=== PATIENT | male | born 1970 | race Caucasian/White ===

== ENCOUNTER 2020-04-12 16:24 | Outpatient (REF) | payer OTHER, SELFPAY | END 2020-04-12 16:25 | disposition home or self-care (01) | LOC: HO.LAB 16:24 | PROVIDERS: Visit Provider Internal Medicine | DX: Z20.828 Contact with and (suspected) exposure to other viral communicable diseases (principal) | CPT/HCPCS: C9803; U0003 ==

== ENCOUNTER 2020-04-24 08:27 | Outpatient (REF) | payer OTHER, SELFPAY | END 2020-04-24 08:28 | disposition home or self-care (01) | LOC: HO.LAB 08:27 | PROVIDERS: Visit Provider Internal Medicine | DX: Z20.828 Contact with and (suspected) exposure to other viral communicable diseases (principal) | CPT/HCPCS: C9803; U0003 ==

== ENCOUNTER → 2022-05-31 08:15 | Outpatient (BNVA) | payer SELFPAY | PROVIDERS: PCP Internal Medicine; Visit Provider Physician Assistant Medical | DX: Z02.79 Encounter for issue of other medical certificate (principal) ==

== ENCOUNTER 2023-03-14 08:44 | Outpatient (REF) | payer OTHER, SELFPAY | END 2023-03-14 08:45 | disposition home or self-care (01) | LOC: HO.10HDL 08:44 | PROVIDERS: Visit Provider Internal Medicine | DX: Z00.00 Encounter for general adult medical examination without abnormal findings (principal); R73.9 Hyperglycemia, unspecified; E78.00 Pure hypercholesterolemia, unspecified; E66.9 Obesity, unspecified; G47.33 Obstructive sleep apnea (adult) (pediatric); R30.0 Dysuria; E55.9 Vitamin D deficiency, unspecified; Z12.5 Encounter for screening for malignant neoplasm of prostate | CPT/HCPCS: 36415; 80053; 80061; 81003; 82306; 83036; 84153; 84443; 85025 ==

== ENCOUNTER 2023-03-16 16:53 | Outpatient (AMB) | payer OTHER, SELFPAY ==
[2023-03-16 16:58] VITALS: BP 142/94; PULSE 87; RESP 17; O2SAT 98; BMI 44.3
--- NOTE | 2023-03-16 16:58 | MHC.PC.OV ---
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 Required: No Accompanied by: Self / Same As Patient Allergies animal dander Allergy (Unknown, Verified 03/16/23 18:24) WHEEZING banana Allergy (Unknown, Verified 03/16/23 18:24) ITCHY THROAT, WHEEZING cranberry [Cranberry] Allergy (Unknown, Verified 03/16/23 18:24) WHEEZING latex Allergy (Unknown, Verified 03/16/23 18:24) WHEEZY penicillin V Allergy (Unknown, Verified 03/16/23 18:24) hives Penicillins Allergy (Unknown, Verified 03/16/23 18:24) UNKNOWN ENVIRONMENTAL Allergy (Unknown, Uncoded 03/16/23 18:24) WHEEZING SEASONAL ALLERGIES Allergy (Unknown, Uncoded 03/16/23 18:24) WHEEZING Medication List - Last Reconciled 03/16/23 by Nishant Marvin MD albuterol sulfate 90 mcg/actuation 2 puffs inhalation Q6H PRN [CPAP device As directed] [CPAP SUPPLIES (MASK, FILTERS, HOSES and HEADGEAR) As directed] montelukast 10 mg PO QPM Tobacco use date assessed: 11/14/22 Dental Screening Dental Screen Date: 03/16/23 Did you have a dental visit in the last 12 months?: Yes Did you have a dental problem in the last 6 months where you did not have access to dental care?: No Was dental information given to patient?: Patient has dentist HPI Annual Exam HPI Details Patient comes in today for his annual physical examination - was last seen by me almost 3 years ago now on 06/24/2020 States that he is currently experiencing some issues with allergies - reports (+) recurrent nasal congestion and on and off coughing for the past few weeks Also notes (+) mild chest congestion and occasional tightness lately, especially with increased activity States that he has not been taking any OTC allergy meds lately Has Montelukast, which he just refilled recently, but admits that he often forgets to take it more than he remembers to take it States that he does not think he needs to be taking it regularly - is wondering what it will do that he needs to be taking it, if at all He denies any fever or sore throat; denies any headaches or dizziness Denies any chest pains, no increased SOB although he has noticed on and off chest tightness, especially with activity or exertion, as mentioned above No nausea/vomiting, no abdominal pain No change in bowel habits noted Denies any acute urinary symptoms Had his labs done a couple of days ago - to discuss his results Adds that he has a CPAP device that he bought on his own as his old unit was recalled but he has not been able to get any supplies for it to start using it and is wondering how he can get the supplies for it Had his screening colonoscopy last done with Dr. Frances in 2019 and was advised to get this repeated in 5 years (2023) Would also like to get his flu shot and pneumonia vaccine today - states that he has never had a pneumonia vaccine in the past [facility] Medical History Obesity (BMI 30-39.9) Obstructive sleep apnea Allergic rhinitis Migraine equivalent syndrome Sinusitis COVID-19 Hernia Asthma Surgical History Status post colonoscopy (~11/13/18) Status post balloon dilatation of esophageal stricture (~05/09/12) Family History Father No problems noted. Mother High blood pressure High cholesterol Cancer COPD (chronic obstructive pulmonary disease) Social History Housing: House Alcohol intake: current Alcohol intake frequency: a few times a week Patient Tobacco Use Status: Never used Tobacco service: No Current occupational status: employed Cognitive needs: No Hearing needs: No Vision needs: No Questionnaire PHQ-9 Over the last 2 weeks, how often have you been bothered by any of the following problems? 1. Little interest or pleasure in doing things: not at all 2. Feeling down, depressed, or hopeless: not at all 3. Trouble falling or staying asleep, or sleeping too much: not at all 4. Feeling tired or having little energy: not at all 5. Poor appetite or overeating: not at all 6. Feeling bad about yourself - or that you are a failure or have let yourself or your family down: not at all 7. Trouble concentrating on things, such as reading the newspaper or watching television: not at all 8. Moving or speaking so slowly that other people could have noticed. Or the opposite - being so fidgety or restless that you have been moving around a lot more than usual: not at all 9. Thoughts that you would be better off or of hurting yourself in some way: not at all Total score: 0 Depression Screening Interpretation: Negative Depression Screening Done: Yes [id number] - PHQ-9 Billing: Yes Source: Developed by Drs. Rick Fuller, Jasmin Berger, Jaiden Hudson and colleagues, with an educational jason from [employer]. Thrive Questionnaire Date Thrive assessed: 03/16/23 I am a: Patient What is your living situation today?: I have a steady place to live Within the past 12 months, did the food you bought not last and you didn't have the money to get more?: Never true Within the past 12 months, did you worry whether your food would run out before you got money to buy more?: Never true Do you have trouble paying for medicines?: No Do you have trouble getting transportation to medical appointments?: No Do you have trouble paying your heating and electricity bill?: No Do you have trouble taking care of your child, family member or friend?: No Do you have trouble with day-to-day activities such as bathing, preparing meals, shopping, managing finances, etc.?: No Are you currently unemployed and looking for a job?: No Are you interested in more education?: No Currently or been in a relationship where the following occur: no concerns reported AUDIT C Alcohol Use Questionnaire (AUDIT-C) 1. How often do you have a drink containing alcohol?: Monthly or less 2. How many drinks containing alcohol do you have on a typical day when you are drinking?: 5 or 6 3. How often do you have six or more drinks on one occasion?: Never Total Score: 3 Score Reviewed/Action Taken: Yes OTILIA-7 AMB Questionnaire OTILIA-7 Date OTILIA - 7 assessed: 11/14/22 Source: Developed by Drs. Rick Fuller, Jasmin Berger, Jaiden Hudson and colleagues, with an educational jason from [employer]. Review of Systems Const Denies chills, Reports fatigue, Denies fever(s), Denies headache(s), Denies malaise and Denies weakness Eyes Denies blurry vision, Denies change in vision, Denies irritation and Denies itchy eyes ENT Denies dysphagia, Denies dizziness, Denies otalgia, Denies headache(s), Reports nasal congestion (on and off), Denies neck pain, Denies odynophagia and Denies sore throat Card Denies chest pain, Denies rapid heart rate, Denies irregular heart rhythm, Denies palpitations and Denies dyspnea Resp Reports chest congestion (occasionally - chest feels tight at times), Reports cough (on and off), Denies dyspnea and Reports wheezing (occasionally) GI Denies abdominal pain, Denies bloating, Denies constipation, Denies dysphagia, Denies heartburn, Denies diarrhea, Denies nausea, Denies odynophagia and Denies vomiting Denies hematuria, Denies difficulty urinating, Denies dysuria, Denies urinary frequency and Denies urinary urgency Musc Denies back pain, Denies arthralgias, Denies joint swelling, Denies muscle weakness and Denies neck pain Skin/Breast Denies change in pigmentation, Denies lesions, Denies rash and Denies unusual bruising Neuro Denies dizziness, Denies headache(s), Denies paresthesias and Denies weakness Endo Reports fatigue and Denies palpitations Aller/Immun Denies itchy eyes and Reports wheezing (occasionally) Physical exam (Primary Care) Vital Signs: Last Vital Signs Pulse 87 03/16/23 16:58 Resp 17 03/16/23 16:58 BP 142/94 H 03/16/23 16:58 Pulse Ox 98 03/16/23 16:58 Oxygen Delivery Method Room Air 03/16/23 16:58 BMI result Body Mass Index 44.3 Tobacco/Smoking Status: Tobacco use Status Tobacco use date assessed 11/14/22 03/16/23 16:58 Patient Tobacco Use Status Never used Tobacco 03/16/23 16:58 PHQ-9: PHQ-9 Score PHQ-9: Total score 0 03/16/23 17:24 Depression Screening Interpretation: Negative Thrive Assessment: Date of Thrive Assessment Date Thrive assessed 11/14/22 03/16/23 16:58 Currently or been in a relationship where the following occur: no concerns reported Const General: no acute distress, alert and awake Orientation/consciousness: patient oriented x3 [facility] Head: Yes normocephalic and Yes atraumatic Ears: external ears normal, TM's normal bilaterally and EAC's normal General nose exam: No nasal discharge present Face and sinus: Yes normal facial exam and Yes sinuses nontender Teeth and gingiva: dentition normal Throat: Yes posterior oropharynx normal and Yes tonsils normal (no TP congestion) Eyes Eyelids: Yes eyelids normal Conjunctivae: conjunctivae normal Pupils: Equal, round and reactive pupils present EOM: EOMs intact bilaterally Neck Neck: Yes no lymphadenopathy and Yes supple Thyroid: Thyroid normal Resp Auscultation: no crackles, no rales, rhonchi (scattered) throughout, wheezes (occasional, faint) expiratory wheezes and diminished lung sounds (slightly) bilateral Cardio Rate: regular rate Rhythm: regular rhythm Heart sounds: no murmurs GI Palpation (GI): Soft to palpation, nontender and No hepatosplenomegaly present Auscultation: normal bowel sounds General: Yes no CVA tenderness Back/Spine/Pelvis Back: no CVA tenderness Thoracic/Lumbar Spine: thoracic and lumbar spine normal to inspection Skin Lesions: no lesions Rashes: no rashes Neuro General: patient oriented x3, moves all extremities, no focal motor deficits and CN's II-XI intact bilaterally Cranial nerves: Yes Equal, round and reactive pupils present Cognition (Neuro): normal cognition Gait exam (Neuro): Normal gait present Extrem General: Yes no clubbing, cyanosis or edema Office Procedures Flu Questionnaire Does the patient have a severe egg allergy?: No Does the patient have severe life threatening allergies?: No Does the patient have a fever or illness today?: No Has the patient ever had Guillain-[place] Syndrome?: No Has the patient ever had any past reaction to a flu shot?: No Immunizations flu vacc [id number] 6mos up(PF) 60 mcg(15 mcgx4)/0.5 mL IM syringe Performing Provider: Nishant Marvin MD Performing Location: [facility] Administered by: KIERRA Garcia on 03/16/23 17:24 Dose Route Admin Location Dispensed Lot Number Expiration Date NDC Journeyman Operator Assistant 0.5 mL IM Left Deltoid 0.5 mL [id number] 12/02/23 99206-844-77 [employer] VIS Given Date VIS Provided VIS Publication Date 03/16/23 Single Vaccine 21 Eligibility Eligibility Date Funding Source Not VFC Eligible 03/16/23 Private pneumoc 20-chrissy conj-dip cr(PF) 0.5 mL IM syringe Performing Provider: Nishant Marvin MD Performing Location: [facility] Administered by: KIERRA Garcia on 03/16/23 17:26 Dose Route Admin Location Dispensed Lot Number Expiration Date ND Journeyman Operator Assistant 0.5 mL IM Right Deltoid 0.5 mL [id number] 04/03/24 8580-1409-84 WYETH/PFIZER VIS Given Date VIS Provided VIS Publication Date 03/16/23 Single Vaccine 21 Eligibility Eligibility Date Funding Source Not VFC Eligible 03/16/23 Private Results Reviewed Results Reviewed: Laboratory Tests 03/14/23 08:50 WBC 5.3 Hgb 14.8 Hct 43.0 Plt Count 190 Eos % (Auto) 6.0 H Sodium 141 Potassium 4.2 Creatinine 0.87 Estimated GFR > 60 Fasting Glucose 102 H Hemoglobin A1c % 4.6 Calcium 9.5 AST 29 ALT 42 H Triglycerides 119 Cholesterol 153 LDL Cholesterol, Calc 82 HDL Cholesterol 48 PSA Screen 2.15 25-OH Vitamin D Total 41.6 TSH 1.56 Urine pH 6.0 Ur Specific [place] 1.025 Urine Protein Negative Urine Glucose (UA) Negative Urine Blood Negative Assessment and Plan Assessment & Plan (1) Annual physical exam: Code(s): Z00.00 - Encounter for general adult medical examination without abnormal findings Plan: Results of his labs done a couple of days ago reviewed and discussed with patient He is up-to-date with his screening colonoscopy - was last done by Dr. Frances in 2018 and he is supposed to get this repeated in 5 years (2023) Serum PSA level done a couple of days ago came back normal (2) Asthma: Code(s): J45.909 - Unspecified asthma, uncomplicated Qualifiers: Asthma severity: mild Asthma persistence: intermittent Asthma complication type: uncomplicated Qualified Code(s): J45.20 - Mild intermittent asthma, uncomplicated Plan: Patient is advised that his asthma currently does NOT appear well-controlled and some of his recent symptoms (including chest tightness and recurrent cough) are mostly related to his asthma and not due to allergies Have advised him again (as I have mentioned to him in the past) that his Montelukast can help with BOTH his asthma and his allergies and his asthma has been well-controlled in the past on Montelukast alone, not because of his rescue inhaler (Albuterol) Advised that he SHOULD go back to taking his Montelukast 10 mg Q PM and continue on Albuterol HFA 1 to 2 inhalations Q 6 hours only as needed (3) Allergic rhinitis: Code(s): J30.9 - Allergic rhinitis, unspecified Qualifiers: Allergic rhinitis trigger: unspecified Allergic rhinitis seasonality: unspecified Qualified Code(s): J30.9 - Allergic rhinitis, unspecified Plan: Have reminded him again that Montelukast can also help with his allergies and he should start back on it and take it daily He can also again take OTC Claritin (Loratadine) 10 mg QD or Cetirizine 10 mg QD if needed He was getting allergy injections from Dr. Gamboa in the past but has not gotten any shots in the past few years now (4) Migraine equivalent syndrome: Code(s): G43.109 - Migraine with aura, not intractable, without status migrainosus Plan: Patient states that his migraine seems to still be stable/controlled and has not been bothering him much lately and does not need anything for headaches at this time He has seen neurology in the past but has not been back for follow up in a few years now (5) Obstructive sleep apnea: Code(s): G47.33 - Obstructive sleep apnea (adult) (pediatric) Plan: States that he acquired a new CPAP device on his own [id number] about a year or so ago as his old unit was included in a recall but he has not been able to use his new device at all as he does not have the parts needed to use it, including the mask, hose and filters, and does not know where he can get them Have advised patient that we can write him a prescription for these and send them to a local medical or surgical instrument maker supplier and see if they can help him out with these Alternatively, if the medical supplier cannot help him, have advised that we can refer him to Sleep Medicine for further management and they may be able to help him obtain the necessary equipments and parts for him to start using his device again (6) Morbid obesity with BMI of 40.0-44.9, adult: Code(s): E66.01 - Morbid (severe) obesity due to excess calories; Z68.41 - Body mass index [BMI] 40.0-44.9, adult Plan: Reinforced diet/exercise as tolerated/lose weight - is aware that he has gained a lot of weight since we last saw him a few years ago Plan Per request, flu vaccine and pneumonia vaccine given today Follow up in 6 months Orders: Orders Influenza [id number] Immunization Today Z23 - Encounter for immunization Pneumococcal 20 Immunization Today Z23 - Encounter for immunization Medications: New [CPAP SUPPLIES (MASK, FILTERS, HOSES and HEADGEAR)] As directed 1 ea 0RF G47.33 - Obstructive sleep apnea (adult) (pediatric) Coding Level of Care Code Est Pt Prev Care 40-64y(26742) Diagnoses Annual physical exam Z00.00 Mild intermittent asthma without complication J45.20 Asthma severity: mild Asthma persistence: intermittent Asthma complication type: uncomplicated Allergic rhinitis, unspecified seasonality, unspecified trigger J30.9 Allergic rhinitis trigger: unspecified Allergic rhinitis seasonality: unspecified Migraine equivalent syndrome G43.109 Obstructive sleep apnea G47.33 Morbid obesity with BMI of 40.0-44.9, adult E66.01; Z68.41
== END 2023-03-16 17:36 | disposition home or self-care (01) ==
PROVIDERS: PCP Internal Medicine; Visit Provider Internal Medicine
DX: Z00.00 Encounter for general adult medical examination without abnormal findings (principal); E66.01 Morbid (severe) obesity due to excess calories; Z68.41 Body mass index [BMI] 40.0-44.9, adult; J45.20 Mild intermittent asthma, uncomplicated; Z23 Encounter for immunization; J30.9 Allergic rhinitis, unspecified; G43.109 Migraine with aura, not intractable, without status migrainosus; G47.33 Obstructive sleep apnea (adult) (pediatric)
CPT/HCPCS: 90471; 90472; 90677; 90686; 99396

== ENCOUNTER 2023-12-11 16:50 | Outpatient (AMB) | payer BC, SELFPAY ==
--- NOTE | 2023-12-11 16:58 | MHC.PC.OV ---
Vital Signs 12/11/23 17:01 12/11/23 17:28 Height 5 ft 4.5 in Weight 263 lb 2 oz BMI 44.5 BP 144/92 H 146/92 H Blood Pressure Location Lt brachial Lt brachial Position Sitting Sitting Pulse 90 Pulse Source Pulse Oximeter Pulse Oximetry (%) 98 Oxygen Delivery Method Room Air Intake Visit Reasons: 6 month f/u Outplacement Consultant Required: No Accompanied by: Self / Same As Patient Allergies animal dander Allergy (Unknown, Verified 12/11/23 17:10) WHEEZING banana Allergy (Unknown, Verified 12/11/23 17:10) ITCHY THROAT, WHEEZING cranberry [Cranberry] Allergy (Unknown, Verified 12/11/23 17:10) WHEEZING latex Allergy (Unknown, Verified 12/11/23 17:10) WHEEZY penicillin V Allergy (Unknown, Verified 12/11/23 17:10) hives Penicillins Allergy (Unknown, Verified 12/11/23 17:10) UNKNOWN ENVIRONMENTAL Allergy (Unknown, Uncoded 12/11/23 17:10) WHEEZING SEASONAL ALLERGIES Allergy (Unknown, Uncoded 12/11/23 17:10) WHEEZING Medication List - Last Reconciled 12/11/23 by Nishant Marvin MD albuterol sulfate 90 mcg/actuation 2 puffs inhalation Q6H PRN colchicine 0.3 mg (1/2 x 0.6 mg) PO DAILY 5 days [CPAP device As directed] [CPAP SUPPLIES (MASK, FILTERS, HOSES and HEADGEAR) As directed] montelukast 10 mg PO QPM Tobacco use date assessed: 12/11/23 Dental Screening Dental Screen Date: 12/11/23 Did you have a dental visit in the last 12 months?: Yes Did you have a dental problem in the last 6 months where you did not have access to dental care?: No Was dental information given to patient?: Patient has dentist HPI 6 month f/u HPI Details Patient comes in today for his follow up visit States that he currently feels okay He denies any headaches or dizziness Denies any chest pains, no SOB - states that his asthma is again much better controlled since he started back on his Montelukast No nausea/vomiting, no abdominal pain No change in bowel habits noted He continues to use his CPAP device when sleeping at night -states that it has helped him a lot and he feels more alert during the day with less drowsiness and somnolence since he started on his CPAP States that his blood pressure still seems to be high often as 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 Mother High blood pressure High cholesterol Cancer COPD (chronic obstructive pulmonary disease) Social History Housing: House Alcohol intake: current Alcohol intake frequency: a few times a week Patient Tobacco Use Status: Never used Tobacco e-Cigarette/Vaping Use: Never Used service: No Current occupational status: employed Cognitive needs: No Hearing needs: No Vision needs: No Questionnaire PHQ-9 Over the last 2 weeks, how often have you been bothered by any of the following problems? 1. Little interest or pleasure in doing things: not at all 2. Feeling down, depressed, or hopeless: not at all 3. Trouble falling or staying asleep, or sleeping too much: not at all 4. Feeling tired or having little energy: not at all 5. Poor appetite or overeating: not at all 6. Feeling bad about yourself - or that you are a failure or have let yourself or your family down: not at all 7. Trouble concentrating on things, such as reading the newspaper or watching television: not at all 8. Moving or speaking so slowly that other people could have noticed. Or the opposite - being so fidgety or restless that you have been moving around a lot more than usual: not at all 9. Thoughts that you would be better off or of hurting yourself in some way: not at all Total score: 0 Depression Screening Interpretation: Negative Depression Screening Done: Yes 81866 - PHQ-9 Billing: Yes Source: Developed by Drs. Rick Fuller, Jasmin Berger, Jaiden Hudson and colleagues, with an educational jason from [employer]. Thrive Questionnaire Date Thrive assessed: 12/11/23 I am a: Patient What is your living situation today?: I have a steady place to live Within the past 12 months, did the food you bought not last and you didn't have the money to get more?: Never true Within the past 12 months, did you worry whether your food would run out before you got money to buy more?: Never true Do you have trouble paying for medicines?: No Do you have trouble getting transportation to medical appointments?: No Do you have trouble paying your heating and electricity bill?: No Do you have trouble taking care of your child, family member or friend?: No Do you have trouble with day-to-day activities such as bathing, preparing meals, shopping, managing finances, etc.?: No Are you currently unemployed and looking for a job?: No Are you interested in more education?: No Please select the resources that you would like help with: None Currently or been in a relationship where the following occur: No concerns reported THRIVE Score: 0 AUDIT C Alcohol Use Questionnaire (AUDIT-C) 1. How often do you have a drink containing alcohol?: Monthly or less 2. How many drinks containing alcohol do you have on a typical day when you are drinking?: 5 or 6 3. How often do you have six or more drinks on one occasion?: Never Total Score: 3 Score Reviewed/Action Taken: Yes OTILIA-7 AMB Questionnaire OTILIA-7 Date OTILIA - 7 assessed: 12/11/23 Feeling nervous, anxious, or on edge: 0 = Not at all Not being able to stop or control worryin = Not at all Worrying too much about different things: 0 = Not at all Trouble relaxin = Not at all Being so restless that it is hard to sit still: 0 = Not at all Becoming easily annoyed or irritable: 0 = Not at all Feeling afraid as if something awful might happen: 0 = Not at all Total OTILIA-7 score (0-4 normal; 5-9 mild; 10-14 moderate; 15-21 severe): 0 Source: Developed by Drs. Rick Fuller, Jasmin Berger, Jaiden Hudson and colleagues, with an educational jason from [employer]. OTILIA-7 Assessment Billing OTILIA-7 Assessment Tool: OTILIA-7 Assessment 07449 Review of Systems Const Denies chills, Denies fatigue, Denies fever(s) and Denies headache(s) ENT Denies dysphagia, Denies dizziness, Denies otalgia, Denies headache(s), Denies neck pain, Denies odynophagia and Denies sore throat Card Denies chest pain, Denies palpitations and Denies dyspnea Resp Denies cough and Denies dyspnea GI Denies abdominal pain, Denies constipation, Denies dysphagia, Denies heartburn, Denies diarrhea, Denies nausea, Denies odynophagia and Denies vomiting Denies dysuria, Denies nocturia and Denies urinary frequency Musc Denies back pain and Denies neck pain Skin/Breast Denies rash Neuro Denies dizziness and Denies headache(s) Endo Denies fatigue and Denies palpitations Physical exam (Primary Care) Vital Signs: Last Vital Signs Pulse 90 12/11/23 17:01 BP 144/92 H 12/11/23 17:01 Pulse Ox 98 12/11/23 17:01 Oxygen Delivery Method Room Air 12/11/23 17:01 BMI result Body Mass Index 44.5 Tobacco/Smoking Status: Tobacco use Status Tobacco use date assessed 12/11/23 12/11/23 17:03 Patient Tobacco Use Status Never used Tobacco 12/11/23 17:03 e-Cigarette/Vaping Use Never Used 12/11/23 17:03 PHQ-9: PHQ-9 Score PHQ-9: Total score 0 12/11/23 17:03 Depression Screening Interpretation: Negative Thrive Assessment: Date of Thrive Assessment Date Thrive assessed 12/11/23 12/11/23 17:03 Currently or been in a relationship where the following occur: No concerns reported Const General: no acute distress and alert HENMT Throat: Yes posterior oropharynx normal and Yes tonsils normal (no TP congestion) Neck Neck: Yes no lymphadenopathy and Yes supple Thyroid: Thyroid normal Resp Auscultation: clear to auscultation bilaterally, no rales and no wheezes Cardio Rate: regular rate Rhythm: regular rhythm Heart sounds: no murmurs GI Palpation (GI): Soft to palpation and nontender Auscultation: normal bowel sounds General: Yes no CVA tenderness Back/Spine/Pelvis Back: no CVA tenderness Thoracic/Lumbar Spine: No lumbar spinal tenderness Skin Rashes: no rashes Extrem General: Yes no clubbing, cyanosis or edema Assessment and Plan Assessment & Plan (1) Essential hypertension: Code(s): I10 - Essential (primary) hypertension Plan: Have advised patient that with his multiple elevated BP readings, he now actually has hypertension and not just elevated blood pressure anymore Reinforced low sodium diet Have offered to start him on BP meds but he again declined - states that he will now work seriously on trying to lose weight first and if that is not enough to get his BP to goal, then he will agree to start taking the Rx He is aware of the effects and consequences of uncontrolled or suboptimally controlled BP, including renal, cardiac and [employer] events Have advised him in the meantime to check and monitor his blood pressure regularly - goal is systolic BP of 120 mm or less and diastolic BP of 85 mm or less (2) Asthma: Code(s): J45.909 - Unspecified asthma, uncomplicated Qualifiers: Asthma severity: mild Asthma persistence: intermittent Asthma complication type: uncomplicated Qualified Code(s): J45.20 - Mild intermittent asthma, uncomplicated Plan: Stable/controlled Patient states that his asthma has been much better controlled again since he started back on Montelukast 10 mg Q PM at our suggestion at his last visit a few months ago Continue Montelukast 10 mg Q PM and Albuterol HFA 1 to 2 inhalations Q 6 hours only as needed (3) Allergic rhinitis: Code(s): J30.9 - Allergic rhinitis, unspecified Qualifiers: Allergic rhinitis trigger: unspecified Allergic rhinitis seasonality: unspecified Qualified Code(s): J30.9 - Allergic rhinitis, unspecified Plan: Continue Montelukast 10 mg Q PM He can also still take OTC Claritin (Loratadine) 10 mg QD or Cetirizine 10 mg QD if needed He was getting allergy injections from Dr. Gamboa in the past but has not gotten any shots in the past few years (4) Migraine equivalent syndrome: Code(s): G43.109 - Migraine with aura, not intractable, without status migrainosus Plan: Patient states that his migraine has been stable/controlled and has not been bothering him lately; he does not need anything for headaches at this time He has seen neurology in the past but has not been back for follow up in a few years (5) Obstructive sleep apnea: Code(s): G47.33 - Obstructive sleep apnea (adult) (pediatric) Plan: Continue using his CPAP device when sleeping at night daily Feels that his CPAP therapy has helped him a lot as he feels more alert during the day (6) Morbid obesity with BMI of 40.0-44.9, adult: Code(s): E66.01 - Morbid (severe) obesity due to excess calories; Z68.41 - Body mass index [BMI] 40.0-44.9, adult Plan: Reinforced diet/exercise as tolerated/lose weight Plan To return in 6 months for his next annual physical examination He is reminded to get his follow up labs done just BEFORE he comes in for his appointment in 6 months Orders: Orders Comprehensive [place]. Panel Fast 6 Months E78.00 - Pure hypercholesterolemia, unspecified, Z00.00 - Encounter for general adult medical examination without abnormal findings TSH reflex Free T4 6 Months E78.00 - Pure hypercholesterolemia, unspecified, Z00.00 - Encounter for general adult medical examination without abnormal findings Vitamin D 25-OH Total 6 Months E55.9 - Vitamin D deficiency, unspecified, Z00.00 - Encounter for general adult medical examination without abnormal findings Prostate Specific Antigen Scr 6 Months Z00.00 - Encounter for general adult medical examination without abnormal findings Complete Blood Count Auto Diff 6 Months D64.9 - Anemia, unspecified, Z00.00 - Encounter for general adult medical examination without abnormal findings Lipid Panel 6 Months E78.00 - Pure hypercholesterolemia, unspecified, Z00.00 - Encounter for general adult medical examination without abnormal findings UA CC w/rflx Micro + Cult 6 Months R30.0 - Dysuria, Z00.00 - Encounter for general adult medical examination without abnormal findings Referrals Nutrition/Dietitian Referral E66.01 - Morbid (severe) obesity due to excess calories, Z68.41 - Body mass index [BMI] 40.0-44.9, adult Coding Level of Care Code Est Pt Level 4 (43589) Diagnoses Essential hypertension I10 Mild intermittent asthma without complication J45.20 Asthma severity: mild Asthma persistence: intermittent Asthma complication type: uncomplicated Allergic rhinitis, unspecified seasonality, unspecified trigger J30.9 Allergic rhinitis trigger: unspecified Allergic rhinitis seasonality: unspecified Migraine equivalent syndrome G43.109 Obstructive sleep apnea G47.33 Morbid obesity with BMI of 40.0-44.9, adult E66.01; Z68.41 Additional Codes OTILIA-7 Assessment Billing - OTILIA-7 Assessment Tool: OTILIA-7 Assessment 88732 ([id number])
[2023-12-11 17:01] VITALS: BP 144/92; PULSE 90; O2SAT 98; BMI 44.5
[2023-12-11 17:28] VITALS: BP 146/92
== END 2023-12-11 17:30 | disposition home or self-care (01) ==
PROVIDERS: PCP Internal Medicine; Visit Provider Internal Medicine
DX: I10 Essential (primary) hypertension (principal); E66.01 Morbid (severe) obesity due to excess calories; Z68.41 Body mass index [BMI] 40.0-44.9, adult; J45.20 Mild intermittent asthma, uncomplicated; J30.9 Allergic rhinitis, unspecified; G43.109 Migraine with aura, not intractable, without status migrainosus; G47.33 Obstructive sleep apnea (adult) (pediatric)
CPT/HCPCS: 99214

== ENCOUNTER 2023-12-19 13:19 | Outpatient (AMB) | payer BC, SELFPAY ==
[2023-12-19 13:42] VITALS: BMI 45.7
--- NOTE | 2023-12-19 13:42 | A.OFFVIS_ITS ---
VS Expanded 12/19/23 13:42 Height 5 ft 4.5 in Weight 270 lb 4.587 oz BMI 45.7 Intake Visit Reasons: MORBID OBESITY/ CONFIRMED Allergies animal dander Allergy (Unknown, Verified 12/11/23 17:10) WHEEZING banana Allergy (Unknown, Verified 12/11/23 17:10) ITCHY THROAT, WHEEZING cranberry [Cranberry] Allergy (Unknown, Verified 12/11/23 17:10) WHEEZING latex Allergy (Unknown, Verified 12/11/23 17:10) WHEEZY penicillin V Allergy (Unknown, Verified 12/11/23 17:10) hives Penicillins Allergy (Unknown, Verified 12/11/23 17:10) UNKNOWN ENVIRONMENTAL Allergy (Unknown, Uncoded 12/11/23 17:10) WHEEZING SEASONAL ALLERGIES Allergy (Unknown, Uncoded 12/11/23 17:10) WHEEZING Nutrition Presentation Details: Patient presents for medical nutrition therapy for morbid obesity. Patient was referred by primary care physician Dr. Marvin. Patient reports having tried meal replacements in the past leading to 230 lb weight loss in a month, but also leading to lack of taste for food. Patient wants to work on healthy meal pattern B: ham/eggs/2 wraps, coffee with sugar /cream L: BBq chicken and beans , kombucha or seltzer water snack: soup ( clam chowder/split peas) dinner: chicken / hamburger with bun, water Food frequency Dairy: 10+ Fruits: 1 a day Fish: 1 time per week Vegetables: Typically starchy vegetables Fried foods: 3 to 4 times week Physical activity: Daily life activities Alcohol: Positive Smoking: Denies BS Monitoring Most Recent Diabetes Results: Cholesterol 153 mg/dL (<200) 03/14/23 HDL Cholesterol 48 mg/dL (>40) 03/14/23 Triglycerides 119 mg/dL (<150) 03/14/23 Creatinine 0.87 mg/dL (0.5-1.4) 03/14/23 Blood Urea Nitrogen 21 mg/dL (9-16) H 03/14/23 Sodium 141 mmol/L (135-145) 03/14/23 Potassium 4.2 mmol/L (3.3-5.1) 03/14/23 Chloride 108 mmol/L (96-108) 03/14/23 Carbon Dioxide 22 mmol/L (22-29) 03/14/23 Calcium 9.5 mg/dL (8.4-10.2) 03/14/23 AST 29 U/L (5-37) 03/14/23 ALT 42 U/L (0-40) H 03/14/23 Total Protein 6.9 g/dL (6.5-8.0) 03/14/23 Albumin 4.1 g/dL (3.5-5.0) 03/14/23 SRP-Fkgulgy-Ef.Jeor Equation Height: 5 ft 4.5 in Weight: 270 lb Resting Metabolic Rate: 1981.81 Calculated Activity Level: Sedentary Calories Needed to Maintain Weight: 2378.17 Diagnosis Nutrition problem #1: excessive energy intake As related to (etiology) #1: diagnosis As evidenced by (sign/symptom) #1: high BMI (45.7(12/2023)) [facility] Medical History (Updated 12/11/23 @ 18:02 by Nishant Marvin MD) Essential hypertension Obesity (BMI 30-39.9) Obstructive sleep apnea Allergic rhinitis Migraine equivalent syndrome Sinusitis COVID-19 Hernia Asthma Surgical History Status post colonoscopy (~11/13/18) Status post balloon dilatation of esophageal stricture (~05/09/12) Family History Father No problems noted. Mother High blood pressure High cholesterol Cancer COPD (chronic obstructive pulmonary disease) Social History Housing: House Alcohol intake: current Alcohol intake frequency: a few times a week Patient Tobacco Use Status: Never used Tobacco e-Cigarette/Vaping Use: Never Used service: No Current occupational status: employed Cognitive needs: No Hearing needs: No Vision needs: No Assessment & Plan Assessment & Plan (1) Obesity (BMI 30-39.9): Code(s): E66.9 - Obesity, unspecified Category: Medical Plan: Wt: 123 Kg ( 12/2023 ) Est kcal needs as per MSJ: 2500 (40% carb, 30% protein/fat) Est fluid needs as per 25-30 ml/d: Est prot per day as per 1 g/kg bw: Recommend fiber intake : 8-10 g per day and gradually increase to 25-28 g per day for women and 35-38 g for men or as tolerated Recommend sodium intake per day : less than 2000 mg Educated patient on: ( R = reviewed V = verbalizes understanding N/R = needs review N/A = not applicable * Food sources of carbohydrate, adequate serving sizes and its role in various health conditions: R * Differences between complex carbohydrates a simple carbohydrates, role of fiber in diet: R V N/R * Lean protein sources of foods: R V * Differences between types of fats and role in diet (mono on saturated fat fatty acids, saturated fatty acids, trans fats): R * Food sources of sodium in salt and healthy modifications for heart health in kidney health: R V R/V * Vitamins and minerals: R V N/R * Healthy plate method concept: R * Physical activity: Benefits a precaution: R V N/R Patient Instructions: Practice mindful eating Reduce on empty calorie beverages (sodas, choose drinks, alcohol), choose water herbs or fruit infused water See healthy plate method meal ideas low in fat and sugars Coding Level of Care Code Nutr Indiv Intake (78388) Diagnoses Obesity (BMI 30-39.9) E66.9 Time Spent (min) 30
[2023-12-26 08:41] VITALS: BMI 45.6
== END 2023-12-19 14:12 | disposition home or self-care (01) ==
PROVIDERS: PCP Internal Medicine; Visit Provider Dietitian, Registered
DX: E66.9 Obesity, unspecified (principal)

== ENCOUNTER → 2023-12-19 13:19 | Outpatient (BNVA) | payer BC, SELFPAY | PROVIDERS: PCP Internal Medicine; Visit Provider Dietitian, Registered | DX: E66.9 Obesity, unspecified (principal); Z68.41 Body mass index [BMI] 40.0-44.9, adult; Z71.3 Dietary counseling and surveillance | CPT/HCPCS: 97802 ==

== ENCOUNTER 2024-01-31 14:03 | Outpatient (AMB) | payer BC, SELFPAY ==
[2024-01-31 14:06] VITALS: BMI 44.9
--- NOTE | 2024-01-31 14:06 | A.OFFVIS_ITS ---
VS Expanded 01/31/24 14:06 Height 5 ft 4.5 in Weight 265 lb 10.512 oz BMI 44.9 Intake Visit Reasons: Obesity/CONFIRMED Allergies animal dander Allergy (Unknown, Verified 12/11/23 17:10) WHEEZING banana Allergy (Unknown, Verified 12/11/23 17:10) ITCHY THROAT, WHEEZING cranberry [Cranberry] Allergy (Unknown, Verified 12/11/23 17:10) WHEEZING latex Allergy (Unknown, Verified 12/11/23 17:10) WHEEZY penicillin V Allergy (Unknown, Verified 12/11/23 17:10) hives Penicillins Allergy (Unknown, Verified 12/11/23 17:10) UNKNOWN ENVIRONMENTAL Allergy (Unknown, Uncoded 12/11/23 17:10) WHEEZING SEASONAL ALLERGIES Allergy (Unknown, Uncoded 12/11/23 17:10) WHEEZING Nutrition Presentation Details: Pt presents for MNT f/u for obesity Pt reports working on reduction BS Monitoring Most Recent Diabetes Results: Cholesterol 153 mg/dL (<200) 03/14/23 HDL Cholesterol 48 mg/dL (>40) 03/14/23 Triglycerides 119 mg/dL (<150) 03/14/23 Creatinine 0.87 mg/dL (0.5-1.4) 03/14/23 Blood Urea Nitrogen 21 mg/dL (9-16) H 03/14/23 Sodium 141 mmol/L (135-145) 03/14/23 Potassium 4.2 mmol/L (3.3-5.1) 03/14/23 Chloride 108 mmol/L (96-108) 03/14/23 Carbon Dioxide 22 mmol/L (22-29) 03/14/23 Calcium 9.5 mg/dL (8.4-10.2) 03/14/23 AST 29 U/L (5-37) 03/14/23 ALT 42 U/L (0-40) H 03/14/23 Total Protein 6.9 g/dL (6.5-8.0) 03/14/23 Albumin 4.1 g/dL (3.5-5.0) 03/14/23 [facility] Medical History (Updated 12/11/23 @ 18:02 by Nishant Marvin MD) Essential hypertension Obesity (BMI 30-39.9) Obstructive sleep apnea Allergic rhinitis Migraine equivalent syndrome Sinusitis COVID-19 Hernia Asthma Surgical History Status post colonoscopy (~11/13/18) Status post balloon dilatation of esophageal stricture (~05/09/12) Family History Father No problems noted. Mother High blood pressure High cholesterol Cancer COPD (chronic obstructive pulmonary disease) Social History Housing: House Alcohol intake: current Alcohol intake frequency: a few times a week Patient Tobacco Use Status: Never used Tobacco e-Cigarette/Vaping Use: Never Used service: No Current occupational status: employed Cognitive needs: No Hearing needs: No Vision needs: No Assessment & Plan Assessment & Plan (1) Obesity (BMI 30-39.9): Code(s): E66.9 - Obesity, unspecified Category: Medical Plan: Wt: 123 Kg ( 12/2023 ), 121 kg (01/25) Est kcal needs as per MSJ: 2500 (40% carb, 30% protein/fat) Est fluid needs as per 25-30 ml/d: 3700 Est prot per day as per 1 g/kg bw: 123 Recommend fiber intake : 8-10 g per day and gradually increase to 25-28 g per day for women and 35-38 g for men or as tolerated Recommend sodium intake per day : less than 2000 mg Educated patient on: ( R = reviewed V = verbalizes understanding N/R = needs review N/A = not applicable * Food sources of carbohydrate, adequate serving sizes and its role in various health conditions: R * Differences between complex carbohydrates a simple carbohydrates, role of fiber in diet: R * Lean protein sources of foods: R V * Differences between types of fats and role in diet (mono on saturated fat fatty acids, saturated fatty acids, trans fats): R * Food sources of sodium in salt and healthy modifications for heart health in kidney health: R V R/V * Vitamins and minerals: R * Healthy plate method concept: R * Physical activity: Benefits a precaution: R Patient Instructions: Increase on fluids (choose low sugar/decaf options) water /fruit/herb infused water Snack on carrots/celery vs chips Engage in walking start with 10 minutes /day and gradually increase to 30 min or as tolerated Coding Level of Care Code Nutr Indiv Subseq (25547) Diagnoses Obesity (BMI 30-39.9) E66.9 Time Spent (min) 30
== END 2024-01-31 14:30 | disposition home or self-care (01) ==
PROVIDERS: PCP Internal Medicine; Visit Provider Dietitian, Registered
DX: E66.9 Obesity, unspecified (principal)

== ENCOUNTER → 2024-01-31 14:03 | Outpatient (BNVA) | payer BC, SELFPAY | PROVIDERS: PCP Internal Medicine; Visit Provider Dietitian, Registered | DX: E66.9 Obesity, unspecified (principal); Z68.41 Body mass index [BMI] 40.0-44.9, adult; Z71.3 Dietary counseling and surveillance | CPT/HCPCS: 97803 ==

== ENCOUNTER 2024-03-06 14:32 | Outpatient (AMB) | payer BC, SELFPAY ==
[2024-03-06 14:36] VITALS: BMI 37.9
--- NOTE | 2024-03-06 14:36 | A.OFFVIS_ITS ---
VS Expanded 03/06/24 14:36 Height 5 ft 10.2 in Weight 265 lb 10.512 oz BMI 37.9 Intake Visit Reasons: Obesity/CONFIRMED Allergies animal dander Allergy (Unknown, Verified 12/11/23 17:10) WHEEZING banana Allergy (Unknown, Verified 12/11/23 17:10) ITCHY THROAT, WHEEZING cranberry [Cranberry] Allergy (Unknown, Verified 12/11/23 17:10) WHEEZING latex Allergy (Unknown, Verified 12/11/23 17:10) WHEEZY penicillin V Allergy (Unknown, Verified 12/11/23 17:10) hives Penicillins Allergy (Unknown, Verified 12/11/23 17:10) UNKNOWN ENVIRONMENTAL Allergy (Unknown, Uncoded 12/11/23 17:10) WHEEZING SEASONAL ALLERGIES Allergy (Unknown, Uncoded 12/11/23 17:10) WHEEZING Nutrition Presentation Details: Pt presents for MNT f/u for obesity Pt reports no new dietary modifications. BS Monitoring Most Recent Diabetes Results: Cholesterol 153 mg/dL (<200) 03/14/23 HDL Cholesterol 48 mg/dL (>40) 03/14/23 Triglycerides 119 mg/dL (<150) 03/14/23 Creatinine 0.87 mg/dL (0.5-1.4) 03/14/23 Blood Urea Nitrogen 21 mg/dL (9-16) H 03/14/23 Sodium 141 mmol/L (135-145) 03/14/23 Potassium 4.2 mmol/L (3.3-5.1) 03/14/23 Chloride 108 mmol/L (96-108) 03/14/23 Carbon Dioxide 22 mmol/L (22-29) 03/14/23 Calcium 9.5 mg/dL (8.4-10.2) 03/14/23 AST 29 U/L (5-37) 03/14/23 ALT 42 U/L (0-40) H 03/14/23 Total Protein 6.9 g/dL (6.5-8.0) 03/14/23 Albumin 4.1 g/dL (3.5-5.0) 03/14/23 [facility] Medical History (Updated 12/11/23 @ 18:02 by Nishant Marvin MD) Essential hypertension Obesity (BMI 30-39.9) Obstructive sleep apnea Allergic rhinitis Migraine equivalent syndrome Sinusitis COVID-19 Hernia Asthma Surgical History Status post colonoscopy (~11/13/18) Status post balloon dilatation of esophageal stricture (~05/09/12) Family History Father No problems noted. Mother High blood pressure High cholesterol Cancer COPD (chronic obstructive pulmonary disease) Social History Housing: House Alcohol intake: current Alcohol intake frequency: a few times a week Patient Tobacco Use Status: Never used Tobacco e-Cigarette/Vaping Use: Never Used service: No Current occupational status: employed Cognitive needs: No Hearing needs: No Vision needs: No Assessment & Plan Assessment & Plan (1) Obesity (BMI 30-39.9): Code(s): E66.9 - Obesity, unspecified Category: Medical Plan: Wt: 123 Kg ( 12/2023 ), 121 kg (01/25, 03/27) Est kcal needs as per MSJ: 2500 (40% carb, 30% protein/fat) Est fluid needs as per 25-30 ml/d: 3700 Est prot per day as per 1 g/kg bw: 123 Recommend fiber intake : 8-10 g per day and gradually increase to 25-28 g per day for women and 35-38 g for men or as tolerated Recommend sodium intake per day : less than 2000 mg Educated patient on: ( R = reviewed V = verbalizes understanding N/R = needs review N/A = not applicable * Food sources of carbohydrate, adequate serving sizes and its role in various health conditions: R * Differences between complex carbohydrates a simple carbohydrates, role of fiber in diet: R * Lean protein sources of foods: R V * Differences between types of fats and role in diet (mono on saturated fat fatty acids, saturated fatty acids, trans fats): R * Food sources of sodium in salt and healthy modifications for heart health in kidney health: R V R/V * Vitamins and minerals: R * Healthy plate method concept: R * Physical activity: Benefits a precaution: R * empty calorie foods: R Patient Instructions: walk 3 times a week for 30 minutes and gradually increase to 1 hour oras tolerated reduce on empty calories (beverages, sodas and similar and pastries/fats) Coding Level of Care Code Nutr Indiv Subseq (25334) Diagnoses Obesity (BMI 30-39.9) E66.9 Time Spent (min) 30
== END 2024-03-06 15:02 | disposition home or self-care (01) ==
PROVIDERS: PCP Internal Medicine; Visit Provider Dietitian, Registered
DX: E66.9 Obesity, unspecified (principal)

== ENCOUNTER → 2024-03-06 14:32 | Outpatient (BNVA) | payer BC, SELFPAY | PROVIDERS: PCP Internal Medicine; Visit Provider Dietitian, Registered | DX: E66.9 Obesity, unspecified (principal); Z68.37 Body mass index [BMI] 37.0-37.9, adult; Z71.3 Dietary counseling and surveillance | CPT/HCPCS: 97803 ==

== ENCOUNTER 2024-03-17 17:09 | Outpatient (AMB) | payer BC, SELFPAY ==
[2024-03-17 17:14] VITALS: BP 136/84; PULSE 77; O2SAT 97; BMI 44.5
--- NOTE | 2024-03-17 17:14 | MHC.PC.OV ---
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 Accompanied by: Self / Same As Patient Allergies animal dander Allergy (Unknown, Verified 03/17/24 17:40) WHEEZING banana Allergy (Unknown, Verified 03/17/24 17:40) ITCHY THROAT, WHEEZING cranberry [Cranberry] Allergy (Unknown, Verified 03/17/24 17:40) WHEEZING latex Allergy (Unknown, Verified 03/17/24 17:40) WHEEZY penicillin V Allergy (Unknown, Verified 03/17/24 17:40) hives Penicillins Allergy (Unknown, Verified 03/17/24 17:40) UNKNOWN ENVIRONMENTAL Allergy (Unknown, Uncoded 03/17/24 17:40) WHEEZING SEASONAL ALLERGIES Allergy (Unknown, Uncoded 03/17/24 17:40) WHEEZING Medication List - Last Reconciled 03/17/24 by Nishant Marvin MD albuterol sulfate 90 mcg/actuation 2 puffs inhalation Q6H PRN colchicine 0.3 mg (1/2 x 0.6 mg) PO DAILY 5 days [CPAP device As directed] [CPAP SUPPLIES (MASK, FILTERS, HOSES and HEADGEAR) As directed] montelukast 10 mg PO QPM Tobacco use date assessed: 03/17/24 Dental Screening Dental Screen Date: 03/17/24 Did you have a dental visit in the last 12 months?: Yes Did you have a dental problem in the last 6 months where you did not have access to dental care?: No Was dental information given to patient?: Patient has dentist HPI Physical HPI Details Patient comes in today for his annual physical examination States that he feels okay but still has a recurrent cough and some congestion, which he thinks are likely due to allergies He had a bout with bronchitis last month that he states improved with the Z-robert that we sent in for him He denies any fever or sore throat; denies any headaches or dizziness Denies any chest pains, no increased SOB No nausea/vomiting, no abdominal pain No change in bowel habits noted He denies any acute urinary symptoms States that he tried to go get his labs done the other day but was advised that he has no labs ordered until June 2024 Adds that he recently received a letter/notice from Dr. Frances' office informing him that it is time for his repeat colonoscopy and that he should call Dr. Frances' office to schedule his appointment [facility] Medical History Essential hypertension Obesity (BMI 30-39.9) Obstructive sleep apnea Allergic rhinitis Migraine equivalent syndrome Sinusitis COVID-19 Hernia Asthma Surgical History Status post colonoscopy (~11/13/18) Status post balloon dilatation of esophageal stricture (~05/09/12) Family History Father No problems noted. Mother High blood pressure High cholesterol Cancer COPD (chronic obstructive pulmonary disease) Social History Housing: House Alcohol intake: current Alcohol intake frequency: a few times a week Patient Tobacco Use Status: Never used Tobacco e-Cigarette/Vaping Use: Never Used service: No Current occupational status: employed Cognitive needs: No Hearing needs: No Vision needs: No Questionnaire PHQ-9 Over the last 2 weeks, how often have you been bothered by any of the following problems? 1. Little interest or pleasure in doing things: not at all 2. Feeling down, depressed, or hopeless: not at all 3. Trouble falling or staying asleep, or sleeping too much: not at all 4. Feeling tired or having little energy: not at all 5. Poor appetite or overeating: not at all 6. Feeling bad about yourself - or that you are a failure or have let yourself or your family down: not at all 7. Trouble concentrating on things, such as reading the newspaper or watching television: not at all 8. Moving or speaking so slowly that other people could have noticed. Or the opposite - being so fidgety or restless that you have been moving around a lot more than usual: not at all 9. Thoughts that you would be better off or of hurting yourself in some way: not at all Total score: 0 Depression Screening Interpretation: Negative Depression Screening Done: Yes 50202 - PHQ-9 Billing: Yes Source: Developed by Drs. Rick Fuller, Jasmin Berger, Jaiden Hudson and colleagues, with an educational jason from [employer]. Thrive Questionnaire Date Thrive assessed: 03/17/24 I am a: Patient What is your living situation today?: I have a steady place to live Within the past 12 months, did the food you bought not last and you didn't have the money to get more?: Often true Within the past 12 months, did you worry whether your food would run out before you got money to buy more?: Never true Do you have trouble paying for medicines?: No Do you have trouble getting transportation to medical appointments?: No Do you have trouble paying your heating and electricity bill?: No Do you have trouble taking care of your child, family member or friend?: No Do you have trouble with day-to-day activities such as bathing, preparing meals, shopping, managing finances, etc.?: No Are you currently unemployed and looking for a job?: No Are you interested in more education?: No Please select the resources that you would like help with: None Currently or been in a relationship where the following occur: No concerns reported THRIVE Score: 1 AUDIT C Alcohol Use Questionnaire (AUDIT-C) 1. How often do you have a drink containing alcohol?: 2-4 times a month 2. How many drinks containing alcohol do you have on a typical day when you are drinking?: 3 or 4 3. How often do you have six or more drinks on one occasion?: Less than monthly Total Score: 4 Score Reviewed/Action Taken: Yes OTILIA-7 AMB Questionnaire OTILIA-7 Date OTILIA - 7 assessed: 03/17/24 Feeling nervous, anxious, or on edge: 0 = Not at all Not being able to stop or control worryin = Not at all Worrying too much about different things: 0 = Not at all Trouble relaxin = Not at all Being so restless that it is hard to sit still: 0 = Not at all Becoming easily annoyed or irritable: 0 = Not at all Feeling afraid as if something awful might happen: 0 = Not at all Total OTILIA-7 score (0-4 normal; 5-9 mild; 10-14 moderate; 15-21 severe): 0 Source: Developed by Drs. Rick Fuller, Jasmin Berger, Jaiden Hudson and colleagues, with an educational jason from [employer]. Review of Systems Const Denies chills, Denies fatigue, Denies fever(s), Denies headache(s), Denies malaise and Denies weakness Eyes Denies blurry vision, Denies change in vision, Denies irritation and Denies itchy eyes ENT Denies dysphagia, Denies dizziness, Denies otalgia, Denies headache(s), Reports nasal congestion (mild), Denies neck pain, Denies odynophagia and Denies sore throat Card Denies chest pain, Denies rapid heart rate, Denies irregular heart rhythm, Denies palpitations and Denies dyspnea Resp Denies chest congestion, Reports cough (on and off, non-productive), Denies dyspnea and Denies wheezing GI Denies abdominal pain, Denies bloating, Denies constipation, Denies dysphagia, Denies heartburn, Denies diarrhea, Denies nausea, Denies odynophagia and Denies vomiting Denies hematuria, Denies difficulty urinating, Denies dysuria, Denies urinary frequency and Denies urinary urgency Musc Denies back pain, Denies arthralgias, Denies joint swelling, Denies muscle weakness and Denies neck pain Skin/Breast Denies change in pigmentation, Denies lesions, Denies rash and Denies unusual bruising Neuro Denies dizziness, Denies headache(s), Denies paresthesias and Denies weakness Endo Denies fatigue and Denies palpitations Aller/Immun Denies itchy eyes and Denies wheezing Physical exam (Primary Care) Vital Signs: Last Vital Signs Pulse 77 03/17/24 17:14 BP 136/84 03/17/24 17:14 Pulse Ox 97 03/17/24 17:14 Oxygen Delivery Method Room Air 03/17/24 17:14 BMI result Body Mass Index 44.5 Tobacco/Smoking Status: Tobacco use Status Tobacco use date assessed 03/17/24 03/17/24 17:22 Patient Tobacco Use Status Never used Tobacco 03/17/24 17:22 e-Cigarette/Vaping Use Never Used 03/17/24 17:22 PHQ-9: PHQ-9 Score PHQ-9: Total score 0 03/17/24 17:45 Depression Screening Interpretation: Negative Thrive Assessment: Date of Thrive Assessment Date Thrive assessed 03/17/24 03/17/24 17:22 Currently or been in a relationship where the following occur: No concerns reported Const General: no acute distress, alert and awake Orientation/consciousness: [facility]: Yes normocephalic and Yes atraumatic Ears: external ears normal, TM's normal bilaterally and EAC's normal General nose exam: No nasal discharge present Face and sinus: Yes normal facial exam and Yes sinuses nontender Teeth and gingiva: dentition normal Throat: Yes posterior oropharynx normal and Yes tonsils normal (no TP congestion) Eyes Eyelids: Yes eyelids normal Conjunctivae: conjunctivae normal Pupils: Equal, round and reactive pupils present EOM: EOMs intact bilaterally Neck Neck: Yes no lymphadenopathy and Yes supple Thyroid: Thyroid normal Resp Auscultation: clear to auscultation bilaterally, no rales, rhonchi (occasional) throughout and no wheezes Cardio Rate: regular rate Rhythm: regular rhythm Heart sounds: no murmurs GI Palpation (GI): Soft to palpation, nontender and No hepatosplenomegaly present Auscultation: normal bowel sounds General: Yes no CVA tenderness Back/Spine/Pelvis Back: no CVA tenderness Thoracic/Lumbar Spine: thoracic and lumbar spine normal to inspection Skin Lesions: no lesions Rashes: no rashes Neuro General: patient oriented x3, moves all extremities, no focal motor deficits and CN's II-XI intact bilaterally Cranial nerves: Yes Equal, round and reactive pupils present Cognition (Neuro): normal cognition Gait exam (Neuro): Normal gait present Extrem General: Yes no clubbing, cyanosis or edema Coding Level of Care Code Est Pt Prev Care 40-64y(59212) Diagnoses Annual physical exam Z00.00 Essential hypertension I10 Mild intermittent asthma without complication J45.20 Asthma severity: mild Asthma persistence: intermittent Asthma complication type: uncomplicated Allergic rhinitis, unspecified seasonality, unspecified trigger J30.9 Allergic rhinitis trigger: unspecified Allergic rhinitis seasonality: unspecified Migraine equivalent syndrome G43.109 Obstructive sleep apnea G47.33 Morbid obesity with BMI of 40.0-44.9, adult E66.01; Z68.41 Assessment & Plan Assessment & Plan (1) Annual physical exam: Code(s): Z00.00 - Encounter for general adult medical examination without abnormal findings Category: Medical Plan: Check labs He is due for his repeat colonoscopy and will be contacting Dr. Frances' office to schedule his appointment [facility] (2) Essential hypertension: Code(s): I10 - Essential (primary) hypertension Category: Medical Plan: Reinforced low sodium diet - goal is systolic BP of 120 mm or less and diastolic BP of 85 mm or less Have offered to start him on BP meds in the past but he declined - states that he would like to work on trying to lose weight first and if that is not enough to get his BP to goal, then he will agree to start taking Rx His BP today appears slightly better as he has been able to lose some weight since his last visit Patient is reminded to continue monitoring his blood pressure regularly (3) Asthma: Code(s): J45.909 - Unspecified asthma, uncomplicated Category: Medical Qualifiers: Asthma severity: mild Asthma persistence: intermittent Asthma complication type: uncomplicated Qualified Code(s): J45.20 - Mild intermittent asthma, uncomplicated Plan: Stable/controlled Continue Montelukast 10 mg Q PM and Albuterol HFA 1 to 2 inhalations Q 6 hours only as needed (4) Allergic rhinitis: Code(s): J30.9 - Allergic rhinitis, unspecified Category: Medical Qualifiers: Allergic rhinitis trigger: unspecified Allergic rhinitis seasonality: unspecified Qualified Code(s): J30.9 - Allergic rhinitis, unspecified Plan: Continue Montelukast 10 mg Q PM He can also take OTC Claritin (Loratadine) 10 mg QD or Cetirizine 10 mg QD if needed He was getting allergy injections from Dr. Gamboa in the past but has not gotten any shots in the past few years (5) Migraine equivalent syndrome: Code(s): G43.109 - Migraine with aura, not intractable, without status migrainosus Category: Medical Plan: Patient states that his migraine has been stable/controlled and has not been bothering him lately; he does not need anything for headaches at this time He has seen neurology in the past but has not been back for follow up in a few years (6) Obstructive sleep apnea: Code(s): G47.33 - Obstructive sleep apnea (adult) (pediatric) Category: Medical Plan: Continue using his CPAP device when sleeping at night daily Feels that his CPAP therapy has helped him a lot as he feels more alert during the day (7) Morbid obesity with BMI of 40.0-44.9, adult: Code(s): E66.01 - Morbid (severe) obesity due to excess calories; Z68.41 - Body mass index [BMI] 40.0-44.9, adult Category: Medical Plan: Reinforced diet/exercise as tolerated/lose weight Plan Follow up in 6 months
== END 2024-03-17 17:48 | disposition home or self-care (01) ==
PROVIDERS: PCP Internal Medicine; Visit Provider Internal Medicine
DX: Z00.00 Encounter for general adult medical examination without abnormal findings (principal); I10 Essential (primary) hypertension; E66.813 Obesity, class 3; Z68.41 Body mass index [BMI] 40.0-44.9, adult; J45.20 Mild intermittent asthma, uncomplicated; J30.9 Allergic rhinitis, unspecified; G43.109 Migraine with aura, not intractable, without status migrainosus; G47.33 Obstructive sleep apnea (adult) (pediatric)

== ENCOUNTER → 2024-03-17 17:09 | Outpatient (BNVA) | payer BC, SELFPAY | PROVIDERS: PCP Internal Medicine; Visit Provider Internal Medicine ==

== ENCOUNTER 2024-04-09 14:30 | Outpatient (AMB) | payer BC, SELFPAY ==
[2024-04-09 14:35] VITALS: BMI 44.3
--- NOTE | 2024-04-09 14:35 | A.OFFVIS_ITS ---
VS Expanded 04/09/24 14:35 Height 5 ft 4.3 in Weight 260 lb 9.382 oz BMI 44.3 Intake Visit Reasons: Obesity Allergies animal dander Allergy (Unknown, Verified 03/17/24 17:40) WHEEZING banana Allergy (Unknown, Verified 03/17/24 17:40) ITCHY THROAT, WHEEZING cranberry [Cranberry] Allergy (Unknown, Verified 03/17/24 17:40) WHEEZING latex Allergy (Unknown, Verified 03/17/24 17:40) WHEEZY penicillin V Allergy (Unknown, Verified 03/17/24 17:40) hives Penicillins Allergy (Unknown, Verified 03/17/24 17:40) UNKNOWN ENVIRONMENTAL Allergy (Unknown, Uncoded 03/17/24 17:40) WHEEZING SEASONAL ALLERGIES Allergy (Unknown, Uncoded 03/17/24 17:40) WHEEZING Nutrition Presentation Details: Pt presents for MNT f/u for obesity Pt reports walking 2 times /wk and continue to work on reducing on empty calories beverages. BS Monitoring Most Recent Diabetes Results: Cholesterol 153 mg/dL (<200) 03/14/23 HDL Cholesterol 48 mg/dL (>40) 03/14/23 Triglycerides 119 mg/dL (<150) 03/14/23 Creatinine 0.87 mg/dL (0.5-1.4) 03/14/23 Blood Urea Nitrogen 21 mg/dL (9-16) H 03/14/23 Sodium 141 mmol/L (135-145) 03/14/23 Potassium 4.2 mmol/L (3.3-5.1) 03/14/23 Chloride 108 mmol/L (96-108) 03/14/23 Carbon Dioxide 22 mmol/L (22-29) 03/14/23 Calcium 9.5 mg/dL (8.4-10.2) 03/14/23 AST 29 U/L (5-37) 03/14/23 ALT 42 U/L (0-40) H 03/14/23 Total Protein 6.9 g/dL (6.5-8.0) 03/14/23 Albumin 4.1 g/dL (3.5-5.0) 03/14/23 COUNTS INCLUDE 234 BEDS AT THE [facility] Medical History Essential hypertension Obesity (BMI 30-39.9) Obstructive sleep apnea Allergic rhinitis Migraine equivalent syndrome Sinusitis COVID-19 Hernia Asthma Surgical History Status post colonoscopy (~11/13/18) Status post balloon dilatation of esophageal stricture (~05/09/12) Family History Father No problems noted. Mother High blood pressure High cholesterol Cancer COPD (chronic obstructive pulmonary disease) Social History Housing: House Alcohol intake: current Alcohol intake frequency: a few times a week Patient Tobacco Use Status: Never used Tobacco e-Cigarette/Vaping Use: Never Used service: No Current occupational status: employed Cognitive needs: No Hearing needs: No Vision needs: No Assessment & Plan Assessment & Plan (1) Obesity (BMI 30-39.9): Code(s): E66.9 - Obesity, unspecified Category: Medical Plan: Wt: 123 Kg ( 12/2023 ), 121 kg (01/25, 03/27), 118 (kg) 04/27 Est kcal needs as per MSJ: 2400 (40% carb, 30% protein/fat) Est fluid needs as per 25-30 ml/d: 3500 Est prot per day as per 1 g/kg bw: 123 Recommend fiber intake : 8-10 g per day and gradually increase to 25-28 g per day for women and 35-38 g for men or as tolerated Recommend sodium intake per day : less than 2000 mg Educated patient on: ( R = reviewed V = verbalizes understanding N/R = needs review N/A = not applicable * Food sources of carbohydrate, adequate serving sizes and its role in various health conditions: R * Differences between complex carbohydrates a simple carbohydrates, role of fiber in diet: R * Lean protein sources of foods: R V * Differences between types of fats and role in diet (mono on saturated fat fatty acids, saturated fatty acids, trans fats): R * Food sources of sodium in salt and healthy modifications for heart health in kidney health: R * Vitamins and minerals: R * Healthy plate method concept: R * Physical activity: Benefits a precaution: R * empty calorie foods.beverages: R Patient Instructions: increase frequency of walks to 4 times a week Reduce on the empty calorie beverages Increase in water intake , carry with it Be mindful of fats/sweets Coding Level of Care Code Nutr Indiv Subseq (40441) Diagnoses Obesity (BMI 30-39.9) E66.9 Time Spent (min) 20
== END 2024-04-09 14:55 | disposition home or self-care (01) ==
LOC: HO.ENCR 14:30
PROVIDERS: PCP Internal Medicine; Visit Provider Dietitian, Registered
DX: E66.9 Obesity, unspecified (principal)

== ENCOUNTER → 2024-04-09 14:30 | Outpatient (BNVA) | payer BC, SELFPAY | PROVIDERS: PCP Internal Medicine; Visit Provider Dietitian, Registered | DX: E66.9 Obesity, unspecified (principal); Z68.41 Body mass index [BMI] 40.0-44.9, adult; Z71.3 Dietary counseling and surveillance | CPT/HCPCS: 97803 ==

== ENCOUNTER 2024-05-13 14:36 | Outpatient (AMB) | payer BC, SELFPAY ==
--- NOTE | 2024-05-13 14:48 | A.OFFVIS_ITS ---
VS Expanded 05/13/24 14:49 Height 5 ft 4.3 in Weight 269 lb 2.951 oz BMI 45.8 Intake Visit Reasons: Obesity/Confirmed-k.h Allergies animal dander Allergy (Unknown, Verified 03/17/24 17:40) WHEEZING banana Allergy (Unknown, Verified 03/17/24 17:40) ITCHY THROAT, WHEEZING cranberry [Cranberry] Allergy (Unknown, Verified 03/17/24 17:40) WHEEZING latex Allergy (Unknown, Verified 03/17/24 17:40) WHEEZY penicillin V Allergy (Unknown, Verified 03/17/24 17:40) hives Penicillins Allergy (Unknown, Verified 03/17/24 17:40) UNKNOWN ENVIRONMENTAL Allergy (Unknown, Uncoded 03/17/24 17:40) WHEEZING SEASONAL ALLERGIES Allergy (Unknown, Uncoded 03/17/24 17:40) WHEEZING Nutrition Presentation Details: Pt presents for MNT f/u for obesity Pt reports increasing food portions BS Monitoring Most Recent Diabetes Results: No Data to Display [facility] Medical History Essential hypertension Obesity (BMI 30-39.9) Obstructive sleep apnea Allergic rhinitis Migraine equivalent syndrome Sinusitis COVID-19 Hernia Asthma Surgical History Status post colonoscopy (~11/13/18) Status post balloon dilatation of esophageal stricture (~05/09/12) Family History Father No problems noted. Mother High blood pressure High cholesterol Cancer COPD (chronic obstructive pulmonary disease) Social History Housing: House Alcohol intake: current Alcohol intake frequency: a few times a week Patient Tobacco Use Status: Never used Tobacco e-Cigarette/Vaping Use: Never Used service: No Current occupational status: employed Cognitive needs: No Hearing needs: No Vision needs: No Assessment & Plan Assessment & Plan (1) Obesity (BMI 30-39.9): Code(s): E66.9 - Obesity, unspecified Category: Medical Plan: Wt: 123 Kg ( 12/2023 ), 121 kg (01/25, 03/27), 118 (kg) 04/27, 122 kg (05/27) Est kcal needs as per MSJ: 2400 (40% carb, 30% protein/fat) Est fluid needs as per 25-30 ml/d: 3500 Est prot per day as per 1 g/kg bw: 123 Recommend fiber intake : 8-10 g per day and gradually increase to 25-28 g per day for women and 35-38 g for men or as tolerated Recommend sodium intake per day : less than 2000 mg Educated patient on: ( R = reviewed V = verbalizes understanding N/R = needs review N/A = not applicable * Food sources of carbohydrate, adequate serving sizes and its role in various health conditions: R * Differences between complex carbohydrates a simple carbohydrates, role of fiber in diet: R * Lean protein sources of foods: R V * Differences between types of fats and role in diet (mono on saturated fat fatty acids, saturated fatty acids, trans fats): R * Food sources of sodium in salt and healthy modifications for heart health in kidney health: R * Vitamins and minerals: R * Healthy plate method concept: R * Physical activity: Benefits a precaution: R * empty calorie foods.beverages: R Patient Instructions: Resume meal planning and practicing mindful eating HAve a protein shake once a day as a meal replacement Coding Level of Care Code Nutr Indiv Subseq (46399) Diagnoses Obesity (BMI 30-39.9) E66.9 Time Spent (min) 30
[2024-05-13 14:49] VITALS: BMI 45.8
== END 2024-05-13 15:05 | disposition home or self-care (01) ==
PROVIDERS: PCP Internal Medicine; Visit Provider Dietitian, Registered
DX: E66.9 Obesity, unspecified (principal)

== ENCOUNTER → 2024-05-13 14:36 | Outpatient (BNVA) | payer BC, SELFPAY | PROVIDERS: PCP Internal Medicine; Visit Provider Dietitian, Registered | DX: E66.9 Obesity, unspecified (principal); Z68.42 Body mass index [BMI] 45.0-49.9, adult; Z71.3 Dietary counseling and surveillance | CPT/HCPCS: 97803 ==

== ENCOUNTER 2024-05-16 07:46 | Outpatient (REF) | payer BC, SELFPAY ==
[2024-05-16 10:25] LABS: MANUAL DIFF FLAG NO
[2024-05-16 10:28] LABS: Appearance Urine Turbid; Color Urine Dark Yellow; Glucose Urine UA Negative (Negative); Leukocyte Esterase Urine Negative (Negative); Nitrite Urine Negative (Negative); Specific Gravity - Urine 1.025 (1.005-1.025); Urine Blood Negative (Negative); Urine Ketones Negative (Negative); Urine Protein Negative (Neg-Trace)
[2024-05-16 10:31] LABS: Basophils Absolute Auto 0.1 X10*3/uL (0.0-0.2); Basophils Percent Auto 0.7 % (0-2); Eosinophils Absolute Auto 0.5 X10*3/uL (0.0-0.4); Eosinophils Percent Auto 7.1 % (0-4); Hematocrit 42.4 % (42.0-52.0); Imm Gran Abs Auto 0.01 X10*3/uL (0.00-0.03); Imm Gran Pct Auto 0.1 % (0.0-0.4); Lymphocytes Absolute Auto 1.4 X10*3/uL (1.2-4.9); Lymphocytes Percent Auto 20.1 % (20-40); Mean Corpuscular HGB Conc 35.4 g/dl (31.0-36.0); Mean Corpuscular Volume 90.4 fL (80.0-98.0); Mean Platelet Volume 9.9 fL (9.4-12.4); Monocytes Absolute Auto 0.7 X10*3/uL (0.1-1.2); Neutrophils Absolute Auto 4.2 x10*3/uL (2.0-8.3); Platelet Count 196 X10*3/uL (160-400); Red Blood Count 4.69 X10*6/uL (4.60-5.80); Red Cell Distribution Width 12.3 % (11.0-16.0); White Blood Count 6.8 X10*3/uL (4.8-10.8)
[2024-05-16 11:02] LABS: Alanine Aminotransferase 57 U/L (0-40); Alkaline Phosphatase 52 U/L (39-117); Anion Gap 8 (12-20); Aspartate Amino Transferase 36 U/L (5-37); Bilirubin Total 0.9 mg/dL (0.0-1.0); Blood Urea Nitrogen 22 mg/dL (9-16); Calcium 9.3 mg/dL (8.4-10.2); Carbon Dioxide 27 mmol/L (22-29); Chloride 109 mmol/L (96-108); Cholesterol 143 mg/dL (<200); Estimated Glomerular Filt Rate > 60; Glucose Fasting 119 mg/dL (60-99); HDL Cholesterol 47 mg/dL (>40); LDL Cholesterol Calculated 73 mg/dL (<100); Potassium 4.4 mmol/L (3.3-5.1); Sodium 140 mmol/L (135-145); Total Protein 6.9 g/dL (6.5-8.0); Triglycerides 116 mg/dL (<150)
[2024-05-16 11:03] LABS: TSH reflex Free T4 1.33 uIU/mL (0.32-4.0); Vitamin D 25-OH Total 33.9 ng/mL (>30)
[2024-05-16 11:04] LABS: Prostate Specific Antigen Scr 2.82 ng/mL (<0.05-4.0)
== END 2024-05-16 07:47 | disposition home or self-care (01) ==
LOC: HO.10HDL 07:46
PROVIDERS: Visit Provider Internal Medicine
DX: Z00.00 Encounter for general adult medical examination without abnormal findings (principal); Z12.5 Encounter for screening for malignant neoplasm of prostate; E78.00 Pure hypercholesterolemia, unspecified; R30.0 Dysuria; E55.9 Vitamin D deficiency, unspecified; D64.9 Anemia, unspecified
CPT/HCPCS: 36415; 80053; 80061; 81003; 82306; 84153; 84443; 85025

== ENCOUNTER 2024-08-05 13:23 | Emergency (ER) | payer BC, SELFPAY ==
--- NOTE | ~2024-08-05 | CT_ITS ---
CLINICAL HISTORY: migraine, change in pattern and frequency CT head without contrast Comparison: CT/SR - BRAIN WO IV CONTRAST [id number] - 08/10/18 17:31 EST Findings: No intra-axial mass, midline shift, hydrocephalus, or acute hemorrhage. No significant atrophy-like change or white matter disease. The visualized paranasal sinuses and mastoid air cells are normal. The orbits are within normal limits. There is no acute fracture. IMPRESSION: 1. No acute intracranial findings. This document has been electronically signed by: Jose A Murphy MD, PHD on 08/06/2024 02:09:05
[2024-08-05 14:10] VITALS: BP 169/104; PULSE 108; RESP 16; TEMP 37; O2SAT 98; BMI 44.8
--- NOTE | 2024-08-05 14:18 | ED_ITS ---
HPI - Headache General Chief Complaint: Headache Stated Complaint: Migraine Time Seen by Provider: 08/05/24 23:55 Source: patient Mode of arrival: ambulatory Limitations: no limitations History of Present Illness ED Provider: Noelle Arriaga NP HPI Narrative: Patient is a 54-year-old male who presents emergency department for evaluation. He endorses a history of migraine headaches, recently has noticed an increase in the frequency of occurrence. He states that previously he would experience 1 very infrequently every a few years or so. Over the past few weeks he has had head least 2 or 3 a week, overall has a feeling that it has never completely gone away either. Primarily right sided temporoparietal region. endorses associated aura including vision changes/blurred vision and feeling ?out of it and disconnected? prior to headache onset. States his primary care doctor has referred him to Neurology but does not have an appointment until November of this year. Denies any red flag symptoms including fevers, chills, neck stiffness, malaise, aphasia, weakness, poor coordination, descriptors such as ?the worst headache ever ?or ?thunderclap?, or painful temporal region. Denies dizziness, lightheadedness, vision changes, URI symptoms, chest pain, shortness of breath, numbness or tingling of the extremities. Related Data Previous Rx's ?Medication ?Instructions ?Recorded colchicine 0.6 mg tablet 0.3 mg (1/2 x 0.6 mg) PO DAILY 5 06/06/23 days #3 tabs CPAP SUPPLIES (MASK, FILTERS, #1 ea 06/29/23 HOSES and HEADGEAR) CPAP device #1 ea 06/29/23 albuterol sulfate 90 mcg/actuation 2 puff inhalation Q6H PRN for 12/04/23 aerosol inhaler wheezing #8.5 ea montelukast 10 mg tablet 10 mg PO QPM #90 tabs 02/29/24 azithromycin 250 mg tablet See Rx Instructions PO .COMPLEX #6 07/30/24 tabs Allergies Allergy/AdvReac Type Severity Reaction Status Date / Time animal dander Allergy Unknown WHEEZING Verified 08/05/24 14:14 banana Allergy Unknown ITCHY Verified 08/05/24 14:14 THROAT, WHEEZING cranberry [Cranberry] Allergy Unknown WHEEZING Verified 08/05/24 14:14 latex Allergy Unknown WHEEZY Verified 08/05/24 14:14 penicillin V Allergy Unknown hives Verified 08/05/24 14:14 Penicillins Allergy Unknown UNKNOWN Verified 08/05/24 14:14 ENVIRONMENTAL Allergy Unknown WHEEZING Uncoded 03/17/24 17:40 SEASONAL ALLERGIES Allergy Unknown WHEEZING Uncoded 03/17/24 17:40 Review of Systems 2 Review of Systems: Yes all other systems are reviewed and are negative PMFSH Past Medical History Attestation statement: The following information was validated with the patient. Source: old records reviewed Medical History Essential hypertension Obesity (BMI 30-39.9) Obstructive sleep apnea Allergic rhinitis Migraine equivalent syndrome Sinusitis COVID-19 Hernia Asthma Surgical History Status post colonoscopy (~11/13/18) Status post balloon dilatation of esophageal stricture (~05/09/12) Family History Family History Father No problems noted. Mother High blood pressure High cholesterol Cancer COPD (chronic obstructive pulmonary disease) Social History Social History Housing: House Alcohol intake: current Alcohol intake frequency: does not drink Patient Tobacco Use Status: Never used Tobacco Smoked in Last 30 Days: No e-Cigarette/Vaping Use: Never Used Use of substances other than those prescribed or required for medical reasons: No Advance Directives: No Advance Directives Information Provided: Yes service: No Current occupational status: employed Cognitive needs: No Hearing needs: No Vision needs: No Physical Exam 2 Vital Signs: Vital Signs: Last Vital Signs Temp 97.6 F 08/06/24 02:23 Pulse 74 08/06/24 02:23 Resp 16 08/06/24 02:23 BP 160/88 H 08/06/24 02:23 Pulse Ox 98 08/06/24 02:23 O2 Del Method Room Air 08/06/24 02:23 BMI result Body Mass Index 44.8 Appearance: Alert.?Oriented to person, place and time. No acute distress.?Normal affect. Head: Normocephalic, atraumatic Eyes: Pupils equal, round and reactive to light. EOMI. No nystagmus. No ptosis. No tenderness to palpation over the temporal region. ENT: External auditory canal normal tympanic membrane pearly seymour and intact bilaterally. Oropharynx normal. Neck: Normal inspection.? Neck supple. No nuchal rigidity. CVS: Heart sounds normal. Normal heart rate and rhythm.? Pulses normal.?? Respiratory: No respiratory distress.? Lung sounds clear to auscultation bilaterally?? Abdomen: Soft and non-tender. Normoactive bowel sounds. ?? Skin: Skin warm and dry.? Normal skin color.? ?? Extremities: No lower extremity edema.? Neuro: Moves all extremities spontaneously. Sensation intact bilaterally. CN II- XII intact. No focal neuro deficits. Ambulatory with steady gait. Course Course Course Narrative: This is an RME: Additional HPI, ROS, PE not included below will be deferred to primary provider. RME assessment and note performed by: Marisol Torres PA-C this is a 54-year-old male, with a history of migraines, who presents emergency department with complaints of increased frequency of migraines. Patient reports pain is primarily behind his right eye. He states that he was seen by his primary care physician, who wants him to see neuro however will take until November for the referral. he is neurologically intact. Plan; viral swabs, labs, CT head Reevaluation(s) Reevaluation #1: Patient with a history of recurrent and or similar headache, there is no substantial change to typical headache pattern, there are no red flag symptoms, no focal neurological deficits, no high risk comorbidities, at this time feel that patient is stable for discharge home Medical Decision Making Medical Decision Making MDM Narrative: Patient is a 54-year-old male with past medical history of hypertension, IRWIN, allergic rhinitis, migraine, hernia, asthma who presents emergency department for evaluation of migraines as per HPI. Given his age, and change in frequency abruptly over the past 3 weeks, will obtain head CT to exclude intracranial mass/lesion, lower suspicion for ICH, SDH, infarct. He has no focal neurological deficits on examination. He was noted to have elevated blood pressure reading on arrival 169/104, subsequently 179/102, has history of hypertension, not currently on antihypertensives has declined them from his PCP prior, citing that he wanted to attempt weight loss first. On reassessment it is 160/88, not consistent with hypertensive crisis. Differential Diagnosis Differential Diagnoses: The differential diagnosis associated with the presentation includes (SDH, SAH, ICH, CONSULTING SENIOR PRACTICE DIRECTOR mass, meningitis, encephalitis, CVA, GCA, migraine, headache) Admission/Observation Consideration of admission/observation: Escalation of care including admission/observation considered Lab Data MDM Lab Attestation statement: I reviewed the patient's lab results. CBC is without leukocytosis, anemia, thrombocytopenia. No electrolyte derangement. No RAN. LFTs overall unremarkable. Viral serologies are negative. 08/05/24 15:00 08/05/24 15:00 Labs: Lab Results 08/05/24 Range/Units 15:00 WBC 8.2 (4.8-10.8) X10*3/uL RBC 4.74 (4.60-5.80) X10*6/uL Hgb 15.0 (14.0-18.0) g/dl Hct 42.3 (42.0-52.0) % MCV 89.2 (80.0-98.0) fL MCH 31.6 (27.0-33.0) pg MCHC 35.5 (31.0-36.0) g/dl RDW 12.5 (11.0-16.0) % Plt Count 206 (160-400) X10*3/uL MPV 9.7 (9.4-12.4) fL Immature Gran % (Auto) 0.4 (0.0-0.4) % Neut % (Auto) 67.0 (45-73) % Lymph % (Auto) 20.7 (20-40) % [place] % (Auto) 8.2 (2-11) % Eos % (Auto) 3.1 (0-4) % Baso % (Auto) 0.6 (0-2) % Lymph # (Auto) 1.7 (1.2-4.9) X10*3/uL [place] # (Auto) 0.7 (0.1-1.2) X10*3/uL Eos # (Auto) 0.3 (0.0-0.4) X10*3/uL Baso # (Auto) 0.1 (0.0-0.2) X10*3/uL Abs Immat Gran (auto) 0.03 (0.00-0.03) X10*3/uL Absolute Neuts (auto) 5.5 (2.0-8.3) x10*3/uL Absolute Nucleated RBC 0.000 (0.0-0.012) X10*3/uL Nucleated RBC % (auto) 0.0 (0.0-0.2) /100WBC Sodium 141 (135-145) mmol/L Potassium 4.1 (3.3-5.1) mmol/L Chloride 105 (96-108) mmol/L Carbon Dioxide 28 (22-29) mmol/L Anion Gap 12 (12-20) BUN 21 H (9-16) mg/dL Creatinine 1.29 (0.5-1.4) mg/dL Estim Creat Clear Calc 77.5 Estimated GFR 58 Random Glucose 106 (60-115) mg/dL Calcium 9.9 D (8.4-10.2) mg/dL Total Bilirubin 0.6 (0.0-1.0) mg/dL AST 37 (5-37) U/L ALT 49 H (0-40) U/L Alkaline Phosphatase 58 (39-117) U/L Total Protein 7.4 (6.5-8.0) g/dL Albumin 4.1 (3.5-5.0) g/dL Influenza Type A (PCR) NEGATIVE (Negative) Influenza Type B (PCR) NEGATIVE (Negative) RSV RNA Qual (PCR) NEGATIVE (Negative) SARS-CoV-2 RNA (RT-PCR) NEGATIVE (Negative) Radiology Impression Discussion of test interpretation with radiology: I have reviewed the radiologist's reading. External Record Review External record reviewed: Outpatient record Chronic Conditions Patient?s care impacted by: Other (See narrative above) Discharge Plan Discharge Clinical Impression: Migraine Patient Disposition: Home, Self-Care Instructions: Migraine Headache (ED) Additional Instructions: Head CT was normal without any acute findings. This is reassuring. Follow-up with your primary care doctor in the interim while we were awaiting evaluation from Neurology in regard to the change in frequency of your migraine headaches. You may return to emergency department any new or worsening symptoms or concerns. Prescriptions: No Action colchicine 0.6 mg tablet 0.3 mg PO DAILY 5 Days Qty: 3 0RF (DME) CPAP device See Rx Instructions .Route .MEDSUPPLY Qty: 1 0RF Rx Instructions: As directed (DME) CPAP SUPPLIES (MASK, FILTERS, HOSES and HEADGEAR) See Rx Instructions .Route .MEDSUPPLY Qty: 1 0RF Rx Instructions: As directed albuterol sulfate 90 mcg/actuation HFA aerosol inhaler 2 puff inhalation Q6H PRN (Reason: for wheezing) Qty: 8.5 3RF montelukast 10 mg tablet 10 mg PO QPM Qty: 90 1RF azithromycin 250 mg tablet See Rx Instructions PO .COMPLEX Qty: 6 0RF Rx Instructions: take 500 mg today (day 1), then 250 mg for 4 days (days 2-5) PO Referrals: Nishant Marvin MD [Primary Care Provider] - Interventions: ED Discharge Assessment Last Done: 08/06/24 02:23 Discharge Date/Time: 08/06/24 02:23 Print Language: Welsh
[2024-08-05 15:05] LABS: MANUAL DIFF FLAG NO
[2024-08-05 15:07] LABS: Basophils Absolute Auto 0.1 X10*3/uL (0.0-0.2); Basophils Percent Auto 0.6 % (0-2); Eosinophils Absolute Auto 0.3 X10*3/uL (0.0-0.4); Eosinophils Percent Auto 3.1 % (0-4); Hematocrit 42.3 % (42.0-52.0); Imm Gran Abs Auto 0.03 X10*3/uL (0.00-0.03); Imm Gran Pct Auto 0.4 % (0.0-0.4); Lymphocytes Absolute Auto 1.7 X10*3/uL (1.2-4.9); Lymphocytes Percent Auto 20.7 % (20-40); Mean Corpuscular HGB Conc 35.5 g/dl (31.0-36.0); Mean Corpuscular Hemoglobin 31.6 pg (27.0-33.0); Mean Corpuscular Volume 89.2 fL (80.0-98.0); Mean Platelet Volume 9.7 fL (9.4-12.4); Monocytes Absolute Auto 0.7 X10*3/uL (0.1-1.2); Monocytes Percent Auto 8.2 % (2-11); Neutrophils Absolute Auto 5.5 x10*3/uL (2.0-8.3); Platelet Count 206 X10*3/uL (160-400); Red Blood Count 4.74 X10*6/uL (4.60-5.80); Red Cell Distribution Width 12.5 % (11.0-16.0); White Blood Count 8.2 X10*3/uL (4.8-10.8)
[2024-08-05 15:26] LABS: Alanine Aminotransferase 49 U/L (0-40); Albumin Level 4.1 g/dL (3.5-5.0); Anion Gap 12 (12-20); Aspartate Amino Transferase 37 U/L (5-37); Bilirubin Total 0.6 mg/dL (0.0-1.0); Blood Urea Nitrogen 21 mg/dL (9-16); Calcium 9.9 mg/dL (8.4-10.2); Carbon Dioxide 28 mmol/L (22-29); Chloride 105 mmol/L (96-108); Creatinine Clr Calc Pharmacy 77.5; Estimated Glomerular Filt Rate 58; Glucose Random 106 mg/dL (60-115); Potassium 4.1 mmol/L (3.3-5.1); Sodium 141 mmol/L (135-145); Total Protein 7.4 g/dL (6.5-8.0)
[2024-08-05 15:46] LABS: Influenza A PCR NEGATIVE (Negative); Influenza B PCR NEGATIVE (Negative); Resp Syncy Virus RNA Qual PCR NEGATIVE (Negative); SARS COV2 PCR INHOUSE NEGATIVE (Negative)
[2024-08-05 17:45] LABS: Alkaline Phosphatase 58 U/L (39-117)
[2024-08-05 21:30] VITALS: BP 179/102; PULSE 79; RESP 18; TEMP 37.2; O2SAT 96
[2024-08-06 00:55] VITALS: BP 160/88; PULSE 74; RESP 16; O2SAT 98
--- NOTE | 2024-08-06 01:23 | PC.NURSE ---
Provider into discuss plan of care. pt awaiting CT Scan
--- NOTE | 2024-08-06 02:18 | PC.NURSE ---
provider into discuss CT-scan results, will review discharge instructions with pt.
--- NOTE | 2024-08-06 02:22 | PC.NURSE ---
reviewed discharge instructions with pt, pt verbalized understanding, no sign of distress, pt ambulated with a steady gait upon discharge.
[2024-08-06 02:23] VITALS: BP 160/88; PULSE 74; RESP 16; TEMP 36.4; O2SAT 98
== END 2024-08-06 02:23 | disposition home or self-care (01) ==
PROVIDERS: Physician Assistant Medical; Emergency Provider Emergency Medicine Emergency Medical Services; PCP Internal Medicine
DX: G43.909 Migraine, unspecified, not intractable, without status migrainosus (principal); I10 Essential (primary) hypertension; J45.909 Unspecified asthma, uncomplicated; Z03.818 Encounter for observation for suspected exposure to other biological agents ruled out
CPT/HCPCS: 0241U; 36415; 70450; 80053; 85025; 99284

== ENCOUNTER → 2024-08-06 00:46 | Outpatient (BNV) | payer BC, SELFPAY | PROVIDERS: Emergency Provider Emergency Medicine Emergency Medical Services; PCP Internal Medicine; Visit Provider General Practice | DX: G44.52 New daily persistent headache (NDPH) (principal) | CPT/HCPCS: 70450 ==

== ENCOUNTER 2024-09-08 16:56 | Outpatient (AMB) | payer BC, SELFPAY ==
[2024-09-08 17:04] VITALS: BP 162/104; PULSE 98; O2SAT 97; BMI 44.6
--- NOTE | 2024-09-08 17:04 | A.OFFPC_ITS ---
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 Required: No Accompanied by: Self / Same As Patient Allergies animal dander Allergy (Unknown, Verified 09/08/24 17:17) WHEEZING banana Allergy (Unknown, Verified 09/08/24 17:17) ITCHY THROAT, WHEEZING cranberry [Cranberry] Allergy (Unknown, Verified 09/08/24 17:17) WHEEZING latex Allergy (Unknown, Verified 09/08/24 17:17) WHEEZY penicillin V Allergy (Unknown, Verified 09/08/24 17:17) hives Penicillins Allergy (Unknown, Verified 09/08/24 17:17) UNKNOWN ENVIRONMENTAL Allergy (Unknown, Uncoded 09/08/24 17:17) WHEEZING SEASONAL ALLERGIES Allergy (Unknown, Uncoded 09/08/24 17:17) WHEEZING Medication List - Last Reconciled 09/08/24 by Nishant Marvin MD albuterol sulfate 90 mcg/actuation 2 puffs inhalation Q6H PRN colchicine 0.3 mg (1/2 x 0.6 mg) PO DAILY 5 days [CPAP device As directed] [CPAP SUPPLIES (MASK, FILTERS, HOSES and HEADGEAR) As directed] montelukast 10 mg PO QPM Tobacco use date assessed: 09/08/24 Dental Screening Dental Screen Date: 09/08/24 Did you have a dental visit in the last 12 months?: Yes Did you have a dental problem in the last 6 months where you did not have access to dental care?: No Was dental information given to patient?: Patient has dentist HPI 6 month f/u HPI Details Patient comes in today for his follow-up visit States that he has been experiencing recurrent headaches for the past month and a half now States that he also notes some visual symptoms which he describes as an aura with blurred vision and he reports feeling ?out of it often prior to his headaches occurring Notes that his headaches/pain is mostly over the right parieto-occipital area of his head He went to the ER last month for the same complaints and was sent for a head CT that came out normal He has been referred to neurology for further evaluation and has an appointment coming up with Dr. Calvert next week States that his sinus infection last month cleared up with the Azithromycin prescription that we called in for him He denies any dizziness Denies any chest pains, no increased shortness of breath No nausea/vomiting, no abdominal pain No change in bowel habits noted [facility] Medical History Essential hypertension Obesity (BMI 30-39.9) Obstructive sleep apnea Allergic rhinitis Migraine equivalent syndrome Sinusitis COVID-19 Hernia Asthma Surgical History Status post colonoscopy (~11/13/18) Status post balloon dilatation of esophageal stricture (~05/09/12) Family History (Updated 09/08/24 @ 17:07 by ISAIAS Kumar) Father Mental health disorder Mother High blood pressure High cholesterol Cancer COPD (chronic obstructive pulmonary disease) Social History Housing: House Alcohol intake: current Alcohol intake frequency: does not drink Patient Tobacco Use Status: Never used Tobacco e-Cigarette/Vaping Use: Never Used Second Hand Smoke Exposure: No service: No Current occupational status: employed Cognitive needs: No Hearing needs: No Vision needs: No Questionnaire PHQ-9 Over the last 2 weeks, how often have you been bothered by any of the following problems? 1. Little interest or pleasure in doing things: not at all 2. Feeling down, depressed, or hopeless: not at all 3. Trouble falling or staying asleep, or sleeping too much: not at all 4. Feeling tired or having little energy: not at all 5. Poor appetite or overeating: not at all 6. Feeling bad about yourself - or that you are a failure or have let yourself or your family down: not at all 7. Trouble concentrating on things, such as reading the newspaper or watching television: not at all 8. Moving or speaking so slowly that other people could have noticed. Or the opposite - being so fidgety or restless that you have been moving around a lot more than usual: not at all 9. Thoughts that you would be better off or of hurting yourself in some way: not at all Total score: 0 Depression Screening Interpretation: Negative Depression Screening Done: Yes 74743 - PHQ-9 Billing: Yes Source: Developed by Drs. Rick Fuller, Jasmin Berger, Jaiden Hudson and colleagues, with an educational jason from [employer]. Thrive Questionnaire Date Thrive assessed: 09/08/24 I am a: Patient What is your living situation today?: I have a steady place to live Within the past 12 months, did the food you bought not last and you didn't have the money to get more?: Often true Within the past 12 months, did you worry whether your food would run out before you got money to buy more?: Never true Do you have trouble paying for medicines?: No Do you have trouble getting transportation to medical appointments?: No Do you have trouble paying your heating and electricity bill?: No Do you have trouble taking care of your child, family member or friend?: No Do you have trouble with day-to-day activities such as bathing, preparing meals, shopping, managing finances, etc.?: No Are you currently unemployed and looking for a job?: No Are you interested in more education?: No Please select the resources that you would like help with: None Currently or been in a relationship where the following occur: No concerns reported THRIVE Score: 1 AUDIT C Alcohol Use Questionnaire (AUDIT-C) 1. How often do you have a drink containing alcohol?: 2-4 times a month 2. How many drinks containing alcohol do you have on a typical day when you are drinking?: 3 or 4 3. How often do you have six or more drinks on one occasion?: Monthly Total Score: 5 Score Reviewed/Action Taken: Yes OTILIA-7 AMB Questionnaire OTILIA-7 Date OTILIA - 7 assessed: 09/08/24 Feeling nervous, anxious, or on edge: 0 = Not at all Not being able to stop or control worryin = Not at all Worrying too much about different things: 0 = Not at all Trouble relaxin = Not at all Being so restless that it is hard to sit still: 0 = Not at all Becoming easily annoyed or irritable: 0 = Not at all Feeling afraid as if something awful might happen: 0 = Not at all Total OTILIA-7 score (0-4 normal; 5-9 mild; 10-14 moderate; 15-21 severe): 0 Source: Developed by Drs. Rick Fuller, Jasmin Berger, Jaiden Hudson and colleagues, with an educational jason from [employer]. Review of Systems Const Denies chills, Denies fatigue, Denies fever(s) and Reports headache(s) (recurrent for the past month or so - see HPI) Eyes Reports as per HPI ENT Denies dysphagia, Denies dizziness, Denies otalgia, Reports headache(s) (recurrent for the past month or so - see HPI), Denies neck pain, Denies odynophagia and Denies sore throat Card Denies chest pain, Denies irregular heart rhythm, Denies palpitations and Denies dyspnea Resp Denies chest congestion, Denies cough and Denies dyspnea GI Denies abdominal pain, Denies constipation, Denies dysphagia, Denies heartburn, Denies diarrhea, Denies nausea, Denies odynophagia and Denies vomiting Denies difficulty urinating, Denies dysuria, Denies nocturia and Denies urinary frequency Musc Denies back pain, Denies arthralgias and Denies neck pain Skin/Breast Denies rash Neuro Denies dizziness, Reports headache(s) (recurrent for the past month or so - see HPI) and Denies paresthesias Endo Denies fatigue and Denies palpitations Physical exam (Primary Care) Vital Signs: Last Vital Signs Pulse 98 09/08/24 17:04 BP 162/104 H 09/08/24 17:04 Pulse Ox 97 09/08/24 17:04 Oxygen Delivery Method Room Air 09/08/24 17:04 BMI result Body Mass Index 44.6 Tobacco/Smoking Status: Tobacco use Status Tobacco use date assessed 09/08/24 09/08/24 17:10 Patient Tobacco Use Status Never used Tobacco 09/08/24 17:10 e-Cigarette/Vaping Use Never Used 09/08/24 17:10 PHQ-9: PHQ-9 Score PHQ-9: Total score 0 09/08/24 17:32 Depression Screening Interpretation: Negative Thrive Assessment: Date of Thrive Assessment Date Thrive assessed 09/08/24 09/08/24 17:10 Currently or been in a relationship where the following occur: No concerns reported Const General: no acute distress and alert Orientation/consciousness: patient oriented x3 HENMT Head: Yes normal to inspection and No scalp tenderness Ears: TM's normal bilaterally and EAC's normal Face and sinus: Yes sinuses nontender Throat: Yes posterior oropharynx normal and Yes tonsils normal (no TP congestion) Neck Neck: Yes supple and No lymphadenopathy Thyroid: Thyroid normal Resp Auscultation: clear to auscultation bilaterally, no rales and no wheezes Cardio Rate: regular rate Rhythm: regular rhythm Heart sounds: no murmurs GI Palpation (GI): Soft to palpation and nontender Auscultation: normal bowel sounds General: Yes no CVA tenderness Back/Spine/Pelvis Back: no CVA tenderness Thoracic/Lumbar Spine: No lumbar spinal tenderness Skin Rashes: no rashes Neuro General: patient oriented x3, moves all extremities, no focal motor deficits and CN's II-XI intact bilaterally Extrem General: Yes no clubbing, cyanosis or edema Results Reviewed Results Reviewed: Laboratory Tests 08/05/24 15:00 WBC 8.2 Hgb 15.0 Hct 42.3 Plt Count 206 Sodium 141 Potassium 4.1 Creatinine 1.29 Estimated GFR 58 Random Glucose 106 Calcium 9.9 D AST 37 ALT 49 H Coding Level of Care Code Est Pt Level 4 (73317) Diagnoses Nonintractable episodic headache, unspecified headache type R51.9 Headache type: unspecified Headache chronicity pattern: episodic headache Intractability: not intractable Essential hypertension I10 Mild intermittent asthma without complication J45.20 Asthma severity: mild Asthma persistence: intermittent Asthma complication type: uncomplicated Allergic rhinitis, unspecified seasonality, unspecified trigger J30.9 Allergic rhinitis trigger: unspecified Allergic rhinitis seasonality: unspecified Obstructive sleep apnea G47.33 Morbid obesity with BMI of 40.0-44.9, adult E66.01; Z68.41 Additional Codes PHQ-9 - 99763 - PHQ-9 Billing: Yes ([id number]) Assessment & Plan Assessment & Plan (1) Headache: Code(s): R51.9 - Headache, unspecified Category: Medical Qualifiers: Headache type: unspecified Headache chronicity pattern: episodic headache Intractability: not intractable Qualified Code(s): R51.9 - Headache, unspecified Plan: These are likely migraine headaches (with aura) - he has (+) Hx of migraine although he states that they have been mostly controlled and have not bothered him for a while until the past 1 to 2 months He went to the ER last week with similar findings and had a head CT done, which came out normal He has been seen by neurology in the past but he has not been back for a follow up visit in a few years He was referred back to neurology recently and has an appointment scheduled to see Dr. Calvert next week We have considered starting him on Sumatriptan today but with his HIGH blood pressure readings lately, will hold off on this for now Have advised patient to try taking some OTC Tylenol instead in the meantime until he is seen by neurology next week and that he will likely need to be started on prophylactic Rx for his headaches as well (2) Essential hypertension: Code(s): I10 - Essential (primary) hypertension Category: Medical Plan: Reinforced low sodium diet - goal is systolic BP of 120 mm or less and diastolic BP of 85 mm or less Have offered to start him on BP meds in the past but he declined - states that he would like to work on trying to lose weight first and if that is not enough to get his BP to goal, then he will agree to start taking Rx His BP has been running very high over the past month, likely in relation to his increased headaches lately although have cautioned patient that it is possible that his headaches are also in part, due to his high blood pressure He would like to hold off on being started on BP meds at least until he is seen by neurology next week Patient is reminded to continue monitoring his blood pressure regularly and to call back if his BP continues to stay consistently high over the next few weeks irregardless of whether his headaches are better controlled or not by then We will also alert our nurse navigators to try reaching out to patient and help him recheck his blood pressure sometime over the next few weeks (3) Asthma: Code(s): J45.909 - Unspecified asthma, uncomplicated Category: Medical Qualifiers: Asthma severity: mild Asthma persistence: intermittent Asthma complication type: uncomplicated Qualified Code(s): J45.20 - Mild intermittent asthma, uncomplicated Plan: Controlled Continue Montelukast 10 mg Q PM and Albuterol HFA 1 to 2 inhalations Q 6 hours only as needed (4) Allergic rhinitis: Code(s): J30.9 - Allergic rhinitis, unspecified Category: Medical Qualifiers: Allergic rhinitis trigger: unspecified Allergic rhinitis seasonality: unspecified Qualified Code(s): J30.9 - Allergic rhinitis, unspecified Plan: Continue Montelukast 10 mg Q PM Have reminded him again that he can also take OTC Claritin (Loratadine) 10 mg QD or Cetirizine 10 mg QD if needed He was getting allergy injections from Dr. Gamboa in the past but has not gotten any shots in the past few years (5) Obstructive sleep apnea: Code(s): G47.33 - Obstructive sleep apnea (adult) (pediatric) Category: Medical Plan: Continue using his CPAP device when sleeping at night daily Feels that his CPAP therapy has helped him a lot as he feels more alert during the day (6) Morbid obesity with BMI of 40.0-44.9, adult: Code(s): E66.01 - Morbid (severe) obesity due to excess calories; Z68.41 - Body mass index [BMI] 40.0-44.9, adult Category: Medical Plan: Reinforced diet/exercise as tolerated/lose weight Plan To return as scheduled in March 2025 for his next annual physical examination Patient is instructed to get his labs (ordered) done prior to coming in for his appointment in March 2025 Orders: Orders Complete Blood Count Auto Diff 03/14/25 D64.9 - Anemia, unspecified, Z00. - Encounter for general adult medical examination without abnormal findings Comprehensive [place]. Panel Fast 03/14/25 E78.00 - Pure hypercholesterolemia, unspecified, Z00. - Encounter for general adult medical examination without abnormal findings TSH reflex Free T4 03/14/25 E78.00 - Pure hypercholesterolemia, unspecified, Z00.00 - Encounter for general adult medical examination without abnormal findings Lipid Panel 03/14/25 E78.00 - Pure hypercholesterolemia, unspecified, Z00.00 - Encounter for general adult medical examination without abnormal findings UA CC w/rflx Micro + Cult 03/14/25 R30.0 - Dysuria, Z00. - Encounter for general adult medical examination without abnormal findings Vitamin D 25-OH Total 03/14/25 E55.9 - Vitamin D deficiency, unspecified, Z00. - Encounter for general adult medical examination without abnormal findings Prostate Specific Antigen Scr 03/14/25 Z00.00 - Encounter for general adult medical examination without abnormal findings
== END 2024-09-08 17:33 | disposition home or self-care (01) ==
LOC: HO.HMCH 16:57
PROVIDERS: PCP Internal Medicine; Visit Provider Internal Medicine
DX: R51.9 Headache, unspecified (principal); I10 Essential (primary) hypertension; E66.01 Morbid (severe) obesity due to excess calories; Z68.41 Body mass index [BMI] 40.0-44.9, adult; J45.20 Mild intermittent asthma, uncomplicated; J30.9 Allergic rhinitis, unspecified; G47.33 Obstructive sleep apnea (adult) (pediatric)

== ENCOUNTER → 2024-09-08 16:56 | Outpatient (BNVA) | payer BC, SELFPAY | PROVIDERS: PCP Internal Medicine; Visit Provider Internal Medicine | DX: R51.9 Headache, unspecified (principal); I10 Essential (primary) hypertension; J45.20 Mild intermittent asthma, uncomplicated; J30.9 Allergic rhinitis, unspecified; G47.33 Obstructive sleep apnea (adult) (pediatric); E66.01 Morbid (severe) obesity due to excess calories; Z68.41 Body mass index [BMI] 40.0-44.9, adult; Z79.899 Other long term (current) drug therapy | CPT/HCPCS: 96127 ==

== ENCOUNTER → 2024-10-16 15:16 | Outpatient (BNVA) | payer BC, SELFPAY | PROVIDERS: PCP Internal Medicine ==

== ENCOUNTER 2024-12-08 15:36 | Outpatient (AMB) | payer BC, SELFPAY ==
--- NOTE | 2024-12-08 15:38 | A.OFFVIS_ITS ---
Intake Visit Reasons: 2 month Allergies animal dander Allergy (Unknown, Verified 09/08/24 17:17) WHEEZING banana Allergy (Unknown, Verified 09/08/24 17:17) ITCHY THROAT, WHEEZING cranberry (Cranberry) Allergy (Unknown, Verified 09/08/24 17:17) WHEEZING latex Allergy (Unknown, Verified 09/08/24 17:17) WHEEZY penicillin V Allergy (Unknown, Verified 09/08/24 17:17) hives Penicillins Allergy (Unknown, Verified 09/08/24 17:17) UNKNOWN topiramate Allergy (Verified 12/08/24 15:42) Rash ENVIRONMENTAL Allergy (Unknown, Uncoded 09/08/24 17:17) WHEEZING SEASONAL ALLERGIES Allergy (Unknown, Uncoded 09/08/24 17:17) WHEEZING Medication List - Last Reconciled 12/08/24 by Soren Calvert MD albuterol sulfate 90 mcg/actuation 2 puffs inhalation Q6H PRN azithromycin take 500 mg today (day 1), then 250 mg for 4 days (days 2-5) PO colchicine 0.3 mg (1/2 x 0.6 mg) PO DAILY 5 days [CPAP device As directed] [CPAP SUPPLIES (MASK, FILTERS, HOSES and HEADGEAR) As directed] montelukast 10 mg PO QPM topiramate 25 mg PO DAILY verapamil 40 mg PO BID HPI Comments Details: 54 yo man with migraine with visual aura. He developed a rash with topiramate and it was stopped. Now he was taking verapamil 40mg bid. He was feeling little bit better. He also talked about tingling and numb feeling in his hands, which was happening even during daytime. 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 [facility] Medical History (Updated 12/08/24 @ 15:46 by Soren Calvert MD) Concussion Migraine with aura Essential hypertension Obesity (BMI 30-39.9) Obstructive sleep apnea Allergic rhinitis Migraine equivalent syndrome Sinusitis COVID-19 Hernia Asthma Surgical History Status post colonoscopy (~11/13/18) Status post balloon dilatation of esophageal stricture (~05/09/12) Family History (Updated 09/08/24 @ 17:07 by ISAIAS Kumar) Father Mental health disorder Mother High blood pressure High cholesterol Cancer COPD (chronic obstructive pulmonary disease) Social History Housing: House Alcohol intake: current Alcohol intake frequency: does not drink Patient Tobacco Use Status: Never used Tobacco e-Cigarette/Vaping Use: Never Used Second Hand Smoke Exposure: No service: No Current occupational status: employed Cognitive needs: No Hearing needs: No Vision needs: No Physical Exam Neuro Other: Mental Status: Alert and oriented to person, place, and time. Normal attention. Normal spontaneous speech, fluency, and comprehension. No obvious issues with mood and memory. Affect is appropriate. Cranial Nerves: CN II: Visual nair full to confrontation, visual acuity intact. CN III, IV, : Pupils equal, round, reactive to light and accommodation. Extraocular movements are normal. CN V: Facial sensation is normal. CN VII: Facial movements symmetrical. CN VIII: Hearing intact to bedside conversation is normal. CN IX, X: Palate elevates symmetrically. CN XI: Shoulder shrug and head turn symmetrical. CN XII: Tongue midline without atrophy or fasciculations. Motor: Bulk and tone normal in all extremities. No significant muscle weakness in arms and legs. No drift. Reflexes: Deep tendon reflexes 2+ and symmetric. Plantar response down-going bilaterally. Coordination: [id number] and [id number] testing normal. No dysmetria. Gait and Station: No obvious gait abnormality. No ataxia or instability. Sensory: Intact to light touch, pinprick, and vibration. Romberg is negative. Extrapyramidal: Full facial expressions and blinking. No rigidity. Movements are appropriate with no tremor or abnormality. Speech: Normal; no dysarthria or tremor. Assessment & Plan Assessment & Plan (1) Migraine equivalent syndrome: Comment: CT brain WO at [facility] [place] in Aug 2024: Mild cortical FP atrophy CT brain WO at [facility] [place] in May 2017: WNL Code(s): G43.109 - Migraine with aura, not intractable, without status migrainosus Category: Medical Plan: Topiramate stopped because of allergic reaction. Verapamil is changed to 120 mg 1 a day at night. (2) Carpal tunnel syndrome: Code(s): G56.00 - Carpal tunnel syndrome, unspecified upper limb Category: Medical Qualifiers: Laterality: bilateral Qualified Code(s): G56.03 - Carpal tunnel syndrome, bilateral upper limbs Plan EMG nerve conduction study is recommended to rule out carpal tunnel syndrome. Orders: Orders NE nerve conduction velocity Today G56.03 - Carpal tunnel syndrome, bilateral upper limbs NE electromyogram EMG w Botuli Today G56.03 - Carpal tunnel syndrome, bilateral upper limbs Medications: New verapamil 120 mg PO BEDTIME 90 tabs 0RF Coding Level of Care Code Tele Est Pt Level 4 (71930) Diagnoses Migraine equivalent syndrome G43.109 Bilateral carpal tunnel syndrome G56.03 Laterality: bilateral
--- OUTSIDE RECORDS SUMMARY | 2024-12-08 15:47 | XMS_ITS | Patient Health Record ---
Author Organization [facility] Address [address] [place] [address] Care Team Providers Care Machine Hamper Maker Name Role Phone Yon LEYVA, Nishant Primary Care Provider Unava ilable Rick Frances Unavailable [phone] Allergies Allergen (clinical drug ingredient) Drug/Non Drug Allergy documented on EMR Reaction Allergy Type Onset Date Status Penicillin Unknown Drug Allergy Active dogs, cats,dust,mold,grass and cranberrys (uncoded) Unknown Allergy Active Latex latex (uncoded) Unknown Allergy Acti ve Reason For Referral Referring Provider First Name Nishant Referring Provider Last Name Yon Referring Provider Speciality Internal M edicine Referred Organization [facility] Referred Provider Rick Frances Referred Address [address] [facility],[address],[place], [place],[address], Referred Provider Specialty Gastroentero logy General Notes requested [facility] for visit with Dr. Frances on 11-19-2024 [address] [place] [address] Dr. Marvin's office dated 11-19-24 Referral Priority Routine Medications Medication SIG (Take, Route, Frequency, Duration) Notes Start Date End Date Status ProAir HFA 108 (90 Base) MCG/ACT USE 2 PUFFS 4 TIMES A DAY NEEDED INHALATION 30 DAYS Inhalation for 25 Active Albuterol Sulfate Ac tive Topiramate 25 MG TAKE 1 TABLET BY PEYTON TH EVERY DAY FOR 30 DAYS Oral for 30 Days Active Montelukast Sodium 10 MG TAKE 1 TABLET A T BEDTIME ONCE A DAY ORALLY 30 DAYS Oral for 30 Active Immunizations Vaccine Route Administration Date Status Comme nts Influenza Unknown 02/02/2018 Administered Influenza Unknown 02/19/2024 Administered Social History AUDIT-C (Standard) Question Answer Notes Did you have a drink containing alcohol in the p ast year? No Points 0 Interpretation Negative Section Notes: Nonsmoker; drinks 4-6 beers daily Nonsmoker; drinks 4-6 beers daily Nonsmoker; drinks 4-6 beers every other day Nonsmoker; drinks 4-6 beers every other day but quit in 08/2024 Problems Problem Type SNOMED Code ICD Code Onset Dates Problem Status W/U Status Risk Notes Problem 069168651 Encounter for screening for malignant neoplasm of colon (Z12.11) Active confirmed Problem 704735727 Family history of colonic polyps (Z83.71) Active confirmed Problem Fatty liver (K76.0) Active confirmed Problem Erosive esophagitis (87857852) Erosive esophagitis (K22.10) Active confirmed Problem 008693478 Esophageal ring (K22.2) Active confirmed Problem 75601106 Esophageal dysphagia (R13.10) Active confirmed Vital Signs Temperature 98.4 degrees Fahrenheit 11/19/2024 Blood pressure diastolic 01 mm Hg 11/19/2024 Height 65 in 11/19/2024 Blood pressure systolic 001 mm Hg 11/19/2024 Weight 259.6 lbs 11/19/2024 BMI 43.19 kg/m2 11/19/2024 Procedures Procedure Date Ordered Date Performed Result Body Sit e UPPER GI ENDOSCOPY 11/19/2024 N/A COLONOSCOPY 11/19/2024 N/A Encounters Encounter Location Date Provider Diagnosis [facility] [address] [place] [phone] 11/19/2024 Rick Frances Encounter for screening for malignant neoplasm of colon Z12.11 ; Erosive esophagitis K22.10 ; Family history of colonic polyps Z83.71 ; Family history of colon cancer Z80.0 ; Fatty liver K76.0 and Elevated liver function tests R79.89 [facility] [address] [place] [phone] 11/19/2024 Rick Frances Assessments Encounter Date Diagnosis (ICD Code) Assessment Notes Treatment Notes Treatment Clinical Notes Section Notes 11/19/2024 Encounter for screening for malignant neoplasm of colon (ICD-10 - Z12.11) Overall, Vance is not having any particularly new or worrisome GI complaints. I did recommend a follow-up colonoscopy for screening given his last colonoscopy being in 2019 and is significant family history of 3 first-degree relatives with colon polyps and a paternal uncle with relatively early colon cancer. We did review the rationale for this in regard to colorectal cancer prevention. I have also recommended a follow-up upper endoscopy on the same day to reassess his finding of erosive esophagitis back in 2019. He is not having any particularly worrisome symptoms at this point such as dysphagia or weight significant heartburn, but I advised him that I think would be important to be sure there is no ongoing inflammation and damage to the esophagus that is going unchecked as he is not taking any acid suppression at this time. I do not think he will need a dilation at the time of the endoscopy as he is not having any significant dysphagia at this time. I did advise him that if indeed I find ongoing esophagitis I would definitely recommend that he get on some acid suppression such as a PPI after that. Full consent has been obtained from him for both procedures, including risks of bleeding and perforation. The procedures will be done with monitored anesthesia care. In regard to the history of fatty liver and slightly elevated ALT, I did recommend a follow-up abdominal ultrasound to reassess his liver and to look for any indirect signs of cirrhosis. I shall repeat a liver profile as well. We did review his risk factors for fatty liver including that of his obesity and alcohol use. I did advise him that I would be very important that he hopefully stay off alcohol completely at this point as well as trying to lose some weight and watching his diet. Vance was comfortable with this plan. Thank you again for allowing me to participate in Vance's care. I shall continue to keep you advised of his progress. 11/19/2024 Erosive esophagitis (ICD-10 - K22.10) Overall, Vance is not having any particularly new or worrisome GI complaints. I did recommend a follow-up colonoscopy for screening given his last colonoscopy being in 2019 and is significant family history of 3 first-degree relatives with colon polyps and a paternal uncle with relatively early colon cancer. We did review the rationale for this in regard to colorectal cancer prevention. I have also recommended a follow-up upper endoscopy on the same day to reassess his finding of erosive esophagitis back in 2019. He is not having any particularly worrisome symptoms at this point such as dysphagia or weight significant heartburn, but I advised him that I think would be important to be sure there is no ongoing inflammation and damage to the esophagus that is going unchecked as he is not taking any acid suppression at this time. I do not think he will need a dilation at the time of the endoscopy as he is not having any significant dysphagia at this time. I did advise him that if indeed I find ongoing esophagitis I would definitely recommend that he get on some acid suppression such as a PPI after that. Full consent has been obtained from him for both procedures, including risks of bleeding and perforation. The procedures will be done with monitored anesthesia care. In regard to the history of fatty liver and slightly elevated ALT, I did recommend a follow-up abdominal ultrasound to reassess his liver and to look for any indirect signs of cirrhosis. I shall repeat a liver profile as well. We did review his risk factors for fatty liver including that of his obesity and alcohol use. I did advise him that I would be very important that he hopefully stay off alcohol completely at this point as well as trying to lose some weight and watching his diet. Vance was comfortable with this plan. Thank you again for allowing me to participate in Vance's care. I shall continue to keep you advised of his progress. 11/19/2024 Family history of colonic polyps (ICD-10 - Z83.71) Overall, Vance is not having any particularly new or worrisome GI complaints. I did recommend a follow-up colonoscopy for screening given his last colonoscopy being in 2019 and is significant family history of 3 first-degree relatives with colon polyps and a paternal uncle with relatively early colon cancer. We did review the rationale for this in regard to colorectal cancer prevention. I have also recommended a follow-up upper endoscopy on the same day to reassess his finding of erosive esophagitis back in 2019. He is not having any particularly worrisome symptoms at this point such as dysphagia or weight significant heartburn, but I advised him that I think would be important to be sure there is no ongoing inflammation and damage to the esophagus that is going unchecked as he is not taking any acid suppression at this time. I do not think he will need a dilation at the time of the endoscopy as he is not having any significant dysphagia at this time. I did advise him that if indeed I find ongoing esophagitis I would definitely recommend that he get on some acid suppression such as a PPI after that. Full consent has been obtained from him for both procedures, including risks of bleeding and perforation. The procedures will be done with monitored anesthesia care. In regard to the history of fatty liver and slightly elevated ALT, I did recommend a follow-up abdominal ultrasound to reassess his liver and to look for any indirect signs of cirrhosis. I shall repeat a liver profile as well. We did review his risk factors for fatty liver including that of his obesity and alcohol use. I did advise him that I would be very important that he hopefully stay off alcohol completely at this point as well as trying to lose some weight and watching his diet. Vance was comfortable with this plan. Thank you again for allowing me to participate in Vance's care. I shall continue to keep you advised of his progress. 11/19/2024 Family history of colon cancer (ICD-10 - Z80.0) Overall, Vance is not having any particularly new or worrisome GI complaints. I did recommend a follow-up colonoscopy for screening given his last colonoscopy being in 2019 and is significant family history of 3 first-degree relatives with colon polyps and a paternal uncle with relatively early colon cancer. We did review the rationale for this in regard to colorectal cancer prevention. I have also recommended a follow-up upper endoscopy on the same day to reassess his finding of erosive esophagitis back in 2019. He is not having any particularly worrisome symptoms at this point such as dysphagia or weight significant heartburn, but I advised him that I think would be important to be sure there is no ongoing inflammation and damage to the esophagus that is going unchecked as he is not taking any acid suppression at this time. I do not think he will need a dilation at the time of the endoscopy as he is not having any significant dysphagia at this time. I did advise him that if indeed I find ongoing esophagitis I would definitely recommend that he get on some acid suppression such as a PPI after that. Full consent has been obtained from him for both procedures, including risks of bleeding and perforation. The procedures will be done with monitored anesthesia care. In regard to the history of fatty liver and slightly elevated ALT, I did recommend a follow-up abdominal ultrasound to reassess his liver and to look for any indirect signs of cirrhosis. I shall repeat a liver profile as well. We did review his risk factors for fatty liver including that of his obesity and alcohol use. I did advise him that I would be very important that he hopefully stay off alcohol completely at this point as well as trying to lose some weight and watching his diet. Vance was comfortable with this plan. Thank you again for allowing me to participate in Vance's care. I shall continue to keep you advised of his progress. 11/19/2024 Fatty liver (ICD-10 - K76.0) Overall, Vance is not having any particularly new or worrisome GI complaints. I did recommend a follow-up colonoscopy for screening given his last colonoscopy being in 2019 and is significant family history of 3 first-degree relatives with colon polyps and a paternal uncle with relatively early colon cancer. We did review the rationale for this in regard to colorectal cancer prevention. I have also recommended a follow-up upper endoscopy on the same day to reassess his finding of erosive esophagitis back in 2019. He is not having any particularly worrisome symptoms at this point such as dysphagia or weight significant heartburn, but I advised him that I think would be important to be sure there is no ongoing inflammation and damage to the esophagus that is going unchecked as he is not taking any acid suppression at this time. I do not think he will need a dilation at the time of the endoscopy as he is not having any significant dysphagia at this time. I did advise him that if indeed I find ongoing esophagitis I would definitely recommend that he get on some acid suppression such as a PPI after that. Full consent has been obtained from him for both procedures, including risks of bleeding and perforation. The procedures will be done with monitored anesthesia care. In regard to the history of fatty liver and slightly elevated ALT, I did recommend a follow-up abdominal ultrasound to reassess his liver and to look for any indirect signs of cirrhosis. I shall repeat a liver profile as well. We did review his risk factors for fatty liver including that of his obesity and alcohol use. I did advise him that I would be very important that he hopefully stay off alcohol completely at this point as well as trying to lose some weight and watching his diet. Vance was comfortable with this plan. Thank you again for allowing me to participate in Vance's care. I shall continue to keep you advised of his progress. 11/19/2024 Elevated liver function tests (ICD-10 - R79.89) Overall, Vance is not having any particularly new or worrisome GI complaints. I did recommend a follow-up colonoscopy for screening given his last colonoscopy being in 2019 and is significant family history of 3 first-degree relatives with colon polyps and a paternal uncle with relatively early colon cancer. We did review the rationale for this in regard to colorectal cancer prevention. I have also recommended a follow-up upper endoscopy on the same day to reassess his finding of erosive esophagitis back in 2019. He is not having any particularly worrisome symptoms at this point such as dysphagia or weight significant heartburn, but I advised him that I think would be important to be sure there is no ongoing inflammation and damage to the esophagus that is going unchecked as he is not taking any acid suppression at this time. I do not think he will need a dilation at the time of the endoscopy as he is not having any significant dysphagia at this time. I did advise him that if indeed I find ongoing esophagitis I would definitely recommend that he get on some acid suppression such as a PPI after that. Full consent has been obtained from him for both procedures, including risks of bleeding and perforation. The procedures will be done with monitored anesthesia care. In regard to the history of fatty liver and slightly elevated ALT, I did recommend a follow-up abdominal ultrasound to reassess his liver and to look for any indirect signs of cirrhosis. I shall repeat a liver profile as well. We did review his risk factors for fatty liver including that of his obesity and alcohol use. I did advise him that I would be very important that he hopefully stay off alcohol completely at this point as well as trying to lose some weight and watching his diet. Vance was comfortable with this plan. Thank you again for allowing me to participate in Vance's care. I shall continue to keep you advised of his progress. Plan Of Treatment Pending Test Test Name Order Date UPPER GI ENDOSCOPY 11/19/2024 COLONOSCOPY 11/19/2024 LIVER PROFILE 11/19/2024 US abdomen comp w elastography Future Test Test Name Order Date UPPER GI ENDOSCOPY BALLOOON DILATION OF ESOPH 05/09/2012 UPPER GI ENDOSCOPY BALLOOON DILATION OF ESOPH 08/13/2018 COLONOSCOPY 08/13/2018 Next Appt Details Provider Name:Rick Brantley Juan Daniel , 02/23/2025 09:40:00 AM, [address] [facility] , [place], [place], [phone], Insurance Providers Payer Name Payer Address Payer Phone Subscriber Number Group Number Insured Name Patient Relationship to Insured Coverage Start Date Coverage End Date [facility] PROFESSIONAL CLAIMS [address] [place] [address] [phone] [id number] CECY DILLON Self - patient is the insured Medical (General) History Medical History History ICD Code Hyperplastic colon polyps-colonoscopy 2010 Sleep apnea-uses a CPAP mask Asthma Bronchitis Denies [place],DM,CVA,renal disease EGD with balloon dilation in 05/2012-sma ll HH and distal esophageal ring Abdominal ultrasound in 2014 was negative for gallstones, but did show evidence of probable fatty liver and mildly enlarged spleen. Followup laboratories in 2014 revealed a normal liver profile except for an ALT of 48, normal iron saturation, ferritin 378, and negative viral serologies. Gout Migraine headaches Colonoscopy 2018 was negative EGD 2018 with erosive esopha gitis and small hiatal hernia--no stricture nor ring Surgical History Surgery Date(Month/Year) tubes in ears adenoidectomy tonsillectomy hernia surgery x 2
== END 2024-12-08 15:58 | disposition home or self-care (01) ==
LOC: HO.HSM 15:37
PROVIDERS: PCP Internal Medicine; Visit Provider Psychiatry & Neurology Neurology
DX: G43.109 Migraine with aura, not intractable, without status migrainosus (principal); G56.03 Carpal tunnel syndrome, bilateral upper limbs
CPT/HCPCS: 99214

== ENCOUNTER 2025-01-05 08:13 | Outpatient (REF) | payer BC, SELFPAY ==
--- OUTSIDE RECORDS SUMMARY | 2025-01-05 08:19 | XMS_ITS | Patient Health Record ---
Author Organization [facility] Address [address] [place] [address] Care Team Providers Care City Collector Name Role Phone Yon LEYVA, Nishant Primary Care Provider Unava ilable Rick Frances Unavailable [phone] Allergies Allergen (clinical drug ingredient) Drug/Non Drug Allergy documented on EMR Reaction Allergy Type Onset Date Status Penicillin Unknown Drug Allergy Active dogs, cats,dust,mold,grass and cranberrys (uncoded) Unknown Allergy Active Latex latex (uncoded) Unknown Allergy Acti ve Reason For Referral Referring Provider First Name Nishant Referring Provider Last Name Yon Referring Provider Speciality Internal M edicine Referred Organization [facility] Referred Provider Rick Frances Referred Address [address] [facility],[address],[place], [place],[address], Referred Provider Specialty Gastroentero logy General Notes [facility] for visit with Dr. Frances on 11-19-2024 [...] Problem Status W/U Status Risk Notes Problem 262331533 Encounter for screening for malignant neoplasm of colon (Z12.11) Active confirmed Problem 751126906 Family history of colonic polyps (Z83.71) Active confirmed Problem Fatty liver (140861824) Fatty liver (K76.0) Active confirmed Problem Erosive esophagitis (11984495) Erosive esophagitis (K22.10) Active confirmed Problem 660211958 Esophageal ring (K22.2) Active confirmed Problem 06566188 Esophageal dysphagia (R13.10) Active confirmed Vital Signs Temperature 98.4 degrees Fahrenheit 11/19/2024 Blood pressure diastolic 01 mm Hg 11/19/2024 Height 65 in 11/19/2024 Blood pressure systolic 001 mm Hg 11/19/2024 Weight 259.6 lbs 11/19/2024 BMI 43.19 kg/m2 11/19/2024 Procedures Procedure Date Ordered Date Performed Result Body Sit e UPPER GI ENDOSCOPY 11/19/2024 N/A COLONOSCOPY 11/19/2024 N/A Encounters Encounter Location Date Provider Diagnosis [facility] [address] [place] [phone] 11/19/2024 Rick Frances Encounter for screening for malignant neoplasm of colon Z12.11 ; Erosive esophagitis K22.10 ; Family history of colonic polyps Z83.71 ; Family history of colon cancer Z80.0 ; Fatty liver K76.0 and Elevated liver function tests R79.89 [facility] [address] [place] [phone] 11/19/2024 Rick Frances Assessments Encounter Date Diagnosis [...] Name:Rick Karon Frances , 02/23/2025 09:40:00 AM, [address] [place] [address] , [place], [place], [phone], Insurance Providers Payer Name Payer Address Payer Phone Subscriber Number Group Number Insured Name Patient Relationship to Insured Coverage Start Date Coverage End Date [facility] PROFESSIONAL CLAIMS [address] [place] [address] [phone] [id number] CECY DILLON Self - patient is the insured Medical (General) History Medical History History ICD Code Hyperplastic colon polyps-colonoscopy 2010 Sleep apnea-uses a CPAP mask Asthma Bronchitis Denies [place],DM,CVA,renal disease EGD with balloon dilation in 05/2012-sma [...]
[2025-01-05 11:07] LABS: Alanine Aminotransferase 40 U/L (0-40); Albumin Level 4.0 g/dL (3.5-5.0); Alkaline Phosphatase 51 U/L (39-117); Aspartate Amino Transferase 32 U/L (5-37); Total Protein 6.3 g/dL (6.5-8.0)
== END 2025-01-05 08:14 | disposition home or self-care (01) ==
LOC: HO.10HDL 08:13
PROVIDERS: Visit Provider Internal Medicine
DX: K76.0 Fatty (change of) liver, not elsewhere classified (principal); R79.89 Other specified abnormal findings of blood chemistry
CPT/HCPCS: 36415; 80076

== ENCOUNTER 2025-01-07 08:01 | Outpatient (REF) | payer BC, SELFPAY ==
--- NOTE | ~2025-01-07 | US_ITS ---
EXAMINATION: US ABDOMEN COMPLETE WITH LIVER ELASTOGRAPHY HISTORY: FATTY LIVER, ELEVATED LFT TECHNIQUE: Real-time grayscale ultrasound imaging of the abdomen was performed and images were reviewed. COMPARISON: There are no prior studies available for comparison. FINDINGS: Liver: The right lobe of the liver measures 16.1 cm in size. The left lobe of the liver measures 14.2 cm in size. The liver demonstrates increased echotexture, consistent with steatosis. No focal mass or intrahepatic biliary ductal dilatation is identified. There is normal hepatopedal flow in the portal vein. Ultrasound elastography of the liver was performed with 10 separate measurements of the liver parenchyma with the patient in the supine position. Measurements were obtained approximately 2 cm below Isacc's capsule and perpendicular to the capsule. The median shear wave velocity is 0.89 m/s. The interquartile range/median (IQR/median) is 0.29. Gallbladder and biliary tree: The gallbladder is unremarkable, without evidence of calculi, wall thickening, or pericholecystic fluid. There is no sonographic Kelley sign. The common bile duct is normal in caliber measuring 3 mm. Kidneys: The right kidney measures 11.5 cm in length. The left kidney measures 12.1 cm in length. The kidneys are unremarkable, without evidence of masses, hydronephrosis, or calculi. Pancreas: The pancreatic head, neck, and body are unremarkable. The pancreatic tail is obscured by bowel gas. Spleen: The spleen is normal in size and contour, measuring 14.7 cm in length. Abdominal aorta and inferior vena cava: The visualized portions of the abdominal aorta and inferior vena cava are normal in caliber. There is no free fluid in the abdomen. US/US abdomen comp w elastography IMPRESSION: Hepatosplenomegaly and hepatic steatosis. The median shear wave velocity in the liver is 0.89 m/s, corresponding to a median liver stiffness of 2.4 kPa. The IQR/median value is 0.29. This is indicative of a quality data set. Findings are indicative of a normal elastography value with a low likelihood of severe fibrosis or cirrhosis. REFERENCE: Society of Radiologists in Ultrasound Liver Stiffness Thresholds (2020): LIVER STIFFNESS THRESHOLDS: *Shear wave velocity less than 1.3 m/s (Liver Stiffness equal or less than 5 kPa): High probability of being normal. *Shear wave velocity less than 1.7 m/s (Liver Stiffness less than 9 kPa): In the absence of other known clinical signs, rules out compensated advanced chronic liver disease. *Shear wave velocity between 1.7-2.1 m/s (Liver Stiffness 9-13 kPa): Suggestive of compensated advanced chronic liver disease but need further test for confirmation. *Shear wave velocity between 2.1-2.4 m/s (Liver Stiffness 13-17 kPa): Rules in compensated advanced chronic liver disease. *Shear wave velocity greater than 2.4 m/s (Liver Stiffness over 17 kPa): Suggestive of clinically significant portal hypertension. QUALITY OF DATA SET: *IQR/Median value equal or less than 0.30 implies a quality data set. *IQR/Median value over 0.30 implies a poor quality data set. SIGNIFICANT CHANGE FROM PRIOR EXAM: Significant change if liver stiffness measurement is 10% or greater from prior exam. OTHER CONSIDERATIONS: The stage of liver fibrosis may be overestimated in the setting of acute hepatitis, liver inflammation, elevated liver function tests, hepatic vascular congestion, obstructive cholestasis, non-fasting state, and infiltrative diseases such as amyloidosis and lymphoma. In some patients with NAFLD, the liver stiffness thresholds for compensated advanced chronic liver disease may be lower. In causes other than viral hepatitis and NAFLD, liver stiffness thresholds are not well established. Electronically signed by: Rick Loya MD 01/07/2025 08:55 AM EDT
--- OUTSIDE RECORDS SUMMARY | 2025-01-07 08:03 | XMS_ITS | Patient Health Record ---
Author Organization [facility] Address [address] [place] [address] Care Team Providers Care Radiologist Chief Of Breast Imaging Name Role Phone Yon LEYVA, Nishant Primary Care Provider Unava ilable Rick Frances Unavailable [phone] Allergies Allergen (clinical drug ingredient) Drug/Non Drug Allergy documented on EMR Reaction Allergy Type Onset Date Status Penicillin Unknown Drug Allergy Active dogs, cats,dust,mold,grass and cranberrys (uncoded) Unknown Allergy Active Latex latex (uncoded) Unknown Allergy Acti ve Results Component Value Reference Range Notes Liver Panel (Not yet reviewe d by provider) Interpretation: Performing Lab:[facility], [address] [place] [id number] Notes/Report: Bilirubin Total 0.9 0.0-1.0 mg/dL Bilirubin Direct 0.3 0.0-0.5 mg/dL Aspartate Amino Transferase 32 5-37 U/L Alanine Aminotransferase 40 0-40 U/L Total Protein 6.3 6.5-8.0 g/dL Albumin Level 4.0 3.5-5.0 g/dL Alkaline Phosphatase 51 39-117 U/L Reason For Referral Referring Provider First Name Nishant Referring Provider Last Name Yon Referring Provider Speciality Internal M edicine Referred Organization [facility] Referred Provider Rick Frances Referred Address [address],[place], [place],[address], Referred Provider Specialty Gastroentero logy General Notes requested [facility] for visit with Dr. Frances on [...] Problem Status W/U Status Risk Notes Problem 494008894 Encounter for screening for malignant neoplasm of colon (Z12.11) Active confirmed Problem 350099986 Family history of colonic polyps (Z83.71) Active confirmed Problem Fatty liver (K76.0) Active confirmed Problem Erosive esophagitis (03852912) Erosive esophagitis (K22.10) Active confirmed Problem 339773592 Esophageal ring (K22.2) Active confirmed Problem 88074497 Esophageal dysphagia (R13.10) Active confirmed Vital Signs Temperature 98.4 degrees Fahrenheit 11/19/2024 Blood pressure diastolic 01 mm Hg 11/19/2024 Height 65 in 11/19/2024 Blood pressure systolic 001 mm Hg 11/19/2024 Weight 259.6 lbs 11/19/2024 BMI 43.19 kg/m2 11/19/2024 Procedures Procedure Date Ordered Date Performed Result Body Sit e UPPER GI ENDOSCOPY 11/19/2024 N/A COLONOSCOPY 11/19/2024 N/A Encounters Encounter Location Date Provider Diagnosis [facility] [address] [facility] [address] [place] [address] 11/19/2024 Rick Frances Encounter for screening for malignant neoplasm of colon Z12.11 ; Erosive esophagitis K22.10 ; Family history of colonic polyps Z83.71 ; Family history of colon cancer Z80.0 ; Fatty liver K76.0 and Elevated liver function tests R79.89 [facility] [address] [place] [address] 11/19/2024 Rick Frances Assessments Encounter Date Diagnosis [...] ENDOSCOPY 11/19/2024 COLONOSCOPY 11/19/2024 LIVER PROFILE 11/19/2024 Liver Panel 01/05/2025 US abdomen comp w elastography Future Test Test Name Order Date UPPER GI ENDOSCOPY BALLOOON DILATION OF ESOPH 05/09/2012 UPPER GI ENDOSCOPY BALLOOON DILATION OF ESOPH 08/13/2018 COLONOSCOPY 08/13/2018 Next Appt Details Provider Name:Rick Frances , 02/23/2025 09:40:00 AM, [address] [place] [address] , [place], [place], [phone], Insurance Providers Payer Name Payer Address Payer Phone Subscriber Number Group Number Insured Name Patient Relationship to Insured Coverage Start Date Coverage End Date [employer] CLAIM[employer] [address] [place] [address] [id number] CECY DILLON Self - patient is the insured Medical (General) History Medical History History ICD Code Hyperplastic colon polyps-colonoscopy 2010 Sleep apnea-uses a CPAP mask Asthma Bronchitis Denies VT,DM,CVA,renal disease EGD with balloon dilation in 05/2012-sma [...] Migraine headaches Colonoscopy 2018 was negative EGD 2019 with erosive esopha gitis and small hiatal hernia--no stricture nor ring Surgical History Surgery Date(Month/Year) tubes in ears adenoidectomy tonsillectomy hernia surgery x 2
== END 2025-01-07 08:02 | disposition home or self-care (01) ==
LOC: HO.US 08:01
PROVIDERS: PCP Internal Medicine; Visit Provider Internal Medicine
DX: K76.0 Fatty (change of) liver, not elsewhere classified (principal); R79.89 Other specified abnormal findings of blood chemistry
CPT/HCPCS: 76700; 76981

== ENCOUNTER → 2025-01-07 08:04 | Outpatient (BNV) | payer BC, SELFPAY | PROVIDERS: PCP Internal Medicine; Visit Provider Radiology Diagnostic Radiology | DX: K76.0 Fatty (change of) liver, not elsewhere classified (principal); R16.2 Hepatomegaly with splenomegaly, not elsewhere classified | CPT/HCPCS: 76700 ==

== ENCOUNTER 2025-02-23 08:45 | Day surgery (SDC) | payer BC, SELFPAY ==
--- OUTSIDE RECORDS SUMMARY | 2024-12-29 09:55 | XMS_ITS | Patient Health Record ---
Author Organization [facility] Address [address] [place] [address] Care Team Providers Care Supervisor Sawmill Name Role Phone Yon LEYVA, Nishant Primary Care Provider Unava ilable Rick Frances Unavailable [phone] Allergies Allergen (clinical drug ingredient) Drug/Non Drug Allergy documented on EMR Reaction Allergy Type Onset Date Status Penicillin Unknown Drug Allergy Active dogs, cats,dust,mold,grass and cranberrys (uncoded) Unknown Allergy Active Latex latex (uncoded) Unknown Allergy Acti ve Reason For Referral Referring Provider First Name Nishant Referring Provider Last Name Yon Referring Provider Speciality Internal M edicine Referred Organization [facility] Referred Provider Rick Frances Referred Address [address] [facility],[address],[place], [place],[address], Referred Provider Specialty Gastroentero logy General Notes requested [facility] for visit with Dr. Frances on 11-19-2024 [...] Problem Status W/U Status Risk Notes Problem 620121659 Encounter for screening for malignant neoplasm of colon (Z12.11) Active confirmed Problem 118720611 Family history of colonic polyps (Z83.71) Active confirmed Problem Fatty liver (372069545) Fatty liver (K76.0) Active confirmed Problem Erosive esophagitis (18882848) Erosive esophagitis (K22.10) Active confirmed Problem 275982159 Esophageal ring (K22.2) Active confirmed Problem 21342337 Esophageal dysphagia (R13.10) Active confirmed Vital Signs Temperature 98.4 degrees Fahrenheit 11/19/2024 Blood pressure diastolic 01 mm Hg 11/19/2024 Height 65 in 11/19/2024 Blood pressure systolic 001 mm Hg 11/19/2024 Weight 259.6 lbs 11/19/2024 BMI 43.19 kg/m2 11/19/2024 Procedures Procedure Date Ordered Date Performed Result Body Sit e UPPER GI ENDOSCOPY 11/19/2024 N/A COLONOSCOPY 11/19/2024 N/A Encounters Encounter Location Date Provider Diagnosis [facility] [address] [place] [phone] 11/19/2024 Rick Frances Encounter for screening for malignant neoplasm of colon Z12.11 ; Erosive esophagitis K22.10 ; Family history of colonic polyps Z83.71 ; Family history of colon cancer Z80.0 ; Fatty liver K76.0 and Elevated liver function tests R79.89 [facility] [address] [place] [phone] 11/19/2024 Rick Frances Assessments Encounter Date Diagnosis [...] COLONOSCOPY 08/13/2018 Next Appt Details Provider Name:Rick Karon Frances , 02/23/2025 09:40:00 AM, [address] [place] [address] , [place], [place], [phone], Insurance Providers Payer Name Payer Address Payer Phone Subscriber Number Group Number Insured Name Patient Relationship to Insured Coverage Start Date Coverage End Date [facility] PROFESSIONAL CLAIMS [address] [place] [address] [id number] CECY DILLON Self - patient is the insured Medical (General) History Medical History History ICD Code Hyperplastic colon polyps-colonoscopy 2010 Sleep apnea-uses a CPAP mask Asthma Bronchitis Denies [place],DM,CVA,renal disease EGD with balloon dilation in 05/2012-sma [...]
--- NOTE | 2025-02-19 12:53 | HO.ANESPROP2 ---
Documented by User: Adriana Singh NP 02/19/25 12:54 HPI - Anesthesia Eval Consult details Narrative: 54yo M for Upper Endoscopy and Colonoscopy [facility] Active Problems Active Problems: All Active Problems Carpal tunnel syndrome (Acute) Blurring of vision (Acute) Headache (Acute) Essential hypertension (Acute) Annual physical exam (Acute) Morbid obesity with BMI of 40.0-44.9, adult (Acute) Asthma (Acute) Obesity (BMI 30-39.9) (Acute) Obstructive sleep apnea (Acute) Allergic rhinitis (Acute) Migraine equivalent syndrome (Acute) Sinusitis (Acute) COVID-19 (Acute) Past Medical History Medical History Concussion Essential hypertension Obesity (BMI 30-39.9) Obstructive sleep apnea Allergic rhinitis Migraine equivalent syndrome Asthma Family History Family History Father Mental health disorder Mother High blood pressure High cholesterol Cancer COPD (chronic obstructive pulmonary disease) Surgical History Surgical History Hx of myringotomy History of tonsillectomy and adenoidectomy History of hernia surgery Status post colonoscopy (~11/13/18) Status post balloon dilatation of esophageal stricture (~05/09/12) Social History Social History Housing: House Alcohol intake: current Alcohol intake frequency: does not drink Patient Tobacco Use Status: Never used Tobacco e-Cigarette/Vaping Use: Never Used Second Hand Smoke Exposure: No service: No Current occupational status: employed Cognitive needs: No Hearing needs: No Vision needs: No Meds Allergies Allergy/AdvReac Type Severity Reaction Status Date / Time animal dander Allergy Intermediate WHEEZING Verified 02/19/25 14:43 banana Allergy Intermediate ITCHY Verified 02/19/25 14:43 THROAT, WHEEZING environmental allergies Allergy Intermediate Wheezing Verified 02/19/25 14:43 latex Allergy Intermediate WHEEZY Verified 02/19/25 14:43 Penicillins Allergy Intermediate Hives Verified 02/19/25 14:43 topiramate Allergy Intermediate Rash Verified 02/19/25 14:43 cranberry (Cranberry) Allergy Mild WHEEZING Verified 02/19/25 14:43 Assessment and Plan Assessment Anesthesia Assessment: Chart Reviewed Documented by User: Yoly Tompkins MD 02/23/25 08:41 PMFSH Past Medical History Medical History Concussion Essential hypertension Obesity (BMI 30-39.9) Obstructive sleep apnea Allergic rhinitis Migraine equivalent syndrome Asthma Family History Family History Father Mental health disorder Mother High blood pressure High cholesterol Cancer COPD (chronic obstructive pulmonary disease) Family history of problems with anesthesia: No Surgical History Surgical History Hx of myringotomy History of tonsillectomy and adenoidectomy History of hernia surgery Status post colonoscopy (~11/13/18) Status post balloon dilatation of esophageal stricture (~05/09/12) History of Problems with Anesthesia: No Social History Social History Housing: House Alcohol intake: current Alcohol intake frequency: does not drink Patient Tobacco Use Status: Never used Tobacco e-Cigarette/Vaping Use: Never Used Second Hand Smoke Exposure: No service: No Current occupational status: employed Cognitive needs: No Hearing needs: No Vision needs: No Meds Allergies Allergy/AdvReac Type Severity Reaction Status Date / Time animal dander Allergy Intermediate WHEEZING Verified 02/19/25 14:43 banana Allergy Intermediate ITCHY Verified 02/19/25 14:43 THROAT, WHEEZING environmental allergies Allergy Intermediate Wheezing Verified 02/19/25 14:43 latex Allergy Intermediate WHEEZY Verified 02/19/25 14:43 Penicillins Allergy Intermediate Hives Verified 02/19/25 14:43 topiramate Allergy Intermediate Rash Verified 02/19/25 14:43 cranberry (Cranberry) Allergy Mild WHEEZING Verified 02/19/25 14:43 Exam Airway Mallampati Class: III TM Dist: <=3cm Neck ROM: Full Heart: rrr Lungs: cta Assessment and Plan Assessment Anesthesia Assessment: Anesthesia Plan Discussed Final Anesthetic Review Family History of Problems with Anesthesia: No History of Problems with Anesthesia: No NPO: Yes ASA Class: III Final Preanesthetic Review: No Changes in Pt Med Stat, Meds/Allgs Chart Reviewed, Consent Obtained/Reviewed and Anes Risks/Benef Reviewed Patient Risk: Intermediate Procedure Risk: Low Anesthetic Plan Anesthetic Plan: MAC: and Agree w/ Assess. and Plan Disposition: Standard PACU
[2025-02-19 14:39] VITALS: BMI 43.2
[2025-02-23 08:52] VITALS: BMI 40.8
[2025-02-23 09:08] VITALS: BP 134/83; PULSE 80; RESP 16; TEMP 36.6; O2SAT 99
[2025-02-23] MEDS: Lactated Ringers 1,000 ML 100 ML IVCONT (09:19)
[2025-02-23 11:22] VITALS: PULSE 89; RESP 13; TEMP 36.4; O2SAT 99
--- NOTE | 2025-02-23 11:29 | PM.OP ---
Brief Operative Note Date of Service: 02/23/25 Pre-op diagnosis: Screening, GERD, dysphagia Post-op diagnosis: other (Esophageal stricture, Colon polyps) Procedure: EGD with bx and Balloon dilation from 18 to 19mm, Colonoscopy to the cecum and TI with bx/removal of polyps and hot snare polypectomy at 50cm Surgeon: Rick Frances MD Anesthesia: MAC Was an Seed Cutter used for this Procedure?: No Estimated blood loss (mL): 2.0 Pathology: other (A. Gastric antrum B. Ascending colon polyp C. Transverse colon polyp D. Polyp at 50cm) Condition: stable Disposition: PACU
[2025-02-23 11:37] VITALS: BP 132/82; PULSE 66; RESP 20; O2SAT 100
[2025-02-23 11:42] VITALS: BP 133/75; PULSE 64; RESP 20; TEMP 36.4; O2SAT 100
--- NOTE | 2025-02-23 11:57 | OP_ITS ---
DATE OF SERVICE: 02/23/2025 SURGEON: Rick Frances MD INDICATIONS: The patient presents for evaluation of history of esophagitis, gastroesophageal reflux, occasional dysphagia, colorectal cancer screening, family history of colon polyps. PREOPERATIVE DIAGNOSIS: POSTOPERATIVE DIAGNOSIS: PROCEDURE PERFORMED: Esophagogastroduodenoscopy with biopsies and balloon dilation of distal esophageal stricture, and colonoscopy to the cecum and terminal ileum with biopsy removal of polyps and hot snare polypectomy. ESTIMATED BLOOD LOSS: COMPLICATIONS: ANESTHESIA: Medication use, monitored anesthesia care. ASSISTANTS: SPECIMENS: POSTOPERATIVE DIAGNOSES: The patient presents for evaluation of history of esophagitis, gastroesophageal reflux, occasional dysphagia, colorectal cancer screening, family history of colon polyps, small hiatal hernia, esophageal stricture, gastritis, colon polyps, diverticulosis, and internal hemorrhoids. DESCRIPTION OF PROCEDURE: The patient was placed in the left lateral decubitus position. The Olympus video gastroscope was passed in the posterior oropharynx and upper esophagus under direct vision. The scope was passed slowly to the distal esophagus. The gastroesophageal junction appeared at 36 cm with a fibrotic nonobstructing esophageal stricture, which allowed easy passage of the scope. There was no mass, esophagitis, nor Fernandez's esophagus. The scope entered into the stomach. There was a small hiatal hernia. The scope was advanced to the pylorus and the duodenum was cannulated to the descending portion. The duodenum including the bulb appeared normal without mass or ulceration. The scope was withdrawn back to the stomach. The gastric antrum had some areas of edema and erythema consistent with some gastritis, but no erosions or ulceration. There was good peristalsis. Biopsies were obtained from the antrum. The scope was retroflexed visualizing the proximal stomach carefully, which appeared normal, without any sign of mass or ulceration. The scope was straightened and withdrawn back to the esophagus. I did use a [employer] incremental balloon to dilate the esophageal stricture from 18 mm to 19 mm at the recommended pressure for between 30 and 60 seconds each. The stricture was disrupted with some heme noted. Proximal to this the esophageal mucosa appeared normal. The scope was withdrawn from the patient. He was turned around for the colonoscopy. The digital rectal exam revealed no abnormalities. The Olympus video pediatric colonoscope was entered into the rectum and advanced easily to the cecum. Once in the cecum, I did identify normal-appearing cecal pouch with appendiceal orifice and normal-appearing ileocecal valve. The terminal ileum was cannulated and appeared normal. The scope was withdrawn back in the colon. The entire cecum and ileocecal valve appeared normal. The scope was slowly withdrawn assessing all mucosal surfaces carefully. Preparation was excellent. In the ascending colon and transverse colon, there were flat 3 or 4 mm polyps, which were each biopsied and completely removed with cold biopsy forceps. At 50 cm, there was an approximately 8 mm polyp, which was removed by hot snare polypectomy and recovered by suction. The polypectomy site appeared clean, without any sign of residual polyp nor bleeding. I did not visualize any other polyps. There was a mild amount of sigmoid diverticulosis. In the rectum scope was retroflexed visualizing internal hemorrhoids, but no other pathology. The rectal mucosa appeared normal. The scope was straightened and withdrawn from the patient. He tolerated the procedures well and was returned to recovery area in stable condition. IMPRESSION: 1. Distal esophageal stricture, status post balloon dilation. 2. Hiatal hernia. 3. Gastritis. 4. Colon polyps. 5. Diverticulosis. 6. Internal hemorrhoids. PLAN: The results of the pathology will be checked. I would recommend a repeat colonoscopy in 5 years for further surveillance. He was advised not to use any aspirin and NSAIDs for 1 week. Given the finding of the stricture and previous history of esophagitis, I shall send over a prescription for him to use omeprazole 20 mg daily, although he is not having much in the way of reflux symptoms. However, I would recommend he stay on that to hopefully prevent recurrence of the stricture. He will see me on a p.r.n. basis otherwise. This has been discussed with his . MD CLAUDINE Bradley/VALERIA / [id number] MTDNuria
== END 2025-02-23 12:28 | disposition home or self-care (01) ==
PROVIDERS: PCP Internal Medicine; Visit Provider Internal Medicine
PROC: (CPT 45385; principal; 2025-02-23 09:40)
DX: Z12.11 Encounter for screening for malignant neoplasm of colon (principal); Z80.0 Family history of malignant neoplasm of digestive organs; Z83.719 Family history of colon polyps, unspecified; D12.2 Benign neoplasm of ascending colon; D12.3 Benign neoplasm of transverse colon; D12.5 Benign neoplasm of sigmoid colon; K57.30 Diverticulosis of large intestine without perforation or abscess without bleeding; K64.8 Other hemorrhoids; K21.9 Gastro-esophageal reflux disease without esophagitis; R13.10 Dysphagia, unspecified; K22.10 Ulcer of esophagus without bleeding; K22.2 Esophageal obstruction; K29.70 Gastritis, unspecified, without bleeding; K44.9 Diaphragmatic hernia without obstruction or gangrene; K76.0 Fatty (change of) liver, not elsewhere classified; R79.89 Other specified abnormal findings of blood chemistry; J45.909 Unspecified asthma, uncomplicated; M10.9 Gout, unspecified; G47.33 Obstructive sleep apnea (adult) (pediatric); G43.909 Migraine, unspecified, not intractable, without status migrainosus; Z79.899 Other long term (current) drug therapy; Z99.89 Dependence on other enabling machines and devices; Z91.040 Latex allergy status; Z88.0 Allergy status to penicillin
CPT/HCPCS: 45385; 45380; 43249; 43239; 88305; 88313; 88342; J2003; J2250; J2704; J3010

== ENCOUNTER 2025-03-06 08:58 | Outpatient (REF) | payer BC, SELFPAY ==
--- OUTSIDE RECORDS SUMMARY | 2025-02-23 05:40 | XMS_ITS ---
Author Organization [facility] Address [address] [place] [address] Care Team Providers Care Power Transformer Inspector Name Role Phone Nishant Marvin MD Primary Care Provider UnaRick Fishman [phone] REASON FOR VISIT screening colon Encounters Encounter Location Date Provider Diagnosis [facility] [place] Out[place] [address] [facility] [place] [id number] 02/23/2025 Rick Frances Plan Of Treatment No Information Progress Notes * CECY DILLONDOB:[birth year] (54 yo M)Acc No.[id number]:02/23/2025 EGD and COL/MAC Patient: CECY SURESH Provider: Sean Frances MD :1970 A ge:54 Y S ex:Male Date:02/23/2025 Address:[address] [place] [address] [place] Pcp:Nishant Marvin MD Subjective: * Chief Complaints: [...] 02/23/2025 Generated for Printi ng/Faavisg/eTransmitting on: 1 09:24 AM EDT
--- OUTSIDE RECORDS SUMMARY | 2025-03-06 09:25 | XMS_ITS | Patient Health Record ---
Author Organization [facility] Address [address] [place] [address] Care Team Providers Care Field Supervisor Name Role Phone Yon LEYVA, Nishant Primary Care Provider Unava Rick Lilly [phone] Allergies Allergen (clinical drug ingredient) Drug/Non Drug Allergy documented on EMR Reaction Allergy Type Onset Date Status Penicillin Unknown Drug Allergy Active dogs, cats,dust,mold,grass and cranberrys (uncoded) Unknown Allergy Active Latex latex (uncoded) Unknown Allergy Acti ve Results Component Value Reference Range Notes Liver Panel Reviewed date:02/22/2025 04:29:12 PM Interpretation: Performing Lab:[facility], [address] [place] [phone] Notes/Report: Bilirubin Total 0.9 0.0-1.0 mg/dL Bilirubin Direct 0.3 0.0-0.5 mg/dL Aspartate Amino Transferase 32 5-37 U/L Alanine Aminotransferase 40 0-40 U/L Total Protein 6.3 6.5-8.0 g/dL Albumin Level 4.0 3.5-5.0 g/dL Alkaline Phosphatase 51 39-117 U/L US abdomen comp w elastograp hy Reviewed date:02/22/2025 04:31:23 PM Interpretation: Performing Lab: Notes/Report: [address] [address] Ultrasound Report Signed with Addenda Patient: Cecy Dillon MR#: [id number] 473 : 1970 Acct:[id number] Age/Sex: 54 / M ADM Date: 01/07/25 Loc: HO.US Attending Dr: Rick Frances MD Ordering Physician: Rick Frances MD Date of Service: 01/07/25 Procedure(s): US abdomen comp w elastography Accession Number(s): [id number] cc: Nishant Marvin MD; Rick Frances MD Reason for Exam: FATTY LIVER, ELEVATED LFT ADDENDUM ADDENDUM #1 In the body of the report, the section regarding the spleen should read as follows: Spleen: The spleen is enlarged, measuring 14.7 cm in length. Electronically signed by: Rick Loya MD 02/20/2025 03:31 PM EDT Addendum Dictated By: Rick Loya MD Addendum Signed By: <Electronically signed by Rick Loya MD in OV> 02/20/25 1531 Addendum Cosigned By: DD/ /27/815 TD/TT: 01/07/2511/26/832 EXAMINATION: US ABDOMEN COMPLETE WITH LIVER ELASTOGRAPHY HISTORY: FATTY LIVER, ELEVATED LFT TECHNIQUE: Real-time grayscale ultrasound imaging of the abdomen was performed and images were reviewed. COMPARISON: There are no prior studies available for comparison. FINDINGS: Liver: The right lobe of the liver measures 16.1 cm in size. The left lobe of the liver measures 14.2 cm in size. The liver demonstrates increased echotexture, consistent with steatosis. No focal mass or intrahepatic biliary ductal dilatation is identified. There is normal hepatopedal flow in the portal vein. Ultrasound elastography of the liver was performed with 10 separate measurements of the liver parenchyma with the patient in the supine position. Measurements were obtained approximately 2 cm below Isacc's capsule and perpendicular to the capsule. The median shear wave velocity is 0.89 m/s. The interquartile range/median (IQR/median) is 0.29. Gallbladder and biliary tree: The gallbladder is unremarkable, without evidence of calculi, wall thickening, or pericholecystic fluid. There is no sonographic Kelley sign. The common bile duct is normal in caliber measuring 3 mm. Kidneys: The right kidney measures 11.5 cm in length. The left kidney measures 12.1 cm in length. The kidneys are unremarkable, without evidence of masses, hydronephrosis, or calculi. Pancreas: The pancreatic head, neck, and body are unremarkable. The pancreatic tail is obscured by bowel gas. Spleen: The spleen is normal in size and contour, measuring 14.7 cm in length. Abdominal aorta and inferior vena cava: The visualized portions of the abdominal aorta and inferior vena cava are normal in caliber. There is no free fluid in the abdomen. US/US abdomen comp w elastography IMPRESSION: Hepatosplenomegaly and hepatic steatosis. The median shear wave velocity in the liver is 0.89 m/s, corresponding to a median liver stiffness of 2.4 kPa. The IQR/median value is 0.29. This is indicative of a quality data set. Findings are indicative of a normal elastography value with a low likelihood of severe fibrosis or cirrhosis. REFERENCE: Society of Radiologists in Ultrasound Liver Stiffness Thresholds (2020): LIVER STIFFNESS THRESHOLDS: *Shear wave velocity less than 1.3 m/s (Liver Stiffness equal or less than 5 kPa): High probability of being normal. *Shear wave velocity less than 1.7 m/s (Liver Stiffness less than 9 kPa): In the absence of other known clinical signs, rules out compensated advanced chronic liver disease. *Shear wave velocity between 1.7-2.1 m/s (Liver Stiffness 9-13 kPa): Suggestive of compensated advanced chronic liver disease but need further test for confirmation. *Shear wave velocity between 2.1-2.4 m/s (Liver Stiffness 13-17 kPa): Rules in compensated advanced chronic liver disease. *Shear wave velocity greater than 2.4 m/s (Liver Stiffness over 17 kPa): Suggestive of clinically significant portal hypertension. QUALITY OF DATA SET: *IQR/Median value equal or less than 0.30 implies a quality data set. *IQR/Median value over 0.30 implies a poor quality data set. SIGNIFICANT CHANGE FROM PRIOR EXAM: Significant change if liver stiffness measurement is 10% or greater from prior exam. OTHER CONSIDERATIONS: The stage of liver fibrosis may be overestimated in the setting of acute hepatitis, liver inflammation, elevated liver function tests, hepatic vascular congestion, obstructive cholestasis, non-fasting state, and infiltrative diseases such as amyloidosis and lymphoma. In some patients with NAFLD, the liver stiffness thresholds for compensated advanced chronic liver disease may be lower. In causes other than viral hepatitis and NAFLD, liver stiffness thresholds are not well established. 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 Frances [...] ORALLY 30 DAYS Oral for 30 Active Omeprazole 20 MG 1 Orally Once a day every morning for 30 days 02/24/2025 Active Immunizations Vaccine Route Administration Date Status [...] Problem Status W/U Status Risk Notes Problem 166140037 Encounter for screening for malignant neoplasm of colon (Z12.11) Active confirmed Problem 298530606 Family history of colonic polyps (Z83.71) Active confirmed Problem Fatty liver (955549717) Fatty liver (K76.0) Active confirmed Problem Erosive esophagitis (67146498) Erosive esophagitis (K22.10) Active confirmed Problem 690793161 Esophageal ring (K22.2) Active confirmed Problem 38037531 Esophageal dysphagia (R13.10) Active confirmed Vital Signs Temperature 98.4 degrees Fahrenheit 11/19/2024 Blood pressure diastolic 01 mm Hg 11/19/2024 Height 65 in 11/19/2024 Blood pressure systolic 001 mm Hg 11/19/2024 Weight 259.6 lbs 11/19/2024 BMI 43.19 kg/m2 11/19/2024 Procedures Procedure Date Ordered Date Performed Result Body Sit e UPPER GI ENDOSCOPY 11/19/2024 N/A COLONOSCOPY 11/19/2024 N/A Encounters Encounter Location Date Provider Diagnosis [facility] [place] [facility] [address] [place] [phone] 02/23/2025 Rick Frances [facility] [address] [place] [phone] 11/19/2024 Rick Frances Encounter for screening for malignant neoplasm of colon Z12.11 ; Erosive esophagitis K22.10 ; Family history of colonic polyps Z83.71 ; Family history of colon cancer Z80.0 ; Fatty liver K76.0 and Elevated liver function tests R79.89 [facility] [address] [place] [phone] 11/19/2024 Rick Frances [facility] [address] [place] [phone] 02/20/2025 Rick Frances [facility] [address] [place] [phone] 02/24/2025 Rick Frances Assessments Encounter Date Diagnosis (ICD [...] ENDOSCOPY 11/19/2024 COLONOSCOPY 11/19/2024 LIVER PROFILE 11/19/2024 Pathology 02/23/2025 US abdomen comp w elastography Future Test Test Name Order Date UPPER GI ENDOSCOPY BALLOOON DILATION OF ESOPH 05/09/2012 UPPER GI ENDOSCOPY BALLOOON DILATION OF ESOPH 08/13/2018 COLONOSCOPY 08/13/2018 Insurance Providers Payer Name Payer Address Payer Phone Subscriber Number Group Number Insured Name Patient Relationship to Insured Coverage Start Date Coverage End Date [facility] [address] [place] [address] [id number] CECY DILLON Self - patient is the insured Medical (General) History Medical History History ICD Code Hyperplastic colon polyps-colonoscopy 2010 Sleep apnea-uses a CPAP mask Asthma Bronchitis Denies [place],DM,CVA,renal disease EGD with balloon dilation in 05/2012-sma [...]
[2025-03-06 10:22] LABS: MANUAL DIFF FLAG NO
[2025-03-06 10:25] LABS: Hematocrit 41.4 % (42.0-52.0); Hemoglobin 14.9 g/dl (14.0-18.0); Imm Gran Abs Auto 0.01 X10*3/uL (0.00-0.03); Imm Gran Pct Auto 0.2 % (0.0-0.4); Lymphocytes Absolute Auto 1.3 X10*3/uL (1.2-4.9); Mean Corpuscular HGB Conc 36.0 g/dl (31.0-36.0); Mean Corpuscular Hemoglobin 31.2 pg (27.0-33.0); Mean Corpuscular Volume 86.8 fL (80.0-98.0); NRBC Abs Auto 0.000 X10*3/uL (0.0-0.012); NRBC Pct Auto 0.0 /100WBC (0.0-0.2); Platelet Count 216 X10*3/uL (160-400); Red Blood Count 4.77 X10*6/uL (4.60-5.80); White Blood Count 6.5 X10*3/uL (4.8-10.8)
[2025-03-06 10:30] LABS: Appearance Urine Clear; Glucose Urine UA Negative (Negative); PH 6.0 (5.0-9.0); Specific Gravity - Urine >= 1.030 (1.005-1.025)
[2025-03-06 11:12] LABS: Alanine Aminotransferase 53 U/L (0-40); Albumin Level 4.6 g/dL (3.5-5.0); Alkaline Phosphatase 61 U/L (39-117); Anion Gap 10 (12-20); Aspartate Amino Transferase 33 U/L (5-37); Blood Urea Nitrogen 30 mg/dL (9-16); Calcium 9.6 mg/dL (8.4-10.2); Carbon Dioxide 25 mmol/L (22-29); Chloride 110 mmol/L (96-108); Cholesterol 166 mg/dL (<200); Estimated Glomerular Filt Rate > 60; HDL Cholesterol 49 mg/dL (>40); Potassium 4.6 mmol/L (3.3-5.1); Sodium 140 mmol/L (135-145); Total Protein 7.1 g/dL (6.5-8.0); Triglycerides 76 mg/dL (<150)
== END 2025-03-06 08:59 | disposition home or self-care (01) ==
LOC: HO.10HDL 08:58
PROVIDERS: Visit Provider Internal Medicine
DX: Z00.00 Encounter for general adult medical examination without abnormal findings (principal); D64.9 Anemia, unspecified; E78.00 Pure hypercholesterolemia, unspecified; E55.9 Vitamin D deficiency, unspecified; R63.4 Abnormal weight loss; R73.9 Hyperglycemia, unspecified; R30.0 Dysuria; Z12.5 Encounter for screening for malignant neoplasm of prostate
CPT/HCPCS: 36415; 80053; 80061; 81003; 82306; 82533; 83036; 84153; 84443; 85025; 86140

== ENCOUNTER 2025-03-16 04:23 | Emergency (ER) | payer BC, SELFPAY ==
--- OUTSIDE RECORDS SUMMARY | 2025-02-23 05:40 | XMS_ITS ---
Author Organization [facility] Address [address] [place] [address] Care Team Providers Care Crate Repairer Name Role Phone Nishant Marvin MD Primary Care Provider UnaRick Fishman [phone] REASON FOR VISIT screening colon Encounters Encounter Location Date Provider Diagnosis [facility] [place] [address] [facility] [place] [phone] 02/23/2025 Rick Frances Plan Of Treatment No Information Progress Notes * CECY DILLONDOB:[birth year] (54 yo M)Acc No.[id number]:02/23/2025 EGD and COL/MAC Patient: CECY SURESH Provider: Sean Frances MD :1970 A ge:54 Y S ex:Male Date:02/23/2025 Address:[address] [place] [address] [place] Pcp:Nishant Marvin MD Subjective: * Chief Complaints: [...] 02/23/2025 Generated for Printi ng/Faavisg/eTransmitting on: 1 06:05 AM EDT
[2025-03-16 04:25] VITALS: BP 182/90; PULSE 75; RESP 20; O2SAT 97; BMI 40.3
[2025-03-16 05:28] LABS: MANUAL DIFF FLAG NO
[2025-03-16 05:29] LABS: Hematocrit 44.1 % (42.0-52.0); Hemoglobin 15.4 g/dl (14.0-18.0); Imm Gran Abs Auto 0.01 X10*3/uL (0.00-0.03); Imm Gran Pct Auto 0.1 % (0.0-0.4); Lymphocytes Absolute Auto 1.3 X10*3/uL (1.2-4.9); Mean Corpuscular HGB Conc 34.9 g/dl (31.0-36.0); Mean Corpuscular Hemoglobin 30.6 pg (27.0-33.0); Mean Corpuscular Volume 87.7 fL (80.0-98.0); NRBC Abs Auto 0.000 X10*3/uL (0.0-0.012); NRBC Pct Auto 0.0 /100WBC (0.0-0.2); Platelet Count 244 X10*3/uL (160-400); Red Blood Count 5.03 X10*6/uL (4.60-5.80); White Blood Count 8.7 X10*3/uL (4.8-10.8)
[2025-03-16 05:31] LABS: Appearance Urine Clear; Glucose Urine UA Negative (Negative); PH 6.0 (5.0-9.0); Specific Gravity - Urine 1.015 (1.005-1.025)
[2025-03-16 05:42] LABS: IDNOW Serial# 55D5AD1C; Influenza B2 Negative (Negative)
[2025-03-16 05:43] LABS: COVID-19 Test Negative (Negative); IDNOW Serial# 58CA691E
[2025-03-16 05:44] LABS: Cannabinoid Screen Urine Not Detected (Not Detect)
[2025-03-16 05:52] LABS: Alanine Aminotransferase 56 U/L (0-40); Albumin Level 4.8 g/dL (3.5-5.0); Alkaline Phosphatase 65 U/L (39-117); Anion Gap 14 (12-20); Aspartate Amino Transferase 42 U/L (5-37); Blood Urea Nitrogen 19 mg/dL (9-16); Calcium 9.6 mg/dL (8.4-10.2); Carbon Dioxide 23 mmol/L (22-29); Chloride 107 mmol/L (96-108); Creatinine Clr Calc Pharmacy 100.1; Estimated Glomerular Filt Rate > 60; Potassium 4.0 mmol/L (3.3-5.1); Sodium 140 mmol/L (135-145); Total Protein 7.3 g/dL (6.5-8.0)
--- OUTSIDE RECORDS SUMMARY | 2025-03-16 06:06 | XMS_ITS | Patient Health Record ---
Author Organization [facility] Address [address] [place] [address] Care Team Providers Care Seamer Panty Hose Name Role Phone Yon LEYVA, Nishant Primary Care Provider Unava Rick Lilly [phone] Allergies Allergen (clinical drug ingredient) Drug/Non Drug Allergy documented on EMR Reaction Allergy Type Onset Date Status Penicillin Unknown Drug Allergy Active dogs, cats,dust,mold,grass and cranberrys (uncoded) Unknown Allergy Active Latex latex (uncoded) Unknown Allergy Acti ve Results Component Value Reference Range Notes Liver Panel Reviewed date:02/22/2025 04:29:12 PM Interpretation: Performing Lab:[facility], [address] [place] [phone] Notes/Report: Bilirubin Total 0.9 0.0-1.0 mg/dL Bilirubin Direct 0.3 0.0-0.5 mg/dL Aspartate Amino Transferase 32 5-37 U/L Alanine Aminotransferase 40 0-40 U/L Total Protein 6.3 6.5-8.0 g/dL Albumin Level 4.0 3.5-5.0 g/dL Alkaline Phosphatase 51 39-117 U/L US abdomen comp w elastograp hy Reviewed date:02/22/2025 04:31:23 PM Interpretation: Performing Lab: Notes/Report: [address] [address] Ultrasound Report Signed with Addenda Patient: Cecy Dillon MR#: [id number] 473 : 1970 Acct:[id number] Age/Sex: 54 / M ADM Date: 01/07/25 Loc: HO.US Attending Dr: Rick Frances MD Ordering Physician: Rick Frances MD Date of Service: 01/07/25 Procedure(s): US abdomen comp w elastography Accession Number(s): [id number] cc: Nishnat Marvin MD; Rick Frances MD Reason for [...] signed by Rick Loya MD in OV> 01/07/2555 DD/ TD/TT: 01/07/25 0833 Superintendent Of Generation: Pathology (Not yet reviewed by provider) Interpretation: Performing Lab:[facility], [address] [place] [phone] Notes/Report: Reason For Referral Referring Provider First Name Nishant Referring Provider Last Name Yon Referring Provider Speciality Internal M edicine Referred Organization [facility] Referred Provider Rick Frances Referred Address [address] [place] [phone], Referred Provider Specialty Gastroentero logy General Notes requested [facility] for visit with Dr. Frances on 11-19-[address] Marvin's office dated 11-19-24 Referral Priority Routine Medications Medication SIG (Take, Route, Frequency, Duration) Notes Start Date End Date Status ProAir HFA 108 (90 Base) MCG/ACT USE 2 PUFFS 4 TIMES A DAY NEEDED INHALATION 30 DAYS Inhalation; Duration: 25 Active Albuterol Sulfate Ac tive Topiramate 25 MG TAKE 1 TABLET BY PEYTON TH EVERY DAY FOR 30 DAYS Oral; Duration: 30 Days Active Montelukast Sodium 10 MG TAKE 1 TABLET A T BEDTIME ONCE A DAY ORALLY 30 DAYS Oral; Duration: 30 Active Omeprazole 20 MG 1 Orally Once a day every morning; Duration: 30 days 02/24/2025 Active Immunizations Vaccine Route [...] Problem Status W/U Status Risk Notes Problem Screening for malignant neoplasm of colon (884524160) Encounter for screening for malignant neoplasm of colon (Z12.11) Active confirmed Problem Family history of polyp of colon (707786325) Family history of colonic polyps (Z83.71) Active confirmed Problem Fatty liver (815802881) Fatty liver (K76.0) Active confirmed Problem Erosive esophagitis (62945916) Erosive esophagitis (K22.10) Active confirmed Problem Esophageal ring (80851684) Esophageal ring (K22.2) Active confirmed Problem Esophageal dysphagia (04863605) Esophageal dysphagia (R13.10) Active confirmed Vital Signs Temperature 98.4 degrees Fahrenheit 11/19/2024 Blood pressure diastolic 01 mm Hg 11/19/2024 Height 65 in 11/19/2024 Blood pressure systolic 001 mm Hg 11/19/2024 Weight 259.6 lbs 11/19/2024 BMI 43.19 kg/m2 11/19/2024 Procedures Procedure Date Ordered Date Performed Result Body Sit e UPPER GI ENDOSCOPY 11/19/2024 N/A COLONOSCOPY 11/19/2024 N/A Encounters Encounter Location Date Provider Diagnosis [facility] [place] Out[place] [address] [place] [phone] 02/23/2025 Rick Frances [facility] [address] [place] [phone] 11/19/2024 Rick Frances Encounter for screening for malignant neoplasm of colon Z12.11 ; Erosive esophagitis K22.10 ; Family history of colonic polyps Z83.71 ; Family history of colon cancer Z80.0 ; Fatty liver K76.0 and Elevated liver function tests R79.89 [facility] [address] [place] [phone] 11/19/2024 Rick Frances [facility] [address] [place] [phone] 02/20/2025 Rick Frances [facility] [address] [place] [phone] 02/24/2025 Rick Frances Assessments Encounter Date Diagnosis [...] Insured Coverage Start Date Coverage End Date [facility] [address] [place] [address] [id number] CECY DILLON Self - patient is the insured Medical (General) History Medical History History ICD Code Hyperplastic colon polyps-colonoscopy 2010 Sleep apnea-uses a CPAP mask Asthma Bronchitis Denies [place],DM,CVA,renal disease EGD with balloon dilation in 05/2012-sma [...]
--- NOTE | 2025-03-16 06:13 | PC.NURSE ---
medicated per mar.
--- NOTE | 2025-03-16 06:30 | PC.NURSE ---
Pt denies HI/SI, change manager and belongings completed.
--- NOTE | 2025-03-16 06:53 | PC.NURSE ---
report given to BLADE Vasquez.
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
[2025-03-16 07:27] VITALS: BP 136/85; PULSE 91; RESP 16; TEMP 36.9; O2SAT 98
--- NOTE | 2025-03-16 07:39 | PC.NURSE ---
patient presently sleeping, rr equal/non labored, per prior nurse report pt denies si/hi, vss, call plata within reach, plan of care ongoing
--- NOTE | 2025-03-16 09:59 | MHC.CARE ---
Pt does not present as an imminent risk and does not meet the criteria for a higher level of care. Pt will be discharged to follow up with current providers. ED provider in agreement.
[2025-03-16 10:35] VITALS: BP 138/88; PULSE 88; RESP 16; TEMP 36.7; O2SAT 98
== END 2025-03-16 10:36 | disposition home or self-care (01) ==
PROVIDERS: Emergency Medicine; Emergency Provider Emergency Medicine; PCP Internal Medicine
DX: F41.9 Anxiety disorder, unspecified (principal); F10.10 Alcohol abuse, uncomplicated; R45.3 Demoralization and apathy
CPT/HCPCS: 80053; 80307; 81001; 84443; 85025; 87502; 87635; 99285; S9485

== ENCOUNTER 2025-03-17 09:32 | Outpatient (AMB) | payer BC, SELFPAY ==
--- OUTSIDE RECORDS SUMMARY | 2025-02-23 05:40 | XMS_ITS ---
Author Organization [facility] Address [address] [place] [address] Care Team Providers Care Roll Wrapper Name Role Phone Nishant Marvin MD Primary Care Provider UnaRick Fishman [phone] REASON FOR VISIT screening colon Encounters Encounter Location Date Provider [place] [facility] [place] [address] [facility] [place] [id number] 02/23/2025 Rick Frances Plan Of Treatment No Information Progress Notes * CECY DILLONDOB:[birth year] (54 yo M)Acc No.[id number]:02/23/2025 EGD and COL/MAC Patient: CECY SURESH Provider: Sean Frances MD :1970 A ge:54 Y S ex:Male Date:02/23/2025 Address:[address] [place] [address] [place] Pcp:Nishant Marvin MD Subjective: * Chief Complaints: [...] 02/23/2025 Generated for Printi ng/Faavisg/eTransmitting on: 1 10:34 AM EDT
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
[2025-03-17 09:39] VITALS: BP 138/86; PULSE 83; TEMP 36.1; O2SAT 99; BMI 40.7
--- OUTSIDE RECORDS SUMMARY | 2025-03-17 10:35 | XMS_ITS | Patient Health Record ---
Author Organization [facility] Address [address] [place] [address] Care Team Providers Care Latent Fingerprint Examiner Name Role Phone Yon LEYVA, Nishant Primary Care Provider Unava Rick Lilly [phone] Allergies Allergen (clinical drug ingredient) Drug/Non Drug Allergy documented on EMR Reaction Allergy Type Onset Date Status Penicillin Unknown Drug Allergy Active dogs, cats,dust,mold,grass and cranberrys (uncoded) Unknown Allergy Active Latex latex (uncoded) Unknown Allergy Acti ve Results Component Value Reference Range Notes Liver Panel Reviewed date:02/22/2025 04:29:12 PM Interpretation: Performing Lab:[facility], [address] [place] [id number] Notes/Report: Bilirubin Total 0.9 0.0-1.0 mg/dL Bilirubin Direct 0.3 0.0-0.5 mg/dL Aspartate Amino Transferase 32 5-37 U/L Alanine Aminotransferase 40 0-40 U/L Total Protein 6.3 6.5-8.0 g/dL Albumin Level 4.0 3.5-5.0 g/dL Alkaline Phosphatase 51 39-117 U/L US abdomen comp w elastograp hy Reviewed date:02/22/2025 04:31:23 PM Interpretation: Performing Lab: Notes/Report: [address] [address] Ultrasound Report Signed with Addenda Patient: Cecy Dillon MR#: [id number] : 1970 Acct:[id number] Age/Sex: 54 / M ADM Date: 01/07/25 Loc: HO.US Attending Dr: Rick Frances MD Ordering Physician: Rick Frances MD Date of Service: 01/07/25 Procedure(s): US abdomen comp w elastography Accession Number(s): [id number] cc: Nishant Marvin MD; Rick Frances MD [...] in OV> 01/07/2555 DD/ TD/TT: 01/07/25 0833 Napper Grinder: Pathology (Not yet reviewed by provider) Interpretation: Performing Lab:[facility], [address] [place] [id number] Notes/Report: Reason For Referral Referring Provider First Name Nishant Referring Provider Last Name Yon Referring Provider Speciality Internal M edicine Referred Organization [facility] Referred Provider Rick Frances Referred Address [address] [place] [id number], Referred Provider Specialty Gastroentero logy General Notes requested [facility] for visit with Dr. Frances on [...] Problem Screening for malignant neoplasm of colon ([id number]) Encounter for screening for malignant neoplasm of colon (Z12.11) Active confirmed Problem Family history of polyp of colon (194959167) Family history of colonic polyps (Z83.71) Active confirmed Problem Fatty liver (738489942) Fatty liver (K76.0) Active confirmed Problem Erosive esophagitis (62049536) Erosive esophagitis (K22.10) Active confirmed Problem Esophageal ring (25425703) Esophageal ring (K22.2) Active confirmed Problem Esophageal dysphagia (22849643) Esophageal dysphagia (R13.10) Active confirmed Vital Signs Temperature 98.4 degrees Fahrenheit 11/19/2024 Blood pressure diastolic 01 mm Hg 11/19/2024 Height 65 in 11/19/2024 Blood pressure systolic 001 mm Hg 11/19/2024 Weight 259.6 lbs 11/19/2024 BMI 43.19 kg/m2 11/19/2024 Procedures Procedure Date Ordered Date Performed Result Body Sit e UPPER GI ENDOSCOPY 11/19/2024 N/A COLONOSCOPY 11/19/2024 N/A Encounters Encounter Location Date Provider Diagnosis [facility] Outpatient [address] [place] [id number] 02/23/2025 Rick Frances [facility] [address] [place] [phone] 11/19/2024 Rick Frances Encounter for screening for malignant neoplasm of colon Z12.11 ; Erosive esophagitis K22.10 ; Family history of colonic polyps Z83.71 ; Family history of colon cancer Z80.0 ; Fatty liver K76.0 and Elevated liver function tests R79.89 [facility] [address] [place] [phone] 11/19/2024 Rick Frances [facility] [address] [place] [phone] 02/20/2025 Rick Frances [facility] [address] [place] [phone] 02/24/2025 Rick Frances Assessments Encounter Date Diagnosis [...] Insured Coverage Start Date Coverage End Date [facility] [employer] [address] [place] [address] [phone] [id number] CECY DILLON Self - patient is the insured Medical (General) History Medical History History ICD Code Hyperplastic colon polyps-colonoscopy 2010 Sleep apnea-uses a CPAP mask Asthma Bronchitis Denies VA,DM,CVA,renal disease EGD with balloon dilation in 05/2012-sma [...]
== END 2025-03-17 10:30 | disposition home or self-care (01) ==
LOC: HO.HMCH 09:33
PROVIDERS: PCP Internal Medicine; Visit Provider Internal Medicine
DX: F41.9 Anxiety disorder, unspecified (principal)

== ENCOUNTER → 2025-03-17 09:32 | Outpatient (BNVA) | payer BC, SELFPAY | PROVIDERS: PCP Internal Medicine; Visit Provider Internal Medicine | DX: I10 Essential (primary) hypertension (principal); F32.A Depression, unspecified; F90.9 Attention-deficit hyperactivity disorder, unspecified type; G43.909 Migraine, unspecified, not intractable, without status migrainosus; F41.9 Anxiety disorder, unspecified; Z79.899 Other long term (current) drug therapy | CPT/HCPCS: 96127 ==

== ENCOUNTER 2025-03-24 17:05 | Outpatient (AMB) | payer BC, SELFPAY ==
--- OUTSIDE RECORDS SUMMARY | 2025-02-23 05:40 | XMS_ITS ---
Author Organization [facility] Address [address] [place] [address] Care Team Providers Care Duplicator Punch Operator Name Role Phone Nishant Marvin MD Primary Care Provider UnaRick Fishman [phone] REASON FOR VISIT screening colon Encounters Encounter Location Date Provider Diagnosis [facility] [place] [address] [facility] [place] [id number] 02/23/2025 Rick Frances Plan Of Treatment No Information Progress Notes * CECY DILLONDOB:[birth year] (54 yo M)Acc No.[id number]:02/23/2025 EGD and COL/MAC Patient: CECY SURESH Provider: Sean Frances MD :1970 A ge:54 Y S ex:Male Date:02/23/2025 Address:[address] [place] [address] [place] Pcp:Nishant Marvin MD Subjective: * Chief Complaints: [...] MD Date: 0 02/23/2025 Generated for Printi ng/Faavisg/eTransmitting on: 1 09:13 PM EDT
[2025-03-24 17:09] VITALS: BP 132/62; PULSE 76; RESP 18; TEMP 36.3; O2SAT 98; BMI 39.6
--- NOTE | 2025-03-24 17:09 | A.OFFPC_ITS ---
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 Accompanied by: Self / Same As Patient Allergies animal dander Allergy (Intermediate, Verified 03/24/25 17:34) WHEEZING banana Allergy (Intermediate, Verified 03/24/25 17:34) ITCHY THROAT, WHEEZING environmental allergies Allergy (Intermediate, Verified 03/24/25 17:34) Wheezing latex Allergy (Intermediate, Verified 03/24/25 17:34) WHEEZY Penicillins Allergy (Intermediate, Verified 03/24/25 17:34) Hives topiramate Allergy (Intermediate, Verified 03/24/25 17:34) Rash cranberry (Cranberry) Allergy (Mild, Verified 03/24/25 17:34) WHEEZING Medication List - Last Reconciled 03/24/25 by Nishant Marvin MD albuterol sulfate 90 mcg/actuation 2 puffs inhalation Q6H PRN bupropion HCl SR (Wellbutrin SR) 150 mg PO DAILY [CPAP device As directed] [CPAP SUPPLIES (MASK, FILTERS, HOSES and HEADGEAR) As directed] montelukast 10 mg PO QPM verapamil 120 mg PO BEDTIME Tobacco use date assessed: 03/24/25 Dental Screening Dental Screen Date: 03/24/25 Did you have a dental visit in the last 12 months?: Yes Did you have a dental problem in the last 6 months where you did not have access to dental care?: No Was dental information given to patient?: Patient has dentist HPI annual exam HPI Details Patient comes in today for his annual physical examination States that he currently feels okay and reports that he has been doing much better with his anxiety and mood disorder and he feels more like himself again ever since he was started on Bupropion SR even though it has only been about a week since he began taking the medication He denies any headaches or dizziness Denies any chest pains, no increased shortness of breath although is noted to be forcefully coughing every now and then during his visit to the office today, as if he is trying to clear out something from his chest or his lungs No nausea/vomiting, no abdominal pain No change in bowel habits noted He denies any acute urinary symptoms Needs his Hydroxyzine Rx refilled He had some follow-up labs done over the past few weeks, including some labs done when he went to the emergency room about a week ago He had his screening colonoscopy last done with Dr. Frances last month on 02/23/2025 - was advised to have a repeat colonoscopy in 5 years due to his positive family history of colon cancer [facility] Medical History (Updated 03/25/25 @ 06:16 by Nishant Marvin MD) Concussion Essential hypertension Obesity (BMI 30-39.9) Obstructive sleep apnea Allergic rhinitis Migraine equivalent syndrome Asthma Surgical History (Updated 03/25/25 @ 06:00 by Nishant Marvin MD) Hx of myringotomy History of tonsillectomy and adenoidectomy History of hernia surgery Status post colonoscopy Status post balloon dilatation of esophageal stricture (~05/09/12) Family History Father Mental health disorder Mother High blood pressure High cholesterol Cancer COPD (chronic obstructive pulmonary disease) Social History Housing: House Alcohol intake: current Alcohol intake frequency: a few times a week Alcohol type: beer and hard liquor Patient Tobacco Use Status: Never used Tobacco e-Cigarette/Vaping Use: Never Used Second Hand Smoke Exposure: No service: No Current occupational status: employed Cognitive needs: No Hearing needs: No Vision needs: No Questionnaire PHQ-9 Over the last 2 weeks, how often have you been bothered by any of the following problems? Depression Screening Interpretation: Negative Depression Screening Done: Yes Source: Developed by Drs. Rick Fuller, Jasmin Berger, Jaiden Hudson and colleagues, with an educational jason from [employer]. Thrive Questionnaire Date Thrive assessed: 03/17/25 I am a: Patient What is your living situation today?: I have a steady place to live Within the past 12 months, did the food you bought not last and you didn't have the money to get more?: Never true Within the past 12 months, did you worry whether your food would run out before you got money to buy more?: Never true Do you have trouble paying for medicines?: No Do you have trouble getting transportation to medical appointments?: No Do you have trouble paying your heating and electricity bill?: No Do you have trouble taking care of your child, family member or friend?: No Do you have trouble with day-to-day activities such as bathing, preparing meals, shopping, managing finances, etc.?: No Are you currently unemployed and looking for a job?: No Are you interested in more education?: No Please select the resources that you would like help with: None Currently or been in a relationship where the following occur: No concerns reported THRIVE Score: 0 OTILIA-7 AMB Questionnaire OTILIA-7 Date OTILIA - 7 assessed: 03/17/25 Source: Developed by Drs. Rick Fuller, Jasmin Berger, Jaiden Hudson and colleagues, with an educational jason from [employer]. Review of Systems Const Denies chills, Denies fatigue, Denies fever(s), Denies headache(s), Denies malaise and Denies weakness Eyes Denies blurry vision, Denies change in vision, Denies irritation and Denies itchy eyes ENT Denies dysphagia, Denies dizziness, Denies otalgia, Denies headache(s), Denies nasal congestion, Denies neck pain, Denies odynophagia and Denies sore throat Card Denies chest pain, Denies rapid heart rate, Denies irregular heart rhythm, Denies palpitations and Denies dyspnea Resp Denies chest congestion, Reports cough (he is noted to be forcefully coughing repeatedly), Denies dyspnea and Denies wheezing GI Denies abdominal pain, Denies bloating, Denies constipation, Denies dysphagia, Denies heartburn, Denies diarrhea, Denies nausea, Denies odynophagia and Denies vomiting Denies hematuria, Denies difficulty urinating, Denies dysuria, Denies urinary frequency and Denies urinary urgency Musc Denies back pain, Denies arthralgias, Denies joint swelling, Denies muscle weakness and Denies neck pain Skin/Breast Denies change in pigmentation, Denies lesions, Denies rash and Denies unusual bruising Neuro Denies dizziness, Denies headache(s), Denies paresthesias and Denies weakness Psych Reports anxiety (better on current Rx) and Reports depression (better on current Rx) Endo Denies fatigue and Denies palpitations Aller/Immun Denies itchy eyes and Denies wheezing Physical exam (Primary Care) Vital Signs: Last Vital Signs Temp 97.3 F 03/24/25 17:09 Pulse 76 03/24/25 17:09 Resp 18 03/24/25 17:09 BP 132/62 03/24/25 17:09 Pulse Ox 98 03/24/25 17:09 Oxygen Delivery Method Room Air 03/24/25 17:09 BMI result Body Mass Index 39.6 Tobacco/Smoking Status: Tobacco use Status Tobacco use date assessed 03/24/25 03/24/25 17:19 Patient Tobacco Use Status Never used Tobacco 03/24/25 17:09 e-Cigarette/Vaping Use Never Used 03/24/25 17:09 Depression Screening Interpretation: Negative Thrive Assessment: Date of Thrive Assessment Date Thrive assessed 03/17/25 03/24/25 17:09 Currently or been in a relationship where the following occur: No concerns reported Const General: no acute distress, alert and awake Orientation/consciousness: patient oriented x3 HENMT Head: Yes normocephalic and Yes atraumatic Ears: external ears normal, TM's normal bilaterally and EAC's normal General nose exam: No nasal discharge present Face and sinus: Yes normal facial exam and Yes sinuses nontender Teeth and gingiva: dentition normal Throat: Yes posterior oropharynx normal and Yes tonsils normal (no TP congestion) Eyes Eyelids: Yes eyelids normal Conjunctivae: conjunctivae normal Pupils: Equal, round and reactive pupils present EOM: EOMs intact bilaterally Neck Neck: Yes supple and No lymphadenopathy Thyroid: Thyroid normal Resp Auscultation: no crackles, no rales and wheezes (faint) expiratory wheezes and upper bilaterally Cardio Rate: regular rate Rhythm: regular rhythm Heart sounds: no murmurs GI Palpation (GI): Soft to palpation, nontender and No hepatosplenomegaly present Auscultation: normal bowel sounds General: Yes no CVA tenderness Back/Spine/Pelvis Back: no CVA tenderness Thoracic/Lumbar Spine: thoracic and lumbar spine normal to inspection Skin Lesions: no lesions Rashes: no rashes Neuro General: patient oriented x3, moves all extremities, no focal motor deficits and CN's II-XI intact bilaterally Cranial nerves: Yes Equal, round and reactive pupils present Cognition (Neuro): normal cognition Gait exam (Neuro): Normal gait present Extrem General: Yes no clubbing, cyanosis or edema Results Reviewed Results Reviewed: Laboratory Tests 03/06/25 03/16/25 03/16/25 09:04 05:16 05:18 WBC 8.7 Hgb 15.4 Hct 44.1 Plt Count 244 Sodium 140 Potassium 4.0 Creatinine 0.91 Estimated GFR > 60 Fasting Glucose 96 Hemoglobin A1c % 4.8 Calcium 9.6 AST 42 H ALT 56 H Triglycerides 76 Cholesterol 166 LDL Cholesterol, Calc 102 H HDL Cholesterol 49 PSA Screen 3.07 25-OH Vitamin D Total 39.2 TSH 1.69 Random Cortisol 8.6 Ur Specific [place] 1.015 Urine Protein Negative Urine Glucose (UA) Negative Urine Blood Negative Urine Nitrite Negative Ur Leukocyte Esterase Negative Coding Level of Care Code Est Pt Prev Care 40-64y(20715) Diagnoses Annual physical exam Z00.00 Migraine equivalent syndrome G43.109 Essential hypertension I10 Mild intermittent asthma without complication J45.20 Asthma severity: mild Asthma persistence: intermittent Asthma complication type: uncomplicated Allergic rhinitis, unspecified seasonality, unspecified trigger J30.9 Allergic rhinitis trigger: unspecified Allergic rhinitis seasonality: unspecified Elevated LFTs R79.89 Obstructive sleep apnea G47.33 Anxiety F41.9 Morbid obesity with BMI of 40.0-44.9, adult E66.01; Z68.41 Assessment & Plan Assessment & Plan (1) Annual physical exam: Code(s): Z00.00 - Encounter for general adult medical examination without abnormal findings Category: Medical Plan: Results of his labs done over the past few weeks reviewed and discussed with patient He had his screening colonoscopy last done with Dr. Frances last month on 02/23/2025 - was advised to have a repeat colonoscopy in 5 years due to his (+) family history of colon cancer (2) Migraine equivalent syndrome: Comment: CT brain WO at [facility] [place] in Aug 2024: Mild cortical FP atrophy CT brain WO at [facility] [place] in May 2017: WNL CT brain WO IV contrast at [facility] [place] on August 062024: WNL Code(s): G43.109 - Migraine with aura, not intractable, without status migrainosus Category: Medical Plan: Reinforced avoidance of any potential migraine triggers Continue Verapamil 120 mg Q HS for headache prophylaxis - topiramate was previously stopped due to allergy (rash) Follow up with neurology as scheduled (3) Essential hypertension: Code(s): I10 - Essential (primary) hypertension Category: Medical Plan: Reinforced low sodium diet - goal is systolic BP of 120 mm or less and diastolic BP of 85 mm or less Patient has declined offers to start him on BP meds in the past as he states that he prefer to work on losing weight first He was however started on Verapamil by neurology for migraine headache prophylaxis and this also appears to be helping with his blood pressure Patient is reminded to continue monitoring his blood pressure regularly (4) Asthma: Code(s): J45.909 - Unspecified asthma, uncomplicated Category: Medical Qualifiers: Asthma severity: mild Asthma persistence: intermittent Asthma complication type: uncomplicated Qualified Code(s): J45.20 - Mild intermittent asthma, uncomplicated Plan: Have advised patient that his repeated coughing and the faint expiratory wheezing noted on exam today indicates that his asthma is currently not well- controlled He is presently on Montelukast 10 mg Q PM and Albuterol HFA 1 to 2 inhalations Q 6 hours only as needed - have advised him to start using his Albuterol inhaler regularly instead of as needed for the next few days to see if this will get his asthma back under better control and if not, we may need to start him on a short course of prednisone (5) Allergic rhinitis: Code(s): J30.9 - Allergic rhinitis, unspecified Category: Medical Qualifiers: Allergic rhinitis trigger: unspecified Allergic rhinitis seasonality: unspecified Qualified Code(s): J30.9 - Allergic rhinitis, unspecified Plan: Continue Montelukast 10 mg Q PM Have reminded him again that he can also take OTC Claritin (Loratadine) 10 mg QD or Cetirizine 10 mg QD if needed He was getting allergy injections from Dr. Gamboa in the past but has not gotten any shots in the past few years (6) Elevated LFTs: Code(s): R79.89 - Other specified abnormal findings of blood chemistry Category: Medical Plan: Have cautioned patient that his LFTs were slightly elevated when he had labs done at the ER last week - his LFTs were normal when he went for his follow-up labs done at the beginning of this month Patient admitted that he was drinking some alcohol over the past week or two when he was having problems with his anxiety and mood but states that he has since stopped drinking alcohol completely after his ER visit last week Will have him recheck his labs, including his LFTs, in 4 months for follow-up (7) Obstructive sleep apnea: Code(s): G47.33 - Obstructive sleep apnea (adult) (pediatric) Category: Medical Plan: Continue using his CPAP device when sleeping at night daily Feels that his CPAP therapy has helped him a lot as he feels more alert during the day (8) Anxiety: Code(s): F41.9 - Anxiety disorder, unspecified Category: Medical Plan: Continue Bupropion SR 150 mg QD for now - have advised patient that it is too early to determine at this time whether his dose needs to be adjusted further or not Have instructed him to call back in a couple of weeks to request for his medication refill and he may be able to tell at that time if his dose needs to be increased further or not depending on how he feels Per request, we will also refill his Hydroxyzine 25 mg Q HS PRN (9) Morbid obesity with BMI of 40.0-44.9, adult: Code(s): E66.01 - Morbid (severe) obesity due to excess calories; Z68.41 - Body mass index [BMI] 40.0-44.9, adult Category: Medical Plan: Reinforced diet/exercise as tolerated/lose weight - he has been able to lose some weight over the past couple of weeks Plan Follow up in 4 months Orders: Orders Comprehensive [place]. Panel Fast 4 Months E78.00 - Pure hypercholesterolemia, unspecified TSH reflex Free T4 4 Months E78.00 - Pure hypercholesterolemia, unspecified Vitamin D 25-OH Total 4 Months E55.9 - Vitamin D deficiency, unspecified Complete Blood Count Auto Diff 4 Months D64.9 - Anemia, unspecified Liver Panel 4 Months R79.89 - Other specified abnormal findings of blood chemistry UA CC w/rflx Micro + Cult 4 Months R30.0 - Dysuria Medications: New hydroxyzine HCl 25 mg PO BEDTIME PRN 30 tabs 5RF anxiety 30 days
--- OUTSIDE RECORDS SUMMARY | 2025-03-24 21:13 | XMS_ITS | Patient Health Record ---
Author Organization [facility] Address [address] [place] [address] Care Team Providers Care [address] Man Name Role Phone Yon LEYVA, Nishant Primary Care Provider Unava Rick Lilly [phone] Allergies Allergen (clinical drug ingredient) Drug/Non Drug Allergy documented on EMR Reaction Allergy Type Onset Date Status Penicillin Unknown Drug Allergy Active dogs, cats,dust,mold,grass and cranberrys (uncoded) Unknown Allergy Active Latex latex (uncoded) Unknown Allergy Acti ve Results Component Value Reference Range Notes Liver Panel Reviewed date:02/22/2025 04:29:12 PM Interpretation: Performing Lab:[facility], [address] [place] [id number] Notes/Report: Bilirubin Total 0.9 0.0-1.0 mg/dL Bilirubin Direct 0.3 0.0-0.5 mg/dL Aspartate Amino Transferase 32 5-37 U/L Alanine Aminotransferase 40 0-40 U/L Total Protein 6.3 6.5-8.0 g/dL Albumin Level 4.0 3.5-5.0 g/dL Alkaline Phosphatase 51 39-117 U/L US abdomen comp w elastograp hy Reviewed date:02/22/2025 04:31:23 PM Interpretation: Performing Lab: Notes/Report: [address] [address] Ultrasound Report Signed with Addenda Patient: Cecy Dillon MR#: [id number] : 1970 Acct:[id number] Age/Sex: 54 / M ADM Date: 01/07/25 Loc: HO.US Attending Dr: Rick Frances MD Ordering Physician: Rick Francse MD Date of Service: 01/07/25 Procedure(s): US abdomen comp w elastography Accession Number(s): [id number] cc: Nishant Marvin MD; Rick Frances MD [...] in OV> 01/07/2555 DD/ TD/TT: 01/07/25 0833 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 Frances on 11-19-2024 [...] Problem Screening for malignant neoplasm of colon ([id number]) Encounter for screening for malignant neoplasm of colon (Z12.11) Active confirmed Problem Family history of polyp of colon (722624222) Family history of colonic polyps (Z83.71) Active confirmed Problem Fatty liver (364964601) Fatty liver (K76.0) Active confirmed Problem Erosive esophagitis (90763976) Erosive esophagitis (K22.10) Active confirmed Problem Esophageal ring (84998922) Esophageal ring (K22.2) Active confirmed Problem Esophageal dysphagia (33134381) Esophageal dysphagia (R13.10) Active confirmed Vital Signs Temperature 98.4 degrees Fahrenheit 11/19/2024 Blood pressure diastolic 01 mm Hg 11/19/2024 Height 65 in 11/19/2024 Blood pressure systolic 001 mm Hg 11/19/2024 Weight 259.6 lbs 11/19/2024 BMI 43.19 kg/m2 11/19/2024 Procedures Procedure Date Ordered Date Performed Result Body Sit e UPPER GI ENDOSCOPY 11/19/2024 N/A COLONOSCOPY 11/19/2024 N/A Encounters Encounter Location Date Provider Diagnosis [facility] Outpatient [address] [place] [id number] 02/23/2025 Rick Frances [facility] [address] [place] [phone] 11/19/2024 Rick Frances Encounter for screening for malignant neoplasm of colon Z12.11 ; Erosive esophagitis K22.10 ; Family history of colonic polyps Z83.71 ; Family history of colon cancer Z80.0 ; Fatty liver K76.0 and Elevated liver function tests R79.89 [facility] [address] [place] [phone] 11/19/2024 Rick Frances [facility] [address] [place] [phone] 02/20/2025 Rick Frances [facility] [address] [place] [phone] 02/24/2025 Rick Frances Assessments Encounter Date Diagnosis [...] Insured Coverage Start Date Coverage End Date [facility] [employer] [address] [place] [address] [id number] CECY DILLON Self - patient is the insured Medical (General) History Medical History History ICD Code Hyperplastic colon polyps-colonoscopy 2010 Sleep apnea-uses a CPAP mask Asthma Bronchitis Denies IA,DM,CVA,renal disease EGD with balloon dilation in 05/2012-sma [...]
== END 2025-03-24 17:57 | disposition home or self-care (01) ==
LOC: HO.HMCH 17:05
PROVIDERS: PCP Internal Medicine; Visit Provider Internal Medicine
DX: Z00.00 Encounter for general adult medical examination without abnormal findings (principal); G43.109 Migraine with aura, not intractable, without status migrainosus; Z68.41 Body mass index [BMI] 40.0-44.9, adult; E66.01 Morbid (severe) obesity due to excess calories; J45.20 Mild intermittent asthma, uncomplicated; I10 Essential (primary) hypertension; J30.9 Allergic rhinitis, unspecified; R79.89 Other specified abnormal findings of blood chemistry; G47.33 Obstructive sleep apnea (adult) (pediatric); F41.9 Anxiety disorder, unspecified

== ENCOUNTER 2025-04-16 11:21 | Outpatient (AMB) | payer BC, SELFPAY ==
--- OUTSIDE RECORDS SUMMARY | 2025-02-23 04:40 | XMS_ITS ---
Author Organization [facility] Address [address] [place] [address] Care Team Providers Care Roof Bolter Name Role Phone Nishant Marvin MD Primary Care Provider Unava Rick Lilly [phone] REASON FOR VISIT screening colon Encounters Encounter Location Date Provider Diagnosis [facility] [place] [address] [facility] [place] [id number] 02/23/2025 Rick Frances Plan Of Treatment No Information Progress Notes * CECY DILLONDOB:[birth year] (54 yo M)Acc No.[id number]:02/23/2025 EGD and COL/MAC Patient: CECY SURESH Provider: Sean Frances MD :1970 A ge:54 Y S ex:Male Date:02/23/2025 Address:[address] [place] [address] [place] Pcp:Nishant Marvin MD Subjective: * Chief Complaints: * 1 . Screening colon. * Medical History: Objective: * Vitals: Assessment: Plan: * Treatment: * * The named appointment provid er may or may not be the originator of this progress note, and it is not deemed complete until electronically signed by the appointment provider. Sign off status: Pending * Provider: Sean Frances MD Date: 0 02/23/2025 Generated for Printi davon/Sean/eTransmitting on: 06/16/2024 02:29 PM EST
--- NOTE | 2025-04-16 11:42 | A.OFFPC_ITS ---
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 Required: No Accompanied by: Self / Same As Patient Allergies animal dander Allergy (Intermediate, Verified 04/16/25 11:42) WHEEZING banana Allergy (Intermediate, Verified 04/16/25 11:42) ITCHY THROAT, WHEEZING environmental allergies Allergy (Intermediate, Verified 04/16/25 11:42) Wheezing latex Allergy (Intermediate, Verified 04/16/25 11:42) WHEEZY Penicillins Allergy (Intermediate, Verified 04/16/25 11:42) Hives topiramate Allergy (Intermediate, Verified 04/16/25 11:42) Rash cranberry (Cranberry) Allergy (Mild, Verified 04/16/25 11:42) WHEEZING Medication List - Last Reconciled 04/16/25 by Malik Hoyt MD albuterol sulfate 90 mcg/actuation 2 puffs inhalation Q6H PRN bupropion HCl SR (Wellbutrin SR) 150 mg PO DAILY [CPAP device As directed] [CPAP SUPPLIES (MASK, FILTERS, HOSES and HEADGEAR) As directed] hydroxyzine HCl 25 mg PO BEDTIME PRN 30 days montelukast 10 mg PO QPM verapamil 120 mg PO BEDTIME Tobacco use date assessed: 03/24/25 Dental Screening Dental Screen Date: 03/24/25 Did you have a dental visit in the last 12 months?: Yes Did you have a dental problem in the last 6 months where you did not have access to dental care?: No Was dental information given to patient?: Patient has dentist HPI HPI Comments History of Present Illness Details The patient is a 54-year-old male presenting for a follow-up visit regarding his bupropion medication. He reports feeling better on the medication, with his also noticing improvement, and no longer feels a sense of doom and gloom. He also notes improved thinking and clarity, which he associates with treatment for ADD-like symptoms. The patient reports experiencing side effects including dry mouth and headaches, though he is unsure if the headaches are from the medication or a pulled muscle. His sleep was initially disturbed, getting only 3-4 hours per night, but he feels this is starting to improve. On day four of taking the medication, he experienced an episode upon waking where he felt like he was convulsing a little with involuntary movements and twitching for about a minute. He states he has had similar episodes of twitching in the past when he has been in a bad mental state, prior to starting this medication. [facility] Medical History Concussion Essential hypertension Obesity (BMI 30-39.9) Obstructive sleep apnea Allergic rhinitis Migraine equivalent syndrome Asthma Surgical History Hx of myringotomy History of tonsillectomy and adenoidectomy History of hernia surgery Status post colonoscopy Status post balloon dilatation of esophageal stricture (~05/09/12) Family History Father Mental health disorder Mother High blood pressure High cholesterol Cancer COPD (chronic obstructive pulmonary disease) Social History Housing: House Alcohol intake: current Alcohol intake frequency: a few times a week Alcohol type: beer and hard liquor Patient Tobacco Use Status: Never used Tobacco e-Cigarette/Vaping Use: Never Used Second Hand Smoke Exposure: No service: No Current occupational status: employed Cognitive needs: No Hearing needs: No Vision needs: No Questionnaire PHQ-9 Over the last 2 weeks, how often have you been bothered by any of the following problems? Depression Screening Interpretation: Negative Depression Screening Done: Yes Source: Developed by Drs. Rick Fuller, Jasmin Berger, Jaiden Hudson and colleagues, with an educational jason from [employer]. Thrive Questionnaire Date Thrive assessed: 03/17/25 I am a: Patient What is your living situation today?: I have a steady place to live Within the past 12 months, did the food you bought not last and you didn't have the money to get more?: Never true Within the past 12 months, did you worry whether your food would run out before you got money to buy more?: Never true Do you have trouble paying for medicines?: No Do you have trouble getting transportation to medical appointments?: No Do you have trouble paying your heating and electricity bill?: No Do you have trouble taking care of your child, family member or friend?: No Do you have trouble with day-to-day activities such as bathing, preparing meals, shopping, managing finances, etc.?: No Are you currently unemployed and looking for a job?: No Are you interested in more education?: No Please select the resources that you would like help with: None Currently or been in a relationship where the following occur: No concerns reported THRIVE Score: 0 AUDIT C Alcohol Use Questionnaire (AUDIT-C) 1. How often do you have a drink containing alcohol?: Monthly or less 2. How many drinks containing alcohol do you have on a typical day when you are drinking?: 3 or 4 3. How often do you have six or more drinks on one occasion?: Never Total Score: 2 OTILIA-7 AMB Questionnaire OTILIA-7 Date OTILIA - 7 assessed: 04/16/25 Source: Developed by Drs. Rick Fuller, Jasmin Berger, Jaiden Hudson and colleagues, with an educational jason from [employer]. Review of Systems Const Details: per HPI. Physical exam (Primary Care) Vital Signs: Last Vital Signs Temp 97.3 F 04/16/25 11:46 Pulse 90 04/16/25 11:46 BP 140/90 H 04/16/25 11:46 Pulse Ox 98 04/16/25 11:46 BMI result Body Mass Index 37.8 Tobacco/Smoking Status: Tobacco use Status Tobacco use date assessed 03/24/25 04/16/25 11:50 Patient Tobacco Use Status Never used Tobacco 04/16/25 11:50 e-Cigarette/Vaping Use Never Used 04/16/25 11:50 Depression Screening Interpretation: Negative Thrive Assessment: Date of Thrive Assessment Date Thrive assessed 03/17/25 04/16/25 11:50 Currently or been in a relationship where the following occur: No concerns reported Const Other: Pertinent findings are in BOLD GENERAL APPEARANCE NAD, activity normal for age, well developed/ well nourished, no cyanosis, pallor, or diaphoresis. EYES lids/conjunctiva normal. EARS/NOSE/THROAT Mucous membranes moist, nares normal, lips/teeth normal uvula midline without oral pharyngeal erythema, exudate or swelling TMs normal bilaterally. No lymphangitis/lymphedema. HEAD/NECK normocephalic atraumatic, no facial trauma, neck is supple. RESPIRATORY respiratory effort normal, speaks in full sentences, no tripod position, no accessory muscle use. Lungs clear to auscultation without rhonchi, wheezes, rales CARDIAC Regular rate and rhythm, no edema. ABDOMINAL Soft, ND/NT. No evidence of fluid wave. No pulsatile masses on exam, rebound tenderness, Kelley sign or pain over Mcburney's point. MUSCLES/EXTREMITIES No abnormal range of motion, no swelling. SKIN Warm, pink and dry. No rashes, dermatoses, petechiae or lesions. NEUROLOGICAL Speech is clear and appropriate. Normal level of consciousness. Gait and coordination are normal. 5/5 strength in all extremities. PSYCH Normal mood and affect. Judgement/competence is appropriate Coding Level of Care Code Est Pt Level 3 (49716) Diagnoses Anxiety F41.9 Time Spent (min) 30 Assessment & Plan Assessment & Plan (1) Anxiety: Code(s): F41.9 - Anxiety disorder, unspecified Category: Medical Plan: - The patient reports feeling better on bupropion but has experienced concerning side effects, including an episode of involuntary movements/twitching. - Due to the risk of this symptom progressing to a seizure, which is a known serious side effect of bupropion, continuation of the medication is not safe. - Bupropion will be discontinued from the patient's medication list. - The patient was strongly advised to stop taking the medication, though he expressed a desire to continue it. - Alternatives such as fluoxetine were offered, but the patient refused. - Psychiatry referral was placed to assist with depression/ ADD management. Plan I discussed with the patient my significant concern regarding his reported episode of involuntary movements while on bupropion. I explained that this is a serious side effect that indicates an increased risk for seizures, which can be life-threatening. I strongly advised him to discontinue the medication immediately for his own safety. The patient was upset with this recommendation, as he feels the medication has been very beneficial for his mood and concentration. I acknowledged his positive experience but reiterated that the safety risk outweighs the benefits. I offered an alternative medication, fluoxetine, which he refused. We discussed a referral to a psychiatrist for further evaluation of potential ADHD and for expert opinion on medication management. I explained that if the psychiatrist deems it safe, they could manage his treatment, but I could not personally continue the prescription. I have documented the discontinuation of bupropion from his chart and placed the referral for psychiatry. Orders: Referrals Psychiatry Referral F41.9 - Anxiety disorder, unspecified Medications: Discontinued 2 bupropion HCl SR (Wellbutrin SR) Discontinued Reason: Doctor's Order 150 mg PO DAILY 30 tabs 2RF
[2025-04-16 11:46] VITALS: BP 140/90; PULSE 90; TEMP 36.3; O2SAT 98; BMI 37.8
--- OUTSIDE RECORDS SUMMARY | 2025-04-16 14:29 | XMS_ITS | Patient Health Record ---
Author Organization [facility] Address [address] [place] [address] Care Team Providers Care Learning Development Specialist Name Role Phone Yon LEYVA, Nishant Primary Care Provider Unava Rick Lilly [phone] Allergies Allergen (clinical drug ingredient) Drug/Non Drug Allergy documented on EMR Reaction Allergy Type Onset Date Status Penicillin Unknown Drug Allergy Active dogs, cats,dust,mold,grass and cranberrys (uncoded) Unknown Allergy Active Latex latex (uncoded) Unknown Allergy Acti ve Results Component Value Reference Range Notes Liver Panel Reviewed date:02/22/2025 04:29:12 PM Interpretation: Performing Lab:[facility], [address] [place] [id number] Notes/Report: Bilirubin Total 0.9 0.0-1.0 mg/dL Bilirubin Direct 0.3 0.0-0.5 mg/dL Aspartate Amino Transferase 32 5-37 U/L Alanine Aminotransferase 40 0-40 U/L Total Protein 6.3 6.5-8.0 g/dL Albumin Level 4.0 3.5-5.0 g/dL Alkaline Phosphatase 51 39-117 U/L US abdomen comp w elastograp hy Reviewed date:02/22/2025 04:31:23 PM Interpretation: Performing Lab: Notes/Report: [address] [address] Ultrasound Report Signed with Addenda Patient: Cecy Dillon MR#: [id number] : 1970 Acct:[id number] Age/Sex: 54 / M ADM Date: 01/07/25 Loc: HO.US Attending Dr: Rick Frances MD Ordering Physician: Rick Frances MD Date of Service: 01/07/25 Procedure(s): US abdomen comp w elastography Accession Number(s): [id number] cc: Nishant Marvin MD; Rick Frances MD [...] in OV> 01/07/2555 DD/ TD/TT: 01/07/25 0833 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 Frances on [...] Problem Screening for malignant neoplasm of colon (520063274) Encounter for screening for malignant neoplasm of colon (Z12.11) Active confirmed Problem Family history of polyp of colon (771490300) Family history of colonic polyps (Z83.71) Active confirmed Problem Fatty liver (016606639) Fatty liver (K76.0) Active confirmed Problem Erosive esophagitis (24477034) Erosive esophagitis (K22.10) Active confirmed Problem Esophageal ring (49097449) Esophageal ring (K22.2) Active confirmed Problem Esophageal dysphagia (56423788) Esophageal dysphagia (R13.10) Active confirmed Vital Signs Temperature 98.4 degrees Fahrenheit 11/19/2024 Blood pressure diastolic 01 mm Hg 11/19/2024 Height 65 in 11/19/2024 Blood pressure systolic 001 mm Hg 11/19/2024 Weight 259.6 lbs 11/19/2024 BMI 43.19 kg/m2 11/19/2024 Procedures Procedure Date Ordered Date Performed Result Body Sit e UPPER GI ENDOSCOPY 11/19/2024 N/A COLONOSCOPY 11/19/2024 N/A Encounters Encounter Location Date Provider Diagnosis [facility] [address] [place] [phone] 02/23/2025 Rick Frances [facility] [address] [place] [phone] 11/19/2024 Rick Frances Encounter for screening for malignant neoplasm of colon Z12.11 ; Erosive esophagitis K22.10 ; Family history of colonic polyps Z83.71 ; Family history of colon cancer Z80.0 ; Fatty liver K76.0 and Elevated liver function tests R79.89 [facility] [address] [place] [phone] 11/19/2024 Rick Frances [facility] [address] [place] [phone] 02/20/2025 Rick Frances [facility] [address] [place] [phone] 02/24/2025 Rick Frances Assessments Encounter Date Diagnosis [...] Insured Coverage Start Date Coverage End Date [employer] [address] [place] [address] [id number] CECY DILLON Self - patient is the insured Medical (General) History Medical History History ICD Code Hyperplastic colon polyps-colonoscopy 2010 Sleep apnea-uses a CPAP mask Asthma Bronchitis Denies ID,DM,CVA,renal disease EGD with balloon dilation in 05/2012-sma [...]
== END 2025-04-16 12:39 | disposition home or self-care (01) ==
LOC: HO.HMCH 11:22
PROVIDERS: PCP Internal Medicine; Visit Provider Internal Medicine
DX: F41.9 Anxiety disorder, unspecified (principal)

== ENCOUNTER 2025-04-22 16:00 | Outpatient (AMB) | payer BC, SELFPAY ==
--- OUTSIDE RECORDS SUMMARY | 2025-02-23 04:40 | XMS_ITS ---
Author Organization [facility] Address [address] [place] [address] Care Team Providers Care Warehouse Attendant Name Role Phone Nishant Marvin MD Primary Care Provider Unava Rick Lilly [phone] REASON FOR VISIT screening colon Encounters Encounter Location Date Provider Diagnosis [facility] [place] Out[place] [address] [place] [address] [place] [id number] 02/23/2025 Rick Frances Plan Of Treatment No Information Progress Notes * CECY DILLONDOB:[birth year] (55 yo M)Acc No.[id number]:02/23/2025 EGD and COL/MAC Patient: CECY SURESH Provider: Sean Frances MD :1970 A ge:54 Y S ex:Male Date:02/23/2025 Address:[address] [place] [address] [place] Pcp:Nishant Marvin MD Subjective: * Chief Complaints: * S creening colon Billing Information: * Procedure Codes: * The named appointment provid er may or may not be the originator of this progress note, and it is not deemed complete until electronically signed by the appointment provider. Sign off status: Pending * Provider: Sean Frances MD Date: 0 02/23/2025 Generated for Printi ng/Faxing/eTransmitting on: 06/23/2024 04:36 AM EST
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
--- OUTSIDE RECORDS SUMMARY | 2025-04-23 04:37 | XMS_ITS | Patient Health Record ---
Author Organization [facility] Address [address] [place] [address] Care Team Providers Care Apartment Leasing Specialist Name Role Phone Yon LEYVA, [place] Primary Care Provider Unava Rick Lilly [phone] Allergies Allergen (clinical drug ingredient) Drug/Non Drug Allergy documented on EMR Reaction Allergy Type Onset Date Status dogs, cats,dust,mold,grass and cranberrys (uncoded) Unknown Allergy Active Latex latex (uncoded) Unknown Allergy Acti ve Penicillin Unknown Drug Allergy Active Results Component Value Reference Range Flag Notes Liver Panel Reviewed date:02/22/2025 04:29:12 PM Interpretation: Performing Lab:[facility], [address] [place] [phone] Notes/Report: Bilirubin Total 0.9 0.0-1.0 mg/dL N Bilirubin Direct 0.3 0.0-0.5 mg/dL N Aspartate Amino Transferase 32 5-37 U/L N Alanine Aminotransferase 40 0-40 U/L N Total Protein 6.3 6.5-8.0 g/dL L Albumin Level 4.0 3.5-5.0 g/dL N Alkaline Phosphatase 51 39-117 U/L N US abdomen comp w elastograp hy Reviewed date:02/22/2025 04:31:23 PM Interpretation: Performing Lab: Notes/Report: [address] [address] Ultrasound Report Signed with Ryann Patient: Cecy Dillon MR#: [id number] 473 : 1970 Acct:[id number] Age/Sex: 54 / M ADM Date: 01/07/25 Loc: HO.US Attending Dr: Rick Frances MD Ordering Physician: Rick Frances MD Date of Service: 01/07/25 Procedure(s): US abdomen comp w elastography Accession Number(s): [id number] cc: Nishant Marvin MD; Rick Frances MD [...] Rick Loya MD 01/07/2025 08:55 AM EDT Dictated By: Rick Loya MD Signed By: <Electronically signed by Rick Loya MD in OV> 01/07/25 0855 DD/ TD/TT: 01/07/25 0833 Casualty Underwriter: Pathology (Not yet reviewed by provider) Interpretation: Performing Lab:[facility], [address] [place] [phone] Notes/Report: Reason For Referral Referring Provider First Name Nishant Referring Provider Last Name Yon Referring Provider Speciality Internal M edicine Referred Organization [facility] Referred Provider Rick Frances Referred Address [address] [place] [phone], Referred Provider Specialty Gastroentero logy General Notes requested [facility] for visit with Dr. Frances on 11-19-[address] Marvin's office dated 11-19-24 Referral Priority Routine Medications Medication SIG (Take, Route, Frequency, Duration) Notes Start Date End Date Status ProAir HFA 108 (90 Base) MCG/ACT Aerosol Solution USE 2 PUFFS 4 TIMES A DAY NEEDED INHALATION 30 DAYS Inhalation; Duration: 25 Active Albuterol Sulfate Ac tive Topiramate 25 MG Tablet TAKE 1 TABLET BY MOUTH EVERY DAY FOR 30 DAYS Oral; Duration: 30 Days Active Montelukast Sodium 10 MG Tablet TAKE 1 TABLET AT BEDTIME ONCE A DAY ORALLY 30 DAYS Oral; Duration: 30 Active Omeprazole 20 MG Capsule Delayed Release 1 Orally Once a day every morning; Duration: 30 days 02/24/2025 Active Immunizations Vaccine Route Administration Date Status Comme nts Influenza Unknown 02/02/2018 Administered Influenza Unknown 02/19/2024 Administered Social History Social History Drug/Alcohol: Social Info Question Answer Notes AUDIT-C (Standard) Did you have a drink containing alcohol in the past year? 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 Section Notes: Nonsmoker; drinks 4-6 beers daily Nonsmoker; drinks 4-6 beers daily Nonsmoker; drinks 4-6 beers every other day Nonsmoker; drinks 4-6 beers every other day but quit in 08/2024 Problems Problem Type SNOMED Code ICD Code Onset Dates Problem Status W/U Status Risk Notes Problem Screening for malignant neoplasm of colon (350582426) Encounter for screening for malignant neoplasm of colon (Z12.11) Active confirmed Problem Family history of polyp of colon (506360345) Family history of colonic polyps (Z83.71) Active confirmed Problem Fatty liver (985522335) Fatty liver (K76.0) Active confirmed Problem Erosive esophagitis (77855984) Erosive esophagitis (K22.10) Active confirmed Problem Esophageal ring (42537087) Esophageal ring (K22.2) Active confirmed Problem Esophageal dysphagia (73700447) Esophageal dysphagia (R13.10) Active confirmed Vital Signs Temperature 98.4 degrees Fahrenheit 11/19/2024 Blood pressure diastolic 01 mm Hg 11/19/2024 Height 65 in 11/19/2024 Blood pressure systolic 001 mm Hg 11/19/2024 Weight 259.6 lbs 11/19/2024 BMI 43.19 kg/m2 11/19/2024 Procedures Procedure Date Ordered Date Performed Result Body Sit e UPPER GI ENDOSCOPY 11/19/2024 N/A COLONOSCOPY 11/19/2024 N/A Encounters Encounter Location Date Provider Diagnosis [facility] [address] [place] [phone] 02/23/2025 Rick Frances [facility] [address] [place] [phone] 11/19/2024 Rick Frances Encounter for screening for malignant neoplasm of colon Z12.11 ; Erosive esophagitis K22.10 ; Family history of colonic polyps Z83.71 ; Family history of colon cancer Z80.0 ; Fatty liver K76.0 and Elevated liver function tests R79.89 [facility] [address] [place] [phone] 11/19/2024 Rick Frances [facility] [address] [place] [phone] 02/20/2025 Rick Frances [facility] [address] [place] [address], [place] [address] 02/24/2025 Rick Frances Assessments Encounter Date Diagnosis [...] Insured Coverage Start Date Coverage End Date [facility] PROFESSIONAL CLAIMS [address] [place] [address] [id number] CECY DILOLN Self - patient is the insured Medical [...] stricture nor ring Surgical History Surgery Date(Month/Year) hernia surgery x 2 tonsillectomy adenoidectomy tubes in ears
== END 2025-04-22 16:35 | disposition home or self-care (01) ==
PROVIDERS: PCP Internal Medicine; Visit Provider Psychiatry & Neurology Neurology
DX: G43.109 Migraine with aura, not intractable, without status migrainosus (principal); G56.03 Carpal tunnel syndrome, bilateral upper limbs; F39 Unspecified mood [affective] disorder
CPT/HCPCS: 99214

== ENCOUNTER → 2025-04-28 11:32 | Outpatient (BNVA) | payer OTHER, SELFPAY | PROVIDERS: PCP Internal Medicine; Visit Provider Physician Assistant Medical | DX: S61.210A Laceration without foreign body of right index finger without damage to nail, initial encounter (principal); W26.8XXA Contact with other sharp object(s), not elsewhere classified, initial encounter | CPT/HCPCS: 12002; 90715; 99203 ==

== ENCOUNTER → 2025-05-06 11:54 | Outpatient (BNVA) | payer OTHER, SELFPAY | PROVIDERS: PCP Internal Medicine; Visit Provider Emergency Medicine | DX: S61.210D Laceration without foreign body of right index finger without damage to nail, subsequent encounter (principal); L03.011 Cellulitis of right finger; W26.8XXD Contact with other sharp object(s), not elsewhere classified, subsequent encounter; Z02.79 Encounter for issue of other medical certificate | CPT/HCPCS: 99213 ==

== ENCOUNTER → 2025-05-08 09:10 | Outpatient (BNVA) | payer OTHER, SELFPAY | PROVIDERS: PCP Internal Medicine; Visit Provider Emergency Medicine | DX: S61.210D Laceration without foreign body of right index finger without damage to nail, subsequent encounter (principal); L03.011 Cellulitis of right finger; Z02.79 Encounter for issue of other medical certificate | CPT/HCPCS: 99213 ==

== ENCOUNTER → 2025-05-13 08:15 | Outpatient (BNVA) | payer OTHER, SELFPAY | PROVIDERS: PCP Internal Medicine; Visit Provider Emergency Medicine | DX: Z48.02 Encounter for removal of sutures (principal); S61.210D Laceration without foreign body of right index finger without damage to nail, subsequent encounter; W26.8XXD Contact with other sharp object(s), not elsewhere classified, subsequent encounter; Z02.79 Encounter for issue of other medical certificate | CPT/HCPCS: 99213 ==

== ENCOUNTER 2025-05-29 10:21 | Outpatient (REF) | payer OTHER, SELFPAY ==
--- OUTSIDE RECORDS SUMMARY | 2025-02-23 04:40 | XMS_ITS ---
Author Organization [facility] Address [address] [place] [address] Care Team Providers Care Motion Picture Film Examiner Name Role Phone Nishant Marvin MD Primary Care Provider Unava Rick Lilly [phone] REASON FOR VISIT screening colon Encounters Encounter Location Date Provider Diagnosis [facility] [place] [address] [place] [address] [place] [id number] 02/23/2025 Rick Frances Plan Of Treatment No Information Progress Notes * CECY DILLONDOB:[birth year] (55 yo M)Acc No.[id number]:02/23/2025 EGD and COL/MAC Patient: CECY SURESH Provider: Sean Frances MD :1970 A ge:54 Y S ex:Male Date:02/23/2025 Address:[address] [place] [address] [place] Pcp:Nishant Marvin MD Subjective: * Chief Complaints: * S creening colon Billing Information: * Procedure Codes: * The named appointment provid er may or may not be the originator of this progress note, and it is not deemed complete until electronically signed by the appointment provider. Sign off status: Pending * Provider: Sean Frances MD Date: 0 02/23/2025 Generated for Printi ng/Faxing/eTransmitting on: 1 07/30/2024 10:24 AM EST
--- OUTSIDE RECORDS SUMMARY | 2025-05-29 10:25 | XMS_ITS | Patient Health Record ---
Author Organization [facility] Address [address] [place] [address] Care Team Providers Care Finish Production Manager Name Role Phone Nishant Marvin MD Primary Care Provider Rick Elizabeth [phone] Allergies Allergen (clinical drug ingredient) Drug/Non Drug Allergy documented on EMR Reaction Allergy Type Onset Date Status dogs, cats,dust,mold,grass and cranberrys (uncoded) Unknown Allergy Active Latex latex (uncoded) Unknown Allergy Acti ve Penicillin Unknown Drug Allergy Active Results Component Value Reference Range Flag Notes US abdomen comp w elastograp hy Reviewed date:02/22/2025 04:31:23 PM Interpretation: Performing Lab: Notes/Report: [address] [address] Ultrasound Report Signed with Addenda Patient: Cecy Dillon MR#: [id number] 473 : 1970 Acct:[id number] Age/Sex: 54 / M ADM Date: 01/07/25 Loc: HO.US Attending Dr: Rick Frances MD Ordering Physician: Rick Frances MD Date of Service: 01/07/25 Procedure(s): US abdomen comp w elastography Accession Number(s): [id number] cc: Nishant Marvin MD; Rick Frances MD [...] OV> 01/07/25 0855 DD/ TD/TT: 01/07/25 0833 Mental Health Program Specialist: Pathology (Not yet reviewed by provider) Interpretation: Performing Lab:[address] [place] [address] Notes/Report: Liver Panel Reviewed date:02/22/2025 04:29:12 PM Interpretation: Performing Lab:[facility], [address] [place] [phone] Notes/Report: Bilirubin Total 0.9 0.0-1.0 mg/dL N Bilirubin Direct 0.3 0.0-0.5 mg/dL N Aspartate Amino Transferase 32 5-37 U/L N Alanine Aminotransferase 40 0-40 U/L N Total Protein 6.3 6.5-8.0 g/dL L Albumin Level 4.0 3.5-5.0 g/dL N Alkaline Phosphatase 51 39-117 U/L N Reason For Referral Referring Provider First Name Nishant Referring Provider Last Name Yon Referring Provider Speciality Internal M edicine Referred Organization [facility] Referred Provider Rick Frances Referred Address [address] [place] [phone], Referred Provider Specialty Gastroentero logy General Notes requested [facility] for visit with Dr. 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: Nonsmoker; drinks 4-6 beers daily Nonsmoker; drinks 4-6 beers daily Nonsmoker; drinks 4-6 beers every other day Nonsmoker; drinks 4-6 beers every other day but quit in 08/2024 Problems Problem Type SNOMED Code ICD Code Onset Dates Problem Status W/U Status Risk Notes Problem Screening for malignant neoplasm of colon (482393196) Encounter for screening for malignant neoplasm of colon (Z12.11) Active confirmed Problem Family history of polyp of colon (363609570) Family history of colonic polyps (Z83.71) Active confirmed Problem Fatty liver (232742780) Fatty liver (K76.0) Active confirmed Problem Erosive esophagitis (54228086) Erosive esophagitis (K22.10) Active confirmed Problem Esophageal ring (18794114) Esophageal ring (K22.2) Active confirmed Problem Esophageal dysphagia (03952826) Esophageal dysphagia (R13.10) Active confirmed Vital Signs Temperature 98.4 degrees Fahrenheit 11/19/2024 Blood pressure diastolic 01 mm Hg 11/19/2024 Height 65 in 11/19/2024 Blood pressure systolic 001 mm Hg 11/19/2024 Weight 259.6 lbs 11/19/2024 BMI 43.19 kg/m2 11/19/2024 Procedures Procedure Date Ordered Date Performed Result Body Sit e UPPER GI ENDOSCOPY 11/19/2024 N/A COLONOSCOPY 11/19/2024 N/A Encounters Encounter Location Date Provider Diagnosis [facility] Out[place] [address] [place] [phone] 02/23/2025 Rick Frances [facility] [address] [place] [phone] 11/19/2024 Rick Frances Encounter for screening for malignant neoplasm of colon Z12.11 ; Erosive esophagitis K22.10 ; Family history of colonic polyps Z83.71 ; Family history of colon cancer Z80.0 ; Fatty liver K76.0 and Elevated liver function tests R79.89 [facility] [address] [place] [phone] 11/19/2024 Rick Frances [facility] [address] [place] [phone] 11/19/2024 Rick Frances [facility] [address] [place] [address], [place] [address] 02/20/2025 Rick Frances [facility] [address] [place] [phone] 02/24/2025 Rick Frances Assessments Encounter Date Diagnosis [...] Pathology 02/23/2025 US abdomen comp w elastography 5 Future Test Test Name Order Date UPPER GI ENDOSCOPY BALLOOON DILATION OF ESOPH 05/09/2012 UPPER GI ENDOSCOPY [place]ALL[place] DILATION OF ESOPH 08/13/2018 COLONOSCOPY 08/13/2018 Insurance Providers Payer Name Payer Address Payer Phone Subscriber Number Group Number Insured Name Patient Relationship to Insured Coverage Start Date Coverage End Date [facility] [email or web address] PROFESSIONAL CLAIMS [address] [place] [address] [id number] CECY DILLON Self - patient is the insured Medical (General) History Medical History History ICD Code Hyperplastic colon polyps-colonoscopy 2010 Sleep apnea-uses a CPAP mask Asthma Bronchitis Denies [place],DM,CVA,renal disease EGD with balloon dilation in 05/2012-sma [...]
--- NOTE | 2025-05-29 11:00 | EEG_ITS ---
H/O concussion,Essential hypertension, Obesity, Obstructive sleep apnea, Allergic rhinitis, Migraine equivalent syndrome, Asthma- pt had an event in Mar 2025- 40 seconds in duration of twitch - no incontinence, biting of tongue or confusion with event- this event happened 2-3 days after starting the me Wellbutrin for ADD - pt has migraine with visual aura (visual dysfunction and mild headache lasting for hours with normal eye examination) uses verapamil with good results Medication: wellbutrin, verapramil Technical Description Photic Stimulation: completed Hyperventilation: performed- good effort Behavioral State: cooperative State of Consciousness: awake Skull Defect: no Sedation: no Handedness: Left Duration: 31 mins 24 secs Last Meal: 05/29/25 9am Time / date of last symptom: Mar 2025 Description: This is a 16 channel EEG with an EKG lead. Background EEG rhytham is 20 or higher Hz, 5-100 mV with no obvious focal activity, sharp waves or spikes. Photic stimulation and hyperventilation did not produce any significant abnormality. EKG lead did not reveal any significant abnormality. Impression: Unremarkable EEG MTDD
== END 2025-05-29 10:22 | disposition home or self-care (01) ==
LOC: HO.NEURO 10:21
PROVIDERS: PCP Internal Medicine; Visit Provider Psychiatry & Neurology Neurology
DX: R56.9 Unspecified convulsions (principal)
CPT/HCPCS: 95816

== ENCOUNTER → 2025-05-29 11:00 | Outpatient (BNV) | payer OTHER, SELFPAY | PROVIDERS: PCP Internal Medicine; Visit Provider Psychiatry & Neurology Neurology | DX: R56.9 Unspecified convulsions (principal) | CPT/HCPCS: 95816 ==